=== PATIENT | male | born 1965 | race African-American/Black ===

== ENCOUNTER 2017-02-25 12:38 | Inpatient (IN) | payer OTHER ==
[2017-02-25 15:54] VITALS: BMI 22.5
--- NOTE | 2017-02-25 17:30 | HP ---
Admission ROS [facility] - [facility] Chief Complaint: I WANT TO GO TO REHAB Allergies/Adverse Reactions: Allergies Allergy/AdvReac Type Severity Reaction Status Date / Time No Known Allergies Allergy Verified 02/25/17 16:38 History of Present Illness: 51 YEARS OLD MALE WITH LONG HISTORY OF ALCOHOL NICOTINE, COCAINE DEPENDENCE METHADONE 40 MG AND BIPOLAR II IS ADMITTED TO REHAB Exam Limitations: No Limitations - Ebola screening Have you traveled outside of the country in the last 21 days: No Have you had contact with anyone from an Ebola affected area: No Have you been sick,other than usual withdrawal symptoms: No Do you have a fever: No - Review of Systems Constitutional: Loss of Appetite, Unintentional Wgt. Loss, Unexplained wgt Loss EENT: reports: No Symptoms Reported Respiratory: reports: No Symptoms reported Cardiac: reports: No Symptoms Reported GI: reports: Poor Appetite : reports: No Symptoms Reported Musculoskeletal: reports: No Symptoms Reported Integumentary: reports: No Symptoms Reported Neuro: reports: No Symptoms reported Endocrine: reports: No Symptoms Reported Hematology: reports: No Symptoms Reported Psychiatric: reports: Judgement Intact, Mood/Affect Appropiate, Orientated x3 Other Systems: Reviewed and Negative Patient History - Patient Medical History Hx Anemia: No Hx Asthma: No Hx Chronic Obstructive Pulmonary Disease (COPD): No Hx Cancer: No Hx Cardiac Disorders: No Hx Congestive Heart Failure: No Hx Hypertension: No (HISTORY OF HYPERTENSION) Hx Hypercholesterolemia: No Hx Pacemaker: No HX Cerebrovascular Accident: No Hx Seizures: No Hx Dementia: No Hx Diabetes: No Hx Gastrointestinal Disorders: No Hx Liver Disease: No Hx Genitourinary Disorders: No Hx Sexually Transmitted Disorders: No Hx Renal Disease (ESRD): No Hx Thyroid Disease: No Hx Human Immunodeficiency Virus (HIV): No Hx Hepatitis C: No Hx Depression: No Hx Suicide Attempt: No Hx Bipolar Disorder: Yes Hx Schizophrenia: No - Patient Surgical History Past Surgical History: No Hx Neurologic Surgery: No Hx Cataract Extraction: No Hx Cardiac Surgery: No Hx Lung Surgery: No Hx Breast Surgery: No Hx Breast Biopsy: No Hx Abdominal Surgery: No Hx Appendectomy: No Hx Cholecystectomy: No Hx Genitourinary Surgery: No Hx Orthopedic Surgery: No - PPD History Previous Implant?: Yes Documented Results: Negative w/proof Implanted On Prior R Admission?: Yes Date: 07/26/16 Results: 0 mm PPD to be Administered?: No - Smoking Cessation Smoking history: Current every day smoker Have you smoked in the past 12 months: Yes Aproximately how many cigarettes per day: 10 Cigars Per Day: 0 Hx Chewing Tobacco Use: No Initiated information on smoking cessation: Yes 'Breaking Loose' booklet given: 02/25/17 - Substance & Tx. History Hx Alcohol Use: Yes Hx Substance Use: Yes Substance Use Type: Alcohol, Cocaine Hx Substance Use Treatment: Yes (07/24-07/26/16 [facility]) - Substances Abused Alcohol Route: Oral Frequency: 1-2 times per week Amount used: [id number] Age of first use: 16 Date of Last Use: 02/25/17 Family Disease History - Family Disease History Family Disease History: Heart Disease: Brother ( HEART ATTACK), CA: Father ( THROAT), Mother ( ) Admission Physical Exam [facility] - Vital Signs Vital Signs: Vital Signs - 24 hr 02/25/17 15:50 Temperature 98 F Pulse Rate 74 Respiratory 20 Rate Blood Pressure 137/32 - Physical General Appearance: Yes: No Apparent Distress, Appropriately Dressed, Thin HEENTM: Yes: Hearing grossly Normal, Normal ENT Inspection, Normocephalic, Normal Voice Respiratory: Yes: Chest Non-Tender, Lungs Clear, Normal Breath Sounds, No Respiratory Distress, No Accessory Muscle Use Neck: Yes: Supple, Trachea in good position Breast: Yes: Breasts Symetrical Cardiology: Yes: Regular Rhythm, Regular Rate, S1, S2 Abdominal: Yes: Non Tender, Soft Genitourinary: Yes: Within Normal Limits Back: Yes: Normal Inspection Musculoskeletal: Yes: full range of Motion, Gait Steady Extremities: Yes: Normal Inspection, Normal Range of Motion, Non-Tender Neurological: Yes: Fully Oriented, Alert, Motor Strength 5/5, Normal Response Integumentary: Yes: Warm Lymphatic: Yes: Within Normal Limits - Diagnostic (1) Alcohol dependence with uncomplicated withdrawal Current Visit: Yes Status: Acute (2) Cocaine dependence with withdrawal Current Visit: Yes Status: Chronic (3) Methadone maintenance therapy patient Current Visit: Yes Status: Chronic Comment: 40 MG VERIFICATION PENDING (4) Nicotine dependence Current Visit: Yes Status: Acute Qualifiers: Nicotine product type: cigarettes Substance use status: in withdrawal Qualified Code(s): F17.213 - Nicotine dependence, cigarettes, with withdrawal (5) Weight loss Current Visit: Yes Status: Acute Cleared for Admission [facility] - Detox or Rehab [facility] Level of Care: Observation Bed Detox Regimen/Protocol: Not Applicable Claeared for Rehab Admission: Yes [facility] Breath Alcohol Content Breath Alcohol Content: 0.098 Urine Drug Screen - Results Drug Screen Negative: No Urine Drug Screen Results: CHRISTOPHER-Cocaine, MTD-Methadone
[2017-02-25] MEDS ORDERED: IBUPROFEN 400 MG TABLET (FP) PO PRN (17:33)
[2017-02-25] MEDS ORDERED: P-EPHED 60MG/TRIPROLIDI 2.5MG TABLET PO PRN (17:33)
[2017-02-25] MEDS ORDERED: diphenhydrAMINE HCL 50 MG CAPSULE PO PRN (17:33)
[2017-02-25] MEDS ORDERED: MENTHOL/PHENOL 1 EACH UD MM PRN (17:33)
[2017-02-25] MEDS ORDERED: LOPERAMIDE HCL 2 MG CAPSULE PO PRN (17:33)
[2017-02-25] MEDS ORDERED: MAG HYDROX/AL HYDROX/SIMETH 30 ML UNIT-DOSE CUP PO PRN (17:33)
[2017-02-25] MEDS ORDERED: NICOTINE POLACRILEX 2 MG GUM BC PRN (17:33)
[2017-02-25] MEDS ORDERED: ACETAMINOPHEN 325 MG TABLET (FP) PO PRN (17:33)
[2017-02-25] MEDS ORDERED: MAGNESIUM HYDROX 2400MG/30ML ORAL SUSPENSION 30 ML CUP PO PRN (17:33)
[2017-02-25] MEDS ORDERED: guaiFENesin/D-METHORPHAN HB 10 ML UNIT-DOSE CUPS PO PRN (17:33)
[2017-02-25] MEDS ORDERED: hydrOXYzine PAMOATE 50 MG CAPSULE (FP) PO PRN (17:33)
[2017-02-25] MEDS ORDERED: MAGNESIUM CITRATE 300 ML BOTTLE PO PRN (17:33)
[2017-02-25] MEDS: THIAMINE HCL 100 MG TABLET (FP) PO SCH (21:39)
[2017-02-25 23:18] LABS: URINE APPEARANCE CLEAR; URINE BILIRUBIN NEGATIVE (NEGATIVE); URINE BLOOD NEGATIVE (NEGATIVE); URINE COLOR YELLOW; URINE GLUCOSE (UA) NEGATIVE (NEGATIVE); URINE KETONE NEGATIVE (NEGATIVE); URINE LEUK ESTERASE NEGATIVE (NEGATIVE); URINE NITRITE NEGATIVE (NEGATIVE); URINE PROTEIN NEGATIVE (NEGATIVE); URINE UROBILINOGEN 2.0 E.U/dl E.U./dl (0.2-1.0)
--- NOTE | 2017-02-26 06:20 | HP ---
Psychiatrist Admission - Data Date of interview: 02/26/17 Admission source: [facility] Identifying data: This is the first [facility] admission for this 51 years old single Black male, unemployed with no source of incme, living in transitional housing Medical History: unremarkable. Smokes 10 cigarettes daily Psychiatric History: Denies history of previous psychiatric treatment Physical/Sexual Abuse/Trauma History: Denies emotional, physical or sexual abuse as wel as DV relationship Additional Comment: Reports history of 2 previous misdemeanor arrests Vital Signs: Vital Signs - 24 hr 02/25/17 02/26/17 02/26/17 15:50 00:30 03:30 Temperature 98 F Pulse Rate 74 Respiratory 20 20 20 Rate Blood Pressure 137/32 Allergies/Adverse Reactions: Allergies Allergy/AdvReac Type Severity Reaction Status Date / Time No Known Allergies Allergy Verified 02/25/17 16:38 Date of last physical exam: 02/25/17 Concur with the findings of this exam: Yes - Substance Abuse/Tx History Hx Alcohol Use: Yes Hx Substance Use: No Substance Use Type: Alcohol (Started drinking alcohol at age 16, consumes 10x 16oz of beer daily. Last drink on 02/25/17) Hx Substance Use Treatment: Yes (Attends [facility]. 2 previous inpt detox & one rehab) - Admission Criteria Previous failed treatment: No Poor recovery environment: Yes Comorbidities: Yes Lacks judgement: Yes Mental Status Exam - Mental Status Exam Alert and Oriented to: Time, Place, Person Cognitive Function: Fair Patient Appearance: Well Groomed Mood: Hopeful, Euthymic Affect: Constricted Patient Behavior: Cooperative Speech Pattern: Clear Voice Loudness: Normal Thought Process: Intact, Goal Oriented Hallucinations: Denies Suicidal Ideation: Denies Homicidal Ideation: Denies Insight/Judgement: Fair Sleep: Poorly Appetite: Fair Muscle strength/Tone: Normal Gait/Station: Normal Psychiatric Findings - Problem List ([place] 1, 2,3) (1) Alcohol dependence with uncomplicated withdrawal Current Visit: Yes Status: Acute (2) Cocaine dependence with withdrawal Current Visit: Yes Status: Chronic (3) Opioid dependence on agonist therapy Current Visit: Yes Status: Acute (4) Nicotine dependence Current Visit: Yes Status: Acute (5) Substance-induced sleep disorder Current Visit: Yes Status: Acute - Initial Treatment Plan Initial Treatment Plan: 1) Start Trazadone 100 mg po HS for insomnia. 2) Monitor progress
[2017-02-26 09:52] LABS: MCH 33.4 pg (25.7-33.7); MCHC 32.5 g/dl (32.0-35.9); MEAN CELL VOLUME 102.7 fl (80-96); MEAN PLT VOLUME 8.7 fl (7.5-11.1); PLATELET COUNT 125 K/MM3 (134-434); RDW 12.8 % (11.9-15.9); WHITE BLOOD COUNT 4.4 K/mm3 (4.0-10.0)
[2017-02-26] MEDS ORDERED: METHADONE HCL 40 MG DISPERSABLE TABLET PO ONE (10:00)
[2017-02-26 10:24] LABS: ALBUMIN 3.3 g/dl (3.4-5.0); ALK PHOS 145 U/L (45-117); ANION GAP 9 (8-16); BILIRUBIN,TOTAL 0.9 mg/dL (0.2-1.0); CALCIUM 8.3 mg/dL (8.5-10.1); CO2 27 mmol/L (21-32); CREATININE 0.7 mg/dL (0.7-1.3); GLUCOSE,RANDOM 102 mg/dL (74-106); SGOT/AST 129 U/L (15-37); SGPT/ALT 93 U/L (12-78); TOT PROT 7.7 g/dl (6.4-8.2)
[2017-02-26] MEDS: PRENATAL VITAMINS W/ FOLIC ACID TABLET (FP) PO SCH (10:24)
[2017-02-26] MEDS: NICOTINE 14 MG/24 HOURS TOPICAL PATCH TD SCH (10:25)
--- NOTE | 2017-02-26 14:46 | EKG ---
Test Reason : Blood Pressure : / mmHG Vent. Rate : 054 BPM Atrial Rate : 054 BPM P-R Int : 120 ms QRS Dur : 112 ms QT Int : 478 ms P-R-T Axes : 078 -28 -21 degrees QTc Int : 453 ms SINUS BRADYCARDIA RIGHT ATRIAL ENLARGEMENT VOLTAGE CRITERIA FOR LEFT VENTRICULAR HYPERTROPHY ST ELEVATION, CONSIDER EARLY REPOLARIZATION, PERICARDITIS, OR INJURY NONSPECIFIC ST AND T WAVE ABNORMALITY ABNORMAL ECG NO PREVIOUS ECGS AVAILABLE Confirmed by LEXII BRADSHAW, YAMILETH ([id number]) on 02/26/2017 2:45:54 PM Referred By: Confirmed By:YAMILETH SHULTZ MD
[2017-02-26] MEDS: THIAMINE HCL 100 MG TABLET (FP) PO SCH (22:21)
[2017-02-26] MEDS: traZODone HCL 100 MG TABLET (FP) PO SCH (22:21)
[2017-02-27] MEDS: METHADONE HCL 40 MG DISPERSABLE TABLET PO SCH (07:13)
[2017-02-27] MEDS ORDERED: cloNIDine HCL 0.1 MG TABLET PO ONE (08:07)
[2017-02-27] MEDS: PRENATAL VITAMINS W/ FOLIC ACID TABLET (FP) PO SCH (10:35)
[2017-02-27] MEDS: NICOTINE 14 MG/24 HOURS TOPICAL PATCH TD SCH (10:36)
[2017-02-27] MEDS: THIAMINE HCL 100 MG TABLET (FP) PO SCH (21:40)
[2017-02-27] MEDS: traZODone HCL 100 MG TABLET (FP) PO SCH (21:40)
[2017-02-28] MEDS: METHADONE HCL 40 MG DISPERSABLE TABLET PO SCH (06:56)
[2017-02-28] MEDS: PRENATAL VITAMINS W/ FOLIC ACID TABLET (FP) PO SCH (10:06)
[2017-02-28] MEDS: NICOTINE 14 MG/24 HOURS TOPICAL PATCH TD SCH (10:06)
[2017-02-28] MEDS: THIAMINE HCL 100 MG TABLET (FP) PO SCH (22:25)
[2017-02-28] MEDS: traZODone HCL 100 MG TABLET (FP) PO SCH (22:26)
[2017-03-01] MEDS: METHADONE HCL 40 MG DISPERSABLE TABLET PO SCH (06:39)
[2017-03-01 07:05] VITALS: BP 169/78; PULSE 57; TEMP 98.7
[2017-03-01] MEDS: NICOTINE 14 MG/24 HOURS TOPICAL PATCH TD SCH (10:32)
[2017-03-01] MEDS: PRENATAL VITAMINS W/ FOLIC ACID TABLET (FP) PO SCH (10:32)
== END 2017-03-01 11:00 | disposition left against medical advice (07) | DRG 770 ==
LOC: YASAS 12:38 → Y3W 18:26
PROVIDERS: ADMIT Psychiatry & Neurology Psychiatry; ATTEND Psychiatry & Neurology Psychiatry
PROC: HZ42ZZZ Group Counseling for Substance Abuse Treatment, Cognitive-Behavioral (ICD-10-PCS; principal; 2017-03-01)
DX: F11.23 Opioid dependence with withdrawal (principal); F10.230 Alcohol dependence with withdrawal, uncomplicated; F14.23 Cocaine dependence with withdrawal; F17.210 Nicotine dependence, cigarettes, uncomplicated; F19.282 Other psychoactive substance dependence with psychoactive substance-induced sleep disorder; F31.81 Bipolar II disorder
CPT/HCPCS: 36415; 80053; 81003; 85027; 86593; 93005; 93010

== ENCOUNTER 2018-04-30 11:21 | Inpatient (IN) | payer OTHER ==
[2018-04-30 12:33] VITALS: BMI 22.8
[2018-04-30] MEDS ORDERED: IBUPROFEN 400 MG TABLET (FP) PO PRN (14:29)
[2018-04-30] MEDS ORDERED: guaiFENesin/D-METHORPHAN HB 10 ML UNIT-DOSE CUPS PO PRN (14:29)
[2018-04-30] MEDS ORDERED: ACETAMINOPHEN 325 MG TABLET (FP) PO PRN (14:29)
[2018-04-30] MEDS ORDERED: NICOTINE POLACRILEX 4 MG GUM BC PRN (14:29)
[2018-04-30] MEDS ORDERED: LOPERAMIDE HCL 2 MG CAPSULE PO PRN (14:29)
[2018-04-30] MEDS ORDERED: MAGNESIUM HYDROX 2400MG/30ML ORAL SUSPENSION 30 ML CUP PO PRN (14:29)
[2018-04-30] MEDS ORDERED: MAG HYDROX/AL HYDROX/SIMETH 30 ML UNIT-DOSE CUP PO PRN (14:29)
[2018-04-30] MEDS ORDERED: MAGNESIUM CITRATE 300 ML BOTTLE PO PRN (14:29)
[2018-04-30] MEDS ORDERED: MENTHOL/PHENOL 1 EACH UD MM PRN (14:29)
[2018-04-30] MEDS ORDERED: P-EPHED 60MG/TRIPROLIDI 2.5MG TABLET PO PRN (14:29)
--- NOTE | 2018-04-30 14:38 | HP ---
Admission [facility] - [facility] Chief Complaint: needs to get my life back. 36 yr h/o heroin and alcohol dependency seeking rehab before he starts using regularly again. Allergies/Adverse Reactions: Allergies Allergy/AdvReac Type Severity Reaction Status Date / Time lorazepam [From Ativan] Allergy Severe Rash Verified 04/30/18 14:21 acetaminophen [From Tylenol] Allergy Rash Verified 04/30/18 14:21 History of Present Illness: 52 y/o m pt started using heroin and alcohol @ age 25. Recently at [facility] for detox entered on 04/23/18 and d/c 04/27/18. now seeking rehab. Exam Limitations: No Limitations - Ebola screening Have you traveled outside of the country in the last 21 days: No (N) Have you traveled to any of the following countries: [place] Have you had contact with anyone from an Ebola affected area: No Have you been sick,other than usual withdrawal symptoms: No Do you have a fever: No - Review of Systems Constitutional: Unintentional Wgt. Loss (40 lbs weight loss x 3 months) EENT: reports: No Symptoms Reported Respiratory: reports: No Symptoms reported Cardiac: reports: No Symptoms Reported GI: reports: No Symptoms Reported : reports: No Symptoms Reported Musculoskeletal: reports: Muscle Pain Integumentary: reports: No Symptoms Reported Neuro: reports: No Symptoms reported Endocrine: reports: No Symptoms Reported Hematology: reports: No Symptoms Reported Psychiatric: reports: No Sypmtoms Reported Other Systems: Reviewed and Negative Patient History - Patient Medical History Hx Anemia: No Hx Asthma: No Hx Chronic Obstructive Pulmonary Disease (COPD): No Hx Cancer: No Hx Cardiac Disorders: No Hx Congestive Heart Failure: No Hx Hypertension: Yes Hx Hypercholesterolemia: No Hx Pacemaker: No HX Cerebrovascular Accident: No Hx Seizures: No Hx Dementia: No Hx Diabetes: No Hx Gastrointestinal Disorders: No Hx Liver Disease: No Hx Genitourinary Disorders: No Hx Sexually Transmitted Disorders: No Hx Renal Disease (ESRD): No Hx Thyroid Disease: No Hx Human Immunodeficiency Virus (HIV): No Hx Hepatitis C: No Hx Depression: No Hx Suicide Attempt: No Hx Bipolar Disorder: Yes Hx Schizophrenia: No - Patient Surgical History Past Surgical History: No Hx Neurologic Surgery: No Hx Cataract Extraction: No Hx Cardiac Surgery: No Hx Lung Surgery: No Hx Breast Surgery: No Hx Breast Biopsy: No Hx Abdominal Surgery: No Hx Appendectomy: No Hx Cholecystectomy: No Hx Genitourinary Surgery: No Hx Section: No Hx Orthopedic Surgery: No Anesthesia Reaction: No - PPD History Date: 07/26/16 Results: 0 mm - Reproductive History Patient is a Female of Child Bearing Age (11 -55 yrs old): No - Smoking Cessation Smoking history: Current every day smoker Have you smoked in the past 12 months: Yes Aproximately how many cigarettes per day: 10 Cigars Per Day: 0 Hx Chewing Tobacco Use: No Initiated information on smoking cessation: Yes 'Breaking Loose' booklet given: 04/30/18 - Substance & Tx. History Hx Alcohol Use: Yes Hx Substance Use: Yes Substance Use Type: Heroin Hx Substance Use Treatment: Yes (detox, otp) - Substances Abused Heroin Route: Inhalation Frequency: Daily Amount used: 8 bags/d Age of first use: 25 Date of Last Use: 04/30/18 Alcohol Route: Oral Frequency: Daily Amount used: beer 2-six packs/d Age of first use: 25 Date of Last Use: 04/30/18 Alcohol-beer/vodka Route: Oral Frequency: Daily Amount used: 2-6 pks./1/2 pt. Age of first use: 25 Date of Last Use: 04/30/18 Cocaine Route: Inhalation Frequency: 1-2 times per week Amount used: $20 Age of first use: 25 Date of Last Use: 04/29/18 Family Disease History - Family Disease History Family Disease History: Heart Disease: Brother ( HEART ATTACK), CA: Father ( THROAT), Mother ( ) Admission Physical Exam S - Vital Signs Vital Signs: Vital Signs - 24 hr 04/30/18 12:13 Temperature 97.6 F Pulse Rate 84 Respiratory 18 Rate Blood Pressure 116/77 - Physical General Appearance: Yes: No Apparent Distress, Disheveled, Thin HEENTM: Yes: EOMI, Hearing grossly Normal, Normocephalic, Normal Voice Respiratory: Yes: Chest Non-Tender, Lungs Clear, Normal Breath Sounds Neck: Yes: Supple, Trachea in good position Breast: Yes: Within Normal Limits Cardiology: Yes: Regular Rhythm, Regular Rate, S1, S2 Abdominal: Yes: Normal Bowel Sounds, Non Tender, Flat, Soft, Increased Bowel Sounds Genitourinary: Yes: Within Normal Limits Back: Yes: Within Normal Limits Musculoskeletal: Yes: Within Normal Limits Extremities: Yes: Within Normal Limits Neurological: Yes: Within Normal Limits, radiator repairer II-XII NML intact, Fully Oriented, Motor Strength 5/5 Integumentary: Yes: Within Normal Limits Lymphatic: Yes: Within Normal Limits - Diagnostic (1) Opioid dependence Current Visit: Yes Status: Chronic Qualifiers: Substance use status: uncomplicated Qualified Code(s): F11.20 - Opioid dependence, uncomplicated Comment: pt was at [facility] for detox from 04/23/18 through 04/27/18. (2) Alcohol dependence Current Visit: Yes Status: Chronic Qualifiers: Substance use status: uncomplicated Qualified Code(s): F10.20 - Alcohol dependence, uncomplicated (3) Nicotine dependence Current Visit: Yes Status: Chronic Qualifiers: Nicotine product type: cigarettes Substance use status: uncomplicated Qualified Code(s): F17.210 - Nicotine dependence, cigarettes, uncomplicated (4) Substance-induced sleep disorder Current Visit: Yes Status: Acute (5) Weight loss Current Visit: Yes Status: Acute (6) Cocaine dependence with withdrawal Current Visit: Yes Status: Chronic Cleared for Admission [facility] - Detox or Rehab Detox Regimen/Protocol: Clonidine, Not Applicable Claeared for Rehab Admission: Yes [facility] Breath Alcohol Content Breath Alcohol Content: 0.040 Urine Drug Screen - Results Drug Screen Negative: No Urine Drug Screen Results: CHRISTOPHER-Cocaine, OPI-Opiates, BZO-Benzodiazepines, MTD- Methadone
[2018-04-30] MEDS ORDERED: TUBERCULIN PPD 5 TU/0.1ML VIAL ID ONE ×2 (19:29→22:10)
[2018-04-30] MEDS ORDERED: MELATONIN 5 MG TABLETS PO PRN (22:00)
[2018-04-30] MEDS: THIAMINE HCL 100 MG TABLET (FP) PO SCH (22:06)
[2018-05-01] MEDS ORDERED: cloNIDine HCL 0.1 MG TABLET PO ONE (06:46)
--- NOTE | 2018-05-01 06:50 | PN ---
[facility] Progress Note Note: Patient's blood pressure was B/P 179/103. Patient is asymptomatic Vital Signs Temperature 98.2 F 05/01/18 06:49 Pulse Rate 70 05/01/18 06:49 Respiratory Rate 18 05/01/18 06:49 Blood Pressure 179/103 05/01/18 06:49 O2 Sat by Pulse Oximetry (%) Action: Clonidine 0.1mg tablet oral ordered
--- NOTE | 2018-05-01 09:38 | HP ---
Psychiatrist Admission - Data Date of interview: 05/01/18 Admission source: Self-referred Identifying data: This is the second [facility] admission for this 52 years old single Black male, unemployed with no source of incme, living in transitional housing Medical History: Significant for hypertension. Smokes cigarettes 1 ppd Psychiatric History: Denies history of previous psychiatric treatment Physical/Sexual Abuse/Trauma History: Denies emotional, physical or sexual abuse as wel as DV relationship Additional Comment: Reports history of 2 previous misdemeanor arrests Vital Signs: Vital Signs - 24 hr 04/30/18 04/30/18 04/30/18 12:13 18:50 23:06 Temperature 97.6 F 97.0 F L 97.0 F L Pulse Rate 84 88 88 Respiratory 18 18 18 Rate Blood Pressure 116/77 131/65 131/65 05/01/18 05/01/18 05/01/18 01:19 03:30 06:49 Temperature 98.2 F Pulse Rate 70 Respiratory 18 20 18 Rate Blood Pressure 179/103 Allergies/Adverse Reactions: Allergies Allergy/AdvReac Type Severity Reaction Status Date / Time lorazepam [From Ativan] Allergy Severe Rash Verified 04/30/18 14:21 acetaminophen [From Tylenol] Allergy Rash Verified 04/30/18 14:21 Date of last physical exam: 04/30/18 Concur with the findings of this exam: Yes - Substance Abuse/Tx History Hx Alcohol Use: Yes Hx Substance Use: Yes Substance Use Type: Alcohol (Started drinking alcohol at age 25, consumes half pint of vodka & 2x 6pk of beer daily. Last drank on 04/30/18), Cocaine (Started using cocaine at age 25, consumes $20 worth daily. Last used on 04/29/18), Heroin (Started using heroin at age 25, consumes 8 bags daily. Last used on 04/30) Hx Substance Use Treatment: Yes (2 previous inpt detox & one inpy rehab admissions @ [facility]) Psychiatric Findings - Problem List ([place] 1, 2,3) (1) Alcohol dependence Current Visit: Yes Status: Chronic Qualifiers: Substance use status: uncomplicated Qualified Code(s): F10.20 - Alcohol dependence, uncomplicated (2) Opioid dependence Current Visit: Yes Status: Chronic Qualifiers: Substance use status: uncomplicated Qualified Code(s): F11.20 - Opioid dependence, uncomplicated Comment: [facility] 04/23/18 through 04/27/18. (3) Cocaine dependence Current Visit: Yes Status: Acute
[2018-05-01] MEDS: PRENATAL VITAMINS W/ FOLIC ACID TABLET (FP) PO SCH (10:05)
[2018-05-01] MEDS: NICOTINE 21 MG/24 HOURS TOPICAL PATCH TD SCH (10:05)
--- NOTE | 2018-05-01 15:35 | PN ---
[facility] Progress Note Note: Vital Signs Temperature 98.2 F 05/01/18 06:49 Pulse Rate 79 05/01/18 15:30 Respiratory Rate 18 05/01/18 06:49 Blood Pressure 149/89 05/01/18 15:30 O2 Sat by Pulse Oximetry (%) Patient requested methadone and brenda while in rehab. Patient stable, no distress , but irritable. Recently discharged from [facility] detox entered on 04/23/18 and d/c . Patient made aware of the protocol in rehab and currently can not be medicated with librium or methadone. Patient verbalized understanding.
[2018-05-01] MEDS ORDERED: TUBERCULIN PPD 5 TU/0.1ML VIAL ID ONE (15:54)
--- NOTE | 2018-05-01 16:07 | EKG ---
Test Reason : Blood Pressure : / mmHG Vent. Rate : 090 BPM Atrial Rate : 090 BPM P-R Int : 122 ms QRS Dur : 102 ms QT Int : 360 ms P-R-T Axes : 080 -22 035 degrees QTc Int : 440 ms NORMAL SINUS RHYTHM POSSIBLE LEFT ATRIAL ENLARGEMENT LEFT VENTRICULAR HYPERTROPHY NONSPECIFIC T WAVE ABNORMALITY ABNORMAL ECG WHEN COMPARED WITH ECG OF 25-FEB-2017 22:24, VENT. RATE HAS INCREASED BY 36 BPM Confirmed by Marsha Saez ([id number]) on 05/01/2018 4:06:42 PM Referred By: Confirmed By:Marsha Saez
[2018-05-01] MEDS: THIAMINE HCL 100 MG TABLET (FP) PO SCH (23:18)
[2018-05-02 06:50] VITALS: BP 154/72; PULSE 54; TEMP 98.6
[2018-05-02] MEDS: PRENATAL VITAMINS W/ FOLIC ACID TABLET (FP) PO SCH (10:09)
[2018-05-02] MEDS: NICOTINE 21 MG/24 HOURS TOPICAL PATCH TD SCH (10:09)
[2018-05-02 13:00] LABS: HEMATOCRIT 33.5 % (35.4-49); HEMOGLOBIN 11.2 GM/dL (11.7-16.9); MCH 34.3 pg (25.7-33.7); MCHC 33.3 g/dl (32.0-35.9); MEAN PLT VOLUME 7.8 fl (7.5-11.1); PLATELET COUNT 221 K/MM3 (134-434); RBC 3.26 M/mm3 (4.00-5.60); RDW 13.8 % (11.9-15.9); WHITE BLOOD COUNT 4.3 K/mm3 (4.0-10.0)
[2018-05-02 13:18] LABS: ALBUMIN 2.3 g/dl (3.4-5.0); ANION GAP 5 MMOL/L (8-16); BLOOD UREA NITROGEN 6 mg/dL (7-18); CALCIUM 7.6 mg/dL (8.5-10.1); CHLORIDE 103 mmol/L (98-107); CO2 29 mmol/L (21-32); GLUCOSE,RANDOM 150 mg/dL (74-106); SODIUM 137 mmol/L (136-145)
[2018-05-02 13:21] LABS: ALK PHOS 122 U/L (45-117); BILIRUBIN,TOTAL 0.5 mg/dL (0.2-1.0); CREATININE 0.7 mg/dL (0.7-1.3); SGOT/AST 48 U/L (15-37); SGPT/ALT 45 U/L (12-78); TOT PROT 7.4 g/dl (6.4-8.2)
[2018-05-02 14:09] LABS: SICKLE CELL SCREEN NEGATIVE (NEGATIVE)
== END 2018-05-02 10:00 | disposition left against medical advice (07) | DRG 770 ==
LOC: YASAS 11:21 → Y3W 15:27
PROVIDERS: ADMIT Psychiatry & Neurology Psychiatry; ATTEND Psychiatry & Neurology Psychiatry
PROC: HZ42ZZZ Group Counseling for Substance Abuse Treatment, Cognitive-Behavioral (ICD-10-PCS; principal; 2018-04-30)
DX: F11.20 Opioid dependence, uncomplicated (principal); F10.20 Alcohol dependence, uncomplicated; F14.20 Cocaine dependence, uncomplicated; F17.210 Nicotine dependence, cigarettes, uncomplicated; F19.282 Other psychoactive substance dependence with psychoactive substance-induced sleep disorder; I10 Essential (primary) hypertension; Z88.8 Allergy status to other drugs, medicaments and biological substances
CPT/HCPCS: 36415; 80053; 85027; 85660; 86593; 86803; 93005; 93010; J0735

== ENCOUNTER 2018-06-17 09:18 | Inpatient (IN) | payer OTHER ==
[2018-06-17 10:19] VITALS: BMI 21.6
--- NOTE | 2018-06-17 11:03 | HP ---
COWS - Scale Resting Pulse: 1= [place] 81-100 Sweatin= Chills/Flushing Restless Observation: 3= Extraneous Movement Pupil Size: 1= Pupils >than Normal Bone or Joint Aches: 2= Severe Diffuse Aches Runny Nose/ Eye Tearin= Runny Nose/Eyes GI Upset > 30mins: 2= Nausea/Diarrhea Tremor Observation: 2= Slight Tremor Visible Yawning Observation: 1= 1-2x During Session Anxiety or Irritability: 2=Irritable/Anxious Goose Flesh Skin: 0=Smooth Skin COWS Score: 17 CIWA Score - CIWA Score Nausea/Vomitin Muscle Tremors: 2 Anxiety: 3 Agitation: 2 Paroxysmal Sweats: 1-Minimal Palms Moist Orientation: 0-Oriented Tacttile Disturbances: 1-Very Mild Itch/Numbness Auditory Disturbances: 1-Very Mild Visual Disturbances: 1-Very Mild Sensitivity Headache: 2-Mild CIWA-Ar Total Score: 15 Admission ROS S - HPI Chief Complaint: i need help to stop using heroin,alcohol,cocaine,cannabis,dependence,seeking detox,withdrawal symptom,last detox in [facility] in 04/26 weight loss dry skin anxiety,depression,insomnia longest period of sobriety 6 years Allergies/Adverse Reactions: Allergies Allergy/AdvReac Type Severity Reaction Status Date / Time acetaminophen [From Tylenol] Allergy Rash Verified 04/30/18 14:21 ibuprofen Allergy Rash Verified 06/17/18 10:50 History of Present Illness: i need help to stop using heroin,alcohol,cocaine,cannabis,xanax as mentioned Exam Limitations: No Limitations - Ebola screening Have you traveled outside of the country in the last 21 days: No Have you had contact with anyone from an Ebola affected area: No Have you been sick,other than usual withdrawal symptoms: No Do you have a fever: No - Review of Systems Constitutional: Chills, Loss of Appetite, Malaise, Night Sweats, Changes in sleep, Weakness, Unintentional Wgt. Loss EENT: reports: Tearing, Nose Congestion Respiratory: reports: No Symptoms reported Cardiac: reports: No Symptoms Reported GI: reports: Nausea, Vomiting, Abdominal cramping : reports: No Symptoms Reported Musculoskeletal: reports: Back Pain, Joint Pain, Muscle Pain, Joint Stiffness Neuro: reports: Headache, Tremors Endocrine: reports: No Symptoms Reported Hematology: reports: No Symptoms Reported Psychiatric: reports: No Sypmtoms Reported, Judgement Intact, Mood/Affect Appropiate, Orientated x3, Anxious, Depressed (insomnia) Patient History - Patient Medical History Hx Anemia: No Hx Asthma: No Hx Chronic Obstructive Pulmonary Disease (COPD): No Hx Cancer: No Hx Cardiac Disorders: No Hx Congestive Heart Failure: No Hx Hypertension: Yes (no medications) Hx Hypercholesterolemia: No Hx Pacemaker: No HX Cerebrovascular Accident: No Hx Seizures: No Hx Dementia: No Hx Diabetes: No Hx Gastrointestinal Disorders: No Hx Liver Disease: No Hx Genitourinary Disorders: No Hx Sexually Transmitted Disorders: No Hx Renal Disease (ESRD): No Hx Thyroid Disease: No Hx Human Immunodeficiency Virus (HIV): No (last 04/26 negative) Hx Hepatitis C: No Hx Depression: No Hx Suicide Attempt: No Hx Bipolar Disorder: Yes Hx Schizophrenia: No Other Medical History: no suicidal,no homicidal - Patient Surgical History Past Surgical History: No Hx Neurologic Surgery: No Hx Cataract Extraction: No Hx Cardiac Surgery: No Hx Lung Surgery: No Hx Breast Surgery: No Hx Breast Biopsy: No Hx Abdominal Surgery: No Hx Appendectomy: No Hx Cholecystectomy: No Hx Genitourinary Surgery: No Hx Section: No Hx Orthopedic Surgery: No Anesthesia Reaction: No - PPD History Previous Implant?: Yes Date: 05/03/18 Results: not read PPD to be Administered?: Yes - Smoking Cessation Smoking history: Current every day smoker Have you smoked in the past 12 months: Yes Aproximately how many cigarettes per day: 10 Cigars Per Day: 0 Hx Chewing Tobacco Use: No Initiated information on smoking cessation: Yes 'Breaking Loose' booklet given: 06/17/18 - Substance & Tx. History Hx Alcohol Use: Yes Substance Use Type: Alcohol, Cocaine, Heroin, Tranquilizers Hx Substance Use Treatment: Yes (last [facility] 04/26) - Substances Abused Heroin Route: Inhalation Frequency: Daily Amount used: 7-8 bags Age of first use: 25 Date of Last Use: 06/16/18 Alcohol Route: Oral Frequency: Daily Amount used: 2 6pks beer/ 1/2 pint liquor Age of first use: 12 Date of Last Use: 06/17/18 Cocaine Route: Inhalation Frequency: Daily Amount used: 1/2 gram Age of first use: 25 Date of Last Use: 06/17/18 Marijuana/Hashish Route: Smoking Frequency: 1-3 times last 30 days Amount used: 1 joint Age of first use: 25 Date of Last Use: 06/09/18 Family Disease History - Family Disease History Family Disease History: Heart Disease: Brother ( HEART ATTACK), CA: Father ( THROAT), Mother ( ) Admission Physical Exam [facility] - Vital Signs Vital Signs: Vital Signs - 24 hr 06/17/18 10:16 Temperature 99.4 F Pulse Rate 83 Respiratory 18 Rate Blood Pressure 151/107 H - Physical General Appearance: Yes: Moderate Distress, Tremorous, Irritable, Sweating, Anxious HEENTM: Yes: Normal ENT Inspection, VIVIANE, Pharynx Normal Respiratory: Yes: Lungs Clear, Normal Breath Sounds, No Respiratory Distress Neck: Yes: Within Normal Limits, Supple, Trachea in good position Breast: Yes: Within Normal Limits Cardiology: Yes: Within Normal Limits, Regular Rhythm, Regular Rate, S1, S2 Abdominal: Yes: Within Normal Limits, Normal Bowel Sounds, Non Tender, Soft Genitourinary: Yes: Within Normal Limits Back: Yes: Normal Inspection, Muscle Spasm Musculoskeletal: Yes: full range of Motion, Back pain, Muscle Pain Extremities: Yes: Tremors Neurological: Yes: lathe turner II-XII NML intact, Fully Oriented, Alert, Motor Strength 5/5 Integumentary: Yes: Dry Lymphatic: Yes: Within Normal Limits - Diagnostic (1) Opioid dependence with withdrawal Current Visit: No Status: Acute (2) Alcohol dependence with uncomplicated withdrawal Current Visit: No Status: Acute (3) Cocaine dependence Current Visit: No Status: Acute (4) Weight loss Current Visit: No Status: Acute (5) Cocaine dependence with withdrawal Current Visit: No Status: Chronic (6) Hypertension Current Visit: No Status: Chronic Qualifiers: Hypertension type: unspecified secondary hypertension Qualified Code(s): I15.9 - Secondary hypertension, unspecified Comment: DIETARY CONTROL AMLODIPIN 5 MG LAST DOSE 2 MONTHS AGO (7) Essential hypertension Current Visit: Yes Status: Chronic (8) Nicotine dependence Current Visit: Yes Status: Acute Cleared for Admission [facility] - Detox or Rehab [facility] Level of Care: Medically Managed Detox Regimen/Protocol: Methadone/Librium [facility] Breath Alcohol Content Breath Alcohol Content: 0 Urine Drug Screen - Results Drug Screen Negative: No Urine Drug Screen Results: THC-Marijuana, CHRISTOPHER-Cocaine, OPI-Opiates, BZO- Benzodiazepines
[2018-06-17] MEDS ORDERED: MAGNESIUM CITRATE 300 ML BOTTLE PO PRN (11:24)
[2018-06-17] MEDS ORDERED: guaiFENesin/D-METHORPHAN HB 10 ML UNIT-DOSE CUPS PO PRN (11:24)
[2018-06-17] MEDS ORDERED: LOPERAMIDE HCL 2 MG CAPSULE PO PRN (11:24)
[2018-06-17] MEDS ORDERED: P-EPHED 60MG/TRIPROLIDI 2.5MG TABLET PO PRN (11:24)
[2018-06-17] MEDS ORDERED: MAGNESIUM HYDROX 2400MG/30ML ORAL SUSPENSION 30 ML CUP PO PRN (11:24)
[2018-06-17] MEDS ORDERED: MENTHOL/PHENOL 1 EACH UD MM PRN (11:24)
[2018-06-17] MEDS ORDERED: chlordiazePOXIDE HCL 25 MG CAPSULE PO PRN (11:24)
[2018-06-17] MEDS ORDERED: MAG HYDROX/AL HYDROX/SIMETH 30 ML UNIT-DOSE CUP PO PRN (11:24)
[2018-06-17] MEDS ORDERED: hydrOXYzine PAMOATE 25 MG CAPSULE (FP) PO PRN (11:45)
[2018-06-17] MEDS ORDERED: cloNIDine HCL 0.1 MG TABLET PO ONE (11:52)
[2018-06-17] MEDS ORDERED: METHADONE HCL 10 MG TABLET (FOR DETOX USE ONLY) PO ONE ×2 (12:00→23:00)
[2018-06-17] MEDS ORDERED: COLLOIDAL OATMEAL 1 BAR EACH TP PRN (13:30)
[2018-06-17] MEDS: CYCLOBENZAPRINE HCL 5 MG TABLET PO PRN (14:15)
[2018-06-17] MEDS: NICOTINE 21 MG/24 HOURS TOPICAL PATCH TD SCH (14:27)
[2018-06-17] MEDS: chlordiazePOXIDE HCL 25 MG CAPSULE PO SCH ×2 (17:38→21:59)
[2018-06-17] MEDS: cloNIDine HCL 0.1 MG TABLET PO SCH (21:59)
[2018-06-17] MEDS: THIAMINE HCL 100 MG TABLET (FP) PO SCH (21:59)
[2018-06-17] MEDS ORDERED: MELATONIN 5 MG TABLETS PO PRN (22:00)
[2018-06-18] MEDS: chlordiazePOXIDE HCL 25 MG CAPSULE PO SCH ×4 (06:00→22:22)
--- NOTE | 2018-06-18 08:50 | CONSULT ---
[facility] Psychiatric Consult - Data Date of interview: 06/18/18 Admission source: [facility] Identifying data: This is 53 years old male, single, homeless, on PA, with no psychiatric hospitalization history, as per compuiter with history of Bipolar Disorder, reports Alcohol and Nicotine dependence, reports Alcohol withdrawal symptoms and seeking detox. Denies suicidal homicidal history. Substance Abuse History: - Smoking Cessation. Smoking history: Current every day smoker. Have you smoked in the past 12 months: Yes. Aproximately how many cigarettes per day: 10. Cigars Per Day: 0. Hx Chewing Tobacco Use: No. Initiated information on smoking cessation: Yes. 'Breaking Loose' booklet given : 06/17/18. - Substance & Tx. History. Hx Alcohol Use: Yes. Substance Use Type: Alcohol, Cocaine, Heroin, Tranquilizers. Hx Substance Use Treatment: Yes (last [facility] 04/26) Medical History: HTN Psychiatric History: As per computer patient has Bipolar Disorder history, reports no psychiatric hospitalization hoistory, no psychiatric medicastions taking prior to admission. Reports chronic insomnia and depressed mood. Denies suicidal and homicidal history Physical/Sexual Abuse/Trauma History: Denies Additional Comment: Seroquel 100mg po qhs Mental Status Exam - Mental Status Exam Alert and Oriented to: Person Cognitive Function: Fair Patient Appearance: Unkempt Mood: Sad, Apprehensive Affect: Mood Congruent Patient Behavior: Cooperative Speech Pattern: Delayed Voice Loudness: Mildly Soft/Quiet Thought Process: Circumstantial, Goal Oriented Thought Disorder: Being Controlled Hallucinations: Denies Suicidal Ideation: Denies Homicidal Ideation: Denies Insight/Judgement: Fair Sleep: Difficulty falling asleep Appetite: Weight loss Muscle strength/Tone: Normal Gait/Station: Normal Additional Comments: Seroquel 100mg po qhs Psychiatric Findings - Problem List ([place] 1, 2,3) (1) Nicotine dependence Current Visit: Yes Status: Acute (2) Alcohol dependence with uncomplicated withdrawal Current Visit: No Status: Acute (3) Cocaine dependence Current Visit: No Status: Acute (4) Opioid dependence on agonist therapy Current Visit: No Status: Acute (5) Opioid dependence with withdrawal Current Visit: No Status: Acute (6) Substance-induced sleep disorder Current Visit: No Status: Acute (7) Weight loss Current Visit: No Status: Acute (8) Alcohol dependence Current Visit: No Status: Chronic Qualifiers: Substance use status: uncomplicated Qualified Code(s): F10.20 - Alcohol dependence, uncomplicated (9) Hypertension Current Visit: No Status: Chronic Qualifiers: Hypertension type: unspecified secondary hypertension Qualified Code(s): I15.9 - Secondary hypertension, unspecified Comment: DIETARY CONTROL AMLODIPIN 5 MG LAST DOSE 2 MONTHS AGO (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
--- NOTE | 2018-06-18 09:51 | EKG ---
Test Reason : Blood Pressure : / mmHG Vent. Rate : 086 BPM Atrial Rate : 086 BPM P-R Int : 122 ms QRS Dur : 104 ms QT Int : 368 ms P-R-T Axes : 080 -35 055 degrees QTc Int : 440 ms NORMAL SINUS RHYTHM RIGHT ATRIAL ENLARGEMENT LEFT AXIS DEVIATION PULMONARY DISEASE PATTERN VOLTAGE CRITERIA FOR LEFT VENTRICULAR HYPERTROPHY NONSPECIFIC T WAVE ABNORMALITY ABNORMAL ECG WHEN COMPARED WITH ECG OF 30-APR-2018 18:08, NON-SPECIFIC CHANGE IN ST SEGMENT IN LATERAL LEADS Confirmed by LOREN BRADSHAW, TOPHER ([id number]) on 06/18/2018 9:50:53 AM Referred By: Confirmed By:TOPHER PIMETNEL MD
[2018-06-18 10:00] LABS: HEMATOCRIT 38.2 % (35.4-49); HEMOGLOBIN 12.2 GM/dL (11.7-16.9); MCH 32.4 pg (25.7-33.7); MCHC 31.9 g/dl (32.0-35.9); MEAN CELL VOLUME 101.5 fl (80-96); MEAN PLT VOLUME 8.3 fl (7.5-11.1); PLATELET COUNT 149 K/MM3 (134-434); RBC 3.77 M/mm3 (4.00-5.60); RDW 13.4 % (11.9-15.9); WHITE BLOOD COUNT 4.7 K/mm3 (4.0-10.0)
[2018-06-18] MEDS ORDERED: METHADONE HCL 10 MG TABLET (FOR DETOX USE ONLY) PO SCH (10:00)
[2018-06-18] MEDS: PRENATAL VITAMINS W/ FOLIC ACID TABLET (FP) PO SCH (10:24)
[2018-06-18] MEDS: cloNIDine HCL 0.1 MG TABLET PO SCH ×2 (10:24→22:22)
[2018-06-18] MEDS: NICOTINE 21 MG/24 HOURS TOPICAL PATCH TD SCH (10:24)
[2018-06-18 10:30] LABS: ALBUMIN 3.5 g/dl (3.4-5.0); ALK PHOS 123 U/L (45-117); ANION GAP 7 MMOL/L (8-16); BILIRUBIN,TOTAL 0.6 mg/dL (0.2-1); BLOOD UREA NITROGEN 13 mg/dL (7-18); CALCIUM 8.5 mg/dL (8.5-10.1); CHLORIDE 106 mmol/L (98-107); CO2 26 mmol/L (21-32); CREATININE 0.9 mg/dL (0.55-1.3); GLUCOSE,RANDOM 97 mg/dL (74-106); POTASSIUM 3.5 mmol/L (3.5-5.1); SGOT/AST 104 U/L (15-37); SGPT/ALT 81 U/L (13-61); SODIUM 139 mmol/L (136-145); TOT PROT 8.2 g/dl (6.4-8.2)
[2018-06-18] MEDS ORDERED: FLU VACCINE QUAD 60 MCG/0.5 ML (MDV 18-19) IM ONE ×2 (12:00→14:30)
--- NOTE | 2018-06-18 13:01 | PN ---
S CIWA - CIWA Score Nausea/Vomitin-Mild Nausea/No Vomiting Muscle Tremors: 4-Moderate,w/Arms Extend Anxiety: 3 Agitation: 3 Paroxysmal Sweats: 1-Minimal Palms Moist Orientation: 0-Oriented Tacttile Disturbances: 0-None Auditory Disturbances: 0-None Visual Disturbances: 0-None Headache: 1-Very Mild CIWA-Ar Total Score: 13 [facility] COWS - Scale Resting Pulse: 0= [place] 80 or Below Sweatin= Chills/Flushing Restless Observation: 1= Difficult to Sit Still Pupil Size: 0= Normal to Room Light Bone or Joint Aches: 2= Severe Diffuse Aches Runny Nose/ Eye Tearin= Nasal Congestion GI Upset > 30mins: 2= Nausea/Diarrhea Tremor Observation of Outstretched Hands: 2= Slight Tremor Visible Yawning Observation: 2= >3x During Session Anxiety or Irritability: 2=Irritable/Anxious Goose Flesh Skin: 0=Smooth Skin COWS Score: 13 [facility] Progress Note (SOAP) Subjective: muscle cramping joints pain sweat tremor restlessness Objective: 06/18/18 13:01 Vital Signs Temperature 97.9 F 06/18/18 10:11 Pulse Rate 62 06/18/18 10:11 Respiratory Rate 20 06/18/18 10:11 Blood Pressure 138/105 H 06/18/18 10:11 O2 Sat by Pulse Oximetry (%) Laboratory Last Values WBC 4.7 K/mm3 (4.0-10.0) 06/18/18 06:00 RBC 3.77 M/mm3 (4.00-5.60) L 06/18/18 06:00 Hgb 12.2 GM/dL (11.7-16.9) 06/18/18 06:00 Hct 38.2 % (35.4-49) 06/18/18 06:00 MCV 101.5 fl (80-96) H 06/18/18 06:00 MCH 32.4 pg (25.7-33.7) 06/18/18 06:00 MCHC 31.9 g/dl (32.0-35.9) L 06/18/18 06:00 RDW 13.4 % (11.9-15.9) 06/18/18 06:00 Plt Count 149 K/MM3 (134-434) D 06/18/18 06:00 MPV 8.3 fl (7.5-11.1) 06/18/18 06:00 Sodium 139 mmol/L (136-145) 06/18/18 06:00 Potassium 3.5 mmol/L (3.5-5.1) 06/18/18 06:00 Chloride 106 mmol/L (98-107) 06/18/18 06:00 Carbon Dioxide 26 mmol/L (21-32) 06/18/18 06:00 Anion Gap 7 MMOL/L (8-16) L 06/18/18 06:00 BUN 13 mg/dL (7-18) 06/18/18 06:00 Creatinine 0.9 mg/dL (0.55-1.3) 06/18/18 06:00 Creat Clearance w eGFR > 60 (>60) 06/18/18 06:00 Random Glucose 97 mg/dL (74-106) 06/18/18 06:00 Calcium 8.5 mg/dL (8.5-10.1) 06/18/18 06:00 Total Bilirubin 0.6 mg/dL (0.2-1) 06/18/18 06:00 AST 104 U/L (15-37) H 06/18/18 06:00 ALT 81 U/L (13-61) H 06/18/18 06:00 Alkaline Phosphatase 123 U/L (45-117) H 06/18/18 06:00 Total Protein 8.2 g/dl (6.4-8.2) 06/18/18 06:00 Albumin 3.5 g/dl (3.4-5.0) 06/18/18 06:00 RPR Titer Nonreactive (NONREACTIVE) 06/18/18 06:00 repeat ast lab noted 06/18/18 13:02 Assessment: 06/18/18 13:02 withdrawal sx ast elevation Plan: continue detox repeat ast
[2018-06-18 15:05] LABS: URINE APPEARANCE CLEAR; URINE BILIRUBIN NEGATIVE (<2.0 mg/dL); URINE COLOR DKYELLOW; URINE GLUCOSE (UA) NEGATIVE (NEGATIVE); URINE KETONE NEGATIVE (NEGATIVE); URINE LEUK ESTERASE NEGATIVE (NEGATIVE); URINE NITRITE NEGATIVE (NEGATIVE); URINE PROTEIN NEGATIVE (NEGATIVE); URINE UROBILINOGEN 4.0 E.U/dl mg/dL (0.2-1.0)
[2018-06-18] MEDS: QUEtiapine FUMARATE 100 MG TABLET (FP) PO SCH (20:55)
[2018-06-18] MEDS: THIAMINE HCL 100 MG TABLET (FP) PO SCH (22:21)
[2018-06-19] MEDS: chlordiazePOXIDE HCL 25 MG CAPSULE PO SCH ×2 (06:12→10:45)
[2018-06-19] MEDS: cloNIDine HCL 0.1 MG TABLET PO SCH ×2 (10:45→22:12)
[2018-06-19] MEDS: CYCLOBENZAPRINE HCL 5 MG TABLET PO PRN (10:45)
[2018-06-19] MEDS: PRENATAL VITAMINS W/ FOLIC ACID TABLET (FP) PO SCH (10:45)
[2018-06-19] MEDS: NICOTINE 21 MG/24 HOURS TOPICAL PATCH TD SCH (10:45)
[2018-06-19] MEDS: METHADONE HCL 5 MG TABLET (FOR DETOX USE ONLY) PO SCH (10:45)
--- NOTE | 2018-06-19 11:23 | PN ---
S CIWA - CIWA Score Nausea/Vomitin-Mild Nausea/No Vomiting Muscle Tremors: 3 Anxiety: 2 Agitation: 2 Paroxysmal Sweats: 1-Minimal Palms Moist Orientation: 0-Oriented Tacttile Disturbances: 1-Very Mild Itch/Numbness Auditory Disturbances: 0-None Visual Disturbances: 0-None Headache: 0-None Present CIWA-Ar Total Score: 10 [facility] COWS - Scale Resting Pulse: 0= [place] 80 or Below Sweatin= Chills/Flushing Restless Observation: 1= Difficult to Sit Still Pupil Size: 0= Normal to Room Light Bone or Joint Aches: 2= Severe Diffuse Aches Runny Nose/ Eye Tearin= Runny Nose/Eyes GI Upset > 30mins: 1= Stomach Cramp Tremor Observation of Outstretched Hands: 1= Tremor [place], Not Seen Yawning Observation: 1= 1-2x During Session Anxiety or Irritability: 1=Feels Anxious/Irritable Goose Flesh Skin: 0=Smooth Skin COWS Score: 10 [facility] Progress Note (SOAP) Subjective: body ache joints p pain sweat tremor trouble sleep at night Objective: 06/19/18 11:31 Vital Signs Temperature 98.4 F 06/19/18 10:49 Pulse Rate 68 06/19/18 10:49 Respiratory Rate 18 06/19/18 10:49 Blood Pressure 159/95 06/19/18 10:49 O2 Sat by Pulse Oximetry (%) Laboratory Last Values WBC 4.7 K/mm3 (4.0-10.0) 06/18/18 06:00 RBC 3.77 M/mm3 (4.00-5.60) L 06/18/18 06:00 Hgb 12.2 GM/dL (11.7-16.9) 06/18/18 06:00 Hct 38.2 % (35.4-49) 06/18/18 06:00 MCV 101.5 fl (80-96) H 06/18/18 06:00 MCH 32.4 pg (25.7-33.7) 06/18/18 06:00 MCHC 31.9 g/dl (32.0-35.9) L 06/18/18 06:00 RDW 13.4 % (11.9-15.9) 06/18/18 06:00 Plt Count 149 K/MM3 (134-434) D 06/18/18 06:00 MPV 8.3 fl (7.5-11.1) 06/18/18 06:00 Sodium 139 mmol/L (136-145) 06/18/18 06:00 Potassium 3.5 mmol/L (3.5-5.1) 06/18/18 06:00 Chloride 106 mmol/L (98-107) 06/18/18 06:00 Carbon Dioxide 26 mmol/L (21-32) 06/18/18 06:00 Anion Gap 7 MMOL/L (8-16) L 06/18/18 06:00 BUN 13 mg/dL (7-18) 06/18/18 06:00 Creatinine 0.9 mg/dL (0.55-1.3) 06/18/18 06:00 Creat Clearance w eGFR > 60 (>60) 06/18/18 06:00 Random Glucose 97 mg/dL (74-106) 06/18/18 06:00 Calcium 8.5 mg/dL (8.5-10.1) 06/18/18 06:00 Total Bilirubin 0.6 mg/dL (0.2-1) 06/18/18 06:00 AST 76 U/L (15-37) H 06/19/18 07:00 ALT 81 U/L (13-61) H 06/18/18 06:00 Alkaline Phosphatase 123 U/L (45-117) H 06/18/18 06:00 Total Protein 8.2 g/dl (6.4-8.2) 06/18/18 06:00 Albumin 3.5 g/dl (3.4-5.0) 06/18/18 06:00 Urine Color Dkyellow 06/18/18 10:30 Urine Appearance Clear 06/18/18 10:30 Urine pH 6.0 (5.0-8.0) 06/18/18 10:30 Ur Specific [place] 1.026 (1.010-1.035) 06/18/18 10:30 Urine Protein Negative (NEGATIVE) 06/18/18 10:30 Urine Glucose (UA) Negative (NEGATIVE) 06/18/18 10:30 Urine Ketones Negative (NEGATIVE) 06/18/18 10:30 Urine Blood Negative (NEGATIVE) 06/18/18 10:30 Urine Nitrite Negative (NEGATIVE) 06/18/18 10:30 Urine Bilirubin Negative (<2.0 mg/dL) 06/18/18 10:30 Urine Urobilinogen 4.0 e.u/dl mg/dL (0.2-1.0) 06/18/18 10:30 Ur Leukocyte Esterase Negative (NEGATIVE) 06/18/18 10:30 RPR Titer Nonreactive (NONREACTIVE) 06/18/18 06:00 lab noted Assessment: 06/19/18 11:31 withdrawal sx Plan: continue detox
[2018-06-19] MEDS: chlordiazePOXIDE 5 MG CAPSULE PO SCH ×2 (18:02→22:11)
[2018-06-19] MEDS: QUEtiapine FUMARATE 100 MG TABLET (FP) PO SCH (22:12)
[2018-06-19] MEDS: THIAMINE HCL 100 MG TABLET (FP) PO SCH (22:12)
[2018-06-20] MEDS: chlordiazePOXIDE 5 MG CAPSULE PO SCH ×2 (05:57→10:34)
[2018-06-20] MEDS ORDERED: amLODIPine BESYLATE 5 MG TABLET (FP) PO SCH (10:15)
[2018-06-20] MEDS: NICOTINE 21 MG/24 HOURS TOPICAL PATCH TD SCH (10:34)
[2018-06-20] MEDS: METHADONE HCL 5 MG TABLET (FOR DETOX USE ONLY) PO SCH (10:34)
[2018-06-20] MEDS: PRENATAL VITAMINS W/ FOLIC ACID TABLET (FP) PO SCH (10:34)
[2018-06-20] MEDS: cloNIDine HCL 0.1 MG TABLET PO SCH ×2 (10:34→23:01)
--- NOTE | 2018-06-20 11:06 | PN ---
[facility] Progress Note Note: PATIENT PRESENTS WITH IRRITABILITY, ANXIOUS. Vital Signs Temperature 97.3 F L 06/20/18 10:00 Pulse Rate 73 06/20/18 10:00 Respiratory Rate 18 06/20/18 10:00 Blood Pressure 158/92 06/20/18 10:00 O2 Sat by Pulse Oximetry (%) Laboratory Tests 06/18/18 06/18/18 06/18/18 06:00 06:00 06:00 WBC 4.7 RBC 3.77 L Hgb 12.2 Hct 38.2 MCV 101.5 H MCH 32.4 MCHC 31.9 L RDW 13.4 Plt Count 149 D MPV 8.3 Sodium 139 Potassium 3.5 Chloride 106 Carbon Dioxide 26 Anion Gap 7 L BUN 13 Creatinine 0.9 Creat Clearance w eGFR > 60 Random Glucose 97 Calcium 8.5 Total Bilirubin 0.6 AST 104 H ALT 81 H Alkaline Phosphatase 123 H Total Protein 8.2 Albumin 3.5 Urine Color Urine Appearance Urine pH Ur Specific [place] Urine Protein Urine Glucose (UA) Urine Ketones Urine Blood Urine Nitrite Urine Bilirubin Urine Urobilinogen Ur Leukocyte Esterase RPR Titer Nonreactive 06/18/18 06/19/18 10:30 07:00 WBC RBC Hgb Hct MCV MCH MCHC RDW Plt Count MPV Sodium Potassium Chloride Carbon Dioxide Anion Gap BUN Creatinine Creat Clearance w eGFR Random Glucose Calcium Total Bilirubin AST 76 H ALT Alkaline Phosphatase Total Protein Albumin Urine Color Dkyellow Urine Appearance Clear Urine pH 6.0 Ur Specific [place] 1.026 Urine Protein Negative Urine Glucose (UA) Negative Urine Ketones Negative Urine Blood Negative Urine Nitrite Negative Urine Bilirubin Negative Urine Urobilinogen 4.0 e.u/dl Ur Leukocyte Esterase Negative RPR Titer PE: ALERT AND ORIENTED X 3 IRRITABLE SKIN WARM AND DRY CAR S1S2 RESP CTA BL EXT NO EDEMA, FULL ROM A/P: WITHDRAWAL SYNDROME CONTINUE DETOX ENCOURAGE ORAL FLUIDS CONTINUE TO MONITOR CLINICALLY
[2018-06-20] MEDS: chlordiazePOXIDE HCL 10 MG CAPSULE PO SCH ×2 (18:35→23:00)
[2018-06-20] MEDS: CYCLOBENZAPRINE HCL 5 MG TABLET PO PRN (23:01)
[2018-06-20] MEDS: THIAMINE HCL 100 MG TABLET (FP) PO SCH (23:01)
[2018-06-20] MEDS: QUEtiapine FUMARATE 100 MG TABLET (FP) PO SCH (23:03)
[2018-06-21] MEDS ORDERED: METHADONE HCL 5 MG TABLET (FOR DETOX USE ONLY) PO SCH (06:00)
[2018-06-21] MEDS: chlordiazePOXIDE HCL 10 MG CAPSULE PO SCH (06:14)
--- NOTE | 2018-06-21 09:04 | DS ---
[facility] Detox Discharge Summary Admission Date: 06/17/18 Discharge Date: 06/21/18 - History Present History: Alcohol Dependence, Cocaine Dependence, MMTP Additional Comments: Patient medically stable. Patient to follow up with [facility] provider and referrals to after care. - Physical Exam Results Vital Signs: Vital Signs Temperature 97.7 F 06/21/18 06:52 Pulse Rate 67 06/21/18 06:52 Respiratory Rate 18 06/21/18 06:52 Blood Pressure 185/95 H 06/21/18 06:52 O2 Sat by Pulse Oximetry (%) - Treatment Hospital Course: Detox Protocol Followed, Detoxed Safely, Responded well, Discharged Condition Good, Rehab Referral Accepted Patient has Accepted a Rehab Referral to: [facility] - Medication Discharge Medications: Ambulatory Orders Quetiapine Fumarate [Seroquel] 100 mg PO HS #30 tablet 06/18/18 Amlodipine Besylate [Norvasc -] 5 mg PO DAILY #30 tablet 06/21/18 - Diagnosis (1) Alcohol dependence with uncomplicated withdrawal Status: Acute (2) Cocaine dependence Status: Acute (3) Essential hypertension Status: Acute (4) Nicotine dependence Status: Acute (5) Weight loss Status: Acute (6) Hypertension Status: Chronic Qualifiers: Hypertension type: unspecified secondary hypertension Qualified Code(s): I15.9 - Secondary hypertension, unspecified (7) Methadone maintenance therapy patient Status: Chronic (8) Nicotine dependence Status: Chronic Qualifiers: Nicotine product type: cigarettes Substance use status: uncomplicated Qualified Code(s): F17.210 - Nicotine dependence, cigarettes, uncomplicated - AMA Did Patient Leave Against Medical Advice: No
[2018-06-21] MEDS ORDERED: METHADONE HCL 10 MG TABLET (FOR DETOX USE ONLY) PO SCH (10:00)
[2018-06-21 10:20] VITALS: BP 136/83; PULSE 78; TEMP 99.5
[2018-06-22] MEDS ORDERED: METHADONE HCL 5 MG TABLET (FOR DETOX USE ONLY) PO SCH (06:00)
== END 2018-06-21 09:21 | disposition home or self-care (01) | DRG 773 ==
LOC: YASAS 09:18 → Y6N 11:45
PROC: HZ2ZZZZ Detoxification Services for Substance Abuse Treatment (ICD-10-PCS; principal; 2018-06-17)
DX: F10.230 Alcohol dependence with withdrawal, uncomplicated (principal); F14.20 Cocaine dependence, uncomplicated; F11.20 Opioid dependence, uncomplicated; F17.210 Nicotine dependence, cigarettes, uncomplicated; F19.282 Other psychoactive substance dependence with psychoactive substance-induced sleep disorder; F31.9 Bipolar disorder, unspecified; I10 Essential (primary) hypertension; R63.4 Abnormal weight loss; Z68.21 Body mass index [BMI] 21.0-21.9, adult; Z88.6 Allergy status to analgesic agent
CPT/HCPCS: 36415; 80053; 81003; 84450; 85027; 86593; 90688; 93005; 93010; J0735

== ENCOUNTER 2018-11-15 12:47 | Inpatient (IN) | payer OTHER ==
[2018-11-15 15:44] VITALS: BMI 24.4
--- NOTE | 2018-11-15 18:20 | HP ---
COWS - Scale Resting Pulse: 1= [place] 81-100 Sweatin= Chills/Flushing Restless Observation: 0= Sits Still Pupil Size: 0= Normal to Room Light Bone or Joint Aches: 4=Acute Joint/Muscle Pain Runny Nose/ Eye Tearin= Runny Nose/Eyes GI Upset > 30mins: 2= Nausea/Diarrhea Tremor Observation: 0= None Yawning Observation: 1= 1-2x During Session Anxiety or Irritability: 2=Irritable/Anxious Goose Flesh Skin: 0=Smooth Skin COWS Score: 13 CIWA Score Nausea/Vomitin Muscle Tremors: None Anxiety: 4-Mod. Anxious/Guarded Agitation: 0-Normal Activity Paroxysmal Sweats: 2 Orientation: 0-Oriented Tacttile Disturbances: 2-Mild Itch/Numbness/Burn Auditory Disturbances: 0-None Visual Disturbances: 0-None Headache: 0-None Present CIWA-Ar Total Score: 10 - Admission Criteria OASAS Guidelines: Admission for Medically Managed Detox: Requires at least one of the followin. CIWA greater than 12 2. Seizures within the past 24 hours 3. Delirium tremens within the past 24 hours 4. Hallucinations within the past 24 hours 5. Acute intervention needed for co occurring medical disorder 6. Acute intervention needed for co occurring psychiatric disorder 7. Severe withdrawal that cannot be handled at a lower level of care (continued vomiting, continued diarrhea, abnormal vital signs) requiring intravenous medication and/or fluids 8. Admission ROS [facility] Allergies/Adverse Reactions: Allergies Allergy/AdvReac Type Severity Reaction Status Date / Time acetaminophen [From Tylenol] Allergy Rash Verified 04/30/18 14:21 ibuprofen Allergy Rash Verified 06/17/18 10:50 History of Present Illness: pt here requesting detox from etoh use , reports 1/2 pint/day since 6 years ago after of , reports tremors if not drinking , irritability , starts drinking in the mornings , denies seizures, blackouts , + falls while intoxicated, denies injuries to self , latest use today . heroin : 10 bags/day via inhalation since age 25 , OD x 3 , most recently does not recall when , latest use yesterday , curent symptoms as above . cocaine : 1/2 gr via inhalation denies MMTP currently , in the past 6 mo ago was in [facility] 40 mg x 6 years , left program " I wanted to be off " , continued use during [facility]MTP . benzo : reports sporadic past use of xanax . Reference #: [id number] Others' Prescriptions Patient Name: Hamlet Sr Date: 1965 Address: [place] [id number] Sex: Male Rx Written Rx Dispensed Drug Quantity Days Supply Prescriber Name 09/05/2018 09/05/2018 suboxone 8 mg-2 mg sl film 7 7 Pao Aguirre NP PMHX : denies PSHx : denies Psych : denies meds ; denies Exam Limitations: Clinical Condition, Intoxication - Ebola screening Have you traveled outside of the country in the last 21 days: No (N) Have you had contact with anyone from an Ebola affected area: No Have you been sick,other than usual withdrawal symptoms: No Do you have a fever: No - Review of Systems Constitutional: See HPI EENT: reports: See HPI Respiratory: reports: No Symptoms reported Cardiac: reports: No Symptoms Reported GI: reports: See HPI : reports: No Symptoms Reported Musculoskeletal: reports: No Symptoms Reported Integumentary: reports: No Symptoms Reported Neuro: reports: See HPI Endocrine: reports: No Symptoms Reported Psychiatric: reports: Orientated x3, Anxious Patient History - Patient Medical History Hx Anemia: No Hx Asthma: No Hx Chronic Obstructive Pulmonary Disease (COPD): No Hx Cancer: No Hx Cardiac Disorders: No Hx Congestive Heart Failure: No Hx Hypertension: Yes (no medications) Hx Hypercholesterolemia: No Hx Pacemaker: No HX Cerebrovascular Accident: No Hx Seizures: No Hx Dementia: No Hx Diabetes: No Hx Gastrointestinal Disorders: No Hx Liver Disease: No Hx Genitourinary Disorders: No Hx Sexually Transmitted Disorders: No Hx Renal Disease (ESRD): No Hx Thyroid Disease: No Hx Human Immunodeficiency Virus (HIV): No (last 04/26 negative) Hx Hepatitis C: No Hx Depression: No Hx Suicide Attempt: No Hx Bipolar Disorder: Yes Hx Schizophrenia: No - Patient Surgical History Past Surgical History: No Hx Neurologic Surgery: No Hx Cataract Extraction: No Hx Cardiac Surgery: No Hx Lung Surgery: No Hx Breast Surgery: No Hx Breast Biopsy: No Hx Abdominal Surgery: No Hx Appendectomy: No Hx Cholecystectomy: No Hx Genitourinary Surgery: No Hx Section: No Hx Orthopedic Surgery: No Anesthesia Reaction: No - PPD History Date: 06/19/18 Results: not read - Smoking Cessation Smoking history: Current every day smoker Have you smoked in the past 12 months: Yes Aproximately how many cigarettes per day: 10 Cigars Per Day: 0 Hx Chewing Tobacco Use: No Initiated information on smoking cessation: No Family Disease History - Family Disease History Family Disease History: Heart Disease: Brother ( HEART ATTACK), CA: Father ( THROAT), Mother ( ) Admission Physical Exam S - Vital Signs Vital Signs: Vital Signs - 24 hr 11/15/18 15:41 Temperature 96.2 F L Pulse Rate 95 H Respiratory 20 Rate Blood Pressure 134/80 - Physical General Appearance: Yes: Disheveled, Moderate Distress, Intoxicated, Anxious HEENTM: Yes: EOMI, Hearing grossly Normal, Normocephalic, Nasal Congestion, Rhinorrhea, Muffled/Hoarse Voice Respiratory: Yes: Chest Non-Tender, Lungs Clear, Normal Breath Sounds Neck: Yes: No masses,lesions,Nodules, Trachea in good position Cardiology: Yes: Regular Rhythm, Regular Rate, S1, S2, Tachycardia Abdominal: Yes: Normal Bowel Sounds, Non Tender, Soft Back: Yes: Normal Inspection Musculoskeletal: Yes: full range of Motion, Other (staggering gait) Extremities: Yes: Non-Tender, Pedal Edema Neurological: Yes: Motor Strength 5/5, Other (drowsy , falls asleep frequently during interview , awakened by verbal stimuli) Integumentary: Yes: Normal Color, Warm - Diagnostic (1) Alcohol dependence with uncomplicated withdrawal Current Visit: Yes Status: Acute (2) Cocaine dependence Current Visit: Yes Status: Chronic Qualifiers: Substance use status: uncomplicated Qualified Code(s): F14.20 - Cocaine dependence, uncomplicated (3) Nicotine dependence Current Visit: Yes Status: Chronic Qualifiers: Nicotine product type: cigarettes (4) Opioid dependence with withdrawal Current Visit: Yes Status: Acute BHS Breath Alcohol Content Breath Alcohol Content: 0.036 Urine Drug Screen - Results Drug Screen Negative: No Urine Drug Screen Results: CHRISTOPHER-Cocaine, OPI-Opiates, MET-Methamphetamine, BZO- Benzodiazepines, MTD-Methadone, FEN-Fentanyl Inpatient Rehab Admission - Rehab Decision to Admit Inpatient rehab admission?: No
[2018-11-15] MEDS ORDERED: hydrOXYzine PAMOATE 25 MG CAPSULE (FP) PO PRN (18:34)
[2018-11-15] MEDS ORDERED: MAGNESIUM HYDROX 2400MG/30ML ORAL SUSPENSION 30 ML CUP PO PRN (18:34)
[2018-11-15] MEDS ORDERED: NICOTINE POLACRILEX 2 MG GUM BUC PRN (18:34)
[2018-11-15] MEDS ORDERED: METHOCARBAMOL 500 MG TABLET PO PRN (18:34)
[2018-11-15] MEDS ORDERED: DICYCLOMINE HCL 10 MG CAPSULE PO PRN (18:34)
[2018-11-15] MEDS ORDERED: MAGNESIUM CITRATE 300 ML BOTTLE PO PRN (18:34)
[2018-11-15] MEDS ORDERED: chlordiazePOXIDE HCL 10 MG CAPSULE PO PRN (18:34)
[2018-11-15] MEDS ORDERED: cloNIDine HCL 0.1 MG TABLET PO PRN (18:34)
[2018-11-15] MEDS ORDERED: MAG HYDROX/AL HYDROX/SIMETH 30 ML UNIT-DOSE CUP PO PRN (18:34)
[2018-11-15] MEDS ORDERED: MENTHOL/PHENOL 1 EACH UD MM PRN (18:34)
[2018-11-15] MEDS ORDERED: MELATONIN 5 MG TABLETS PO PRN (18:34)
[2018-11-15] MEDS: THIAMINE HCL 100 MG TABLET (FP) PO SCH (22:06)
[2018-11-15] MEDS: chlordiazePOXIDE HCL 25 MG CAPSULE PO SCH (22:07)
[2018-11-15] MEDS ORDERED: METHADONE HCL 10 MG TABLET (FOR DETOX USE ONLY) PO ONE (23:00)
[2018-11-16] MEDS: chlordiazePOXIDE HCL 25 MG CAPSULE PO SCH ×2 (05:55→13:30)
[2018-11-16] MEDS ORDERED: METHADONE HCL 5 MG TABLET (FOR DETOX USE ONLY) PO ONE (10:00)
[2018-11-16] MEDS: PRENATAL VITAMINS W/ FOLIC ACID TABLET (FP) PO SCH (10:56)
[2018-11-16 10:58] LABS: ALBUMIN 2.6 g/dl (3.4-5.0); ALK PHOS 134 U/L (45-117); ANION GAP 6 MMOL/L (8-16); BILIRUBIN,TOTAL 0.4 mg/dL (0.2-1); BLOOD UREA NITROGEN 10 mg/dL (7-18); CHLORIDE 104 mmol/L (98-107); CO2 28 mmol/L (21-32); CREATININE 0.9 mg/dL (0.55-1.3); GLUCOSE,RANDOM 131 mg/dL (74-106); POTASSIUM 3.9 mmol/L (3.5-5.1); SGOT/AST 57 U/L (15-37); SGPT/ALT 44 U/L (13-61); SODIUM 138 mmol/L (136-145); TOT PROT 6.8 g/dl (6.4-8.2)
[2018-11-16 11:30] LABS: HEMATOCRIT 35.8 % (35.4-49); HEMOGLOBIN 11.9 GM/dL (11.7-16.9); MCH 33.2 pg (25.7-33.7); MCHC 33.1 g/dl (32.0-35.9); MEAN CELL VOLUME 100.3 fl (80-96); MEAN PLT VOLUME 7.9 fl (7.5-11.1); PLATELET COUNT 183 K/MM3 (134-434); RBC 3.57 M/mm3 (4.00-5.60); RDW 13.7 % (11.9-15.9); WHITE BLOOD COUNT 4.3 K/mm3 (4.0-10.0)
--- NOTE | 2018-11-16 16:08 | PN ---
[facility] CIWA - CIWA Score Nausea/Vomitin Muscle Tremors: 4-Moderate,w/Arms Extend Anxiety: 4-Mod. Anxious/Guarded Agitation: 4-Moderately Restless Paroxysmal Sweats: 3 Orientation: 0-Oriented Tacttile Disturbances: 0-None Auditory Disturbances: 0-None Visual Disturbances: 0-None Headache: 0-None Present CIWA-Ar Total Score: 17 B[facility] COWS - Scale Resting Pulse: 0= [place] 80 or Below Sweatin= Chills/Flushing Restless Observation: 3= Extraneous Movement Pupil Size: 0= Normal to Room Light Bone or Joint Aches: 2= Severe Diffuse Aches Runny Nose/ Eye Tearin= Runny Nose/Eyes GI Upset > 30mins: 3= Vomiting/Diarrhea Tremor Observation of Outstretched Hands: 2= Slight Tremor Visible Yawning Observation: 0= None Anxiety or Irritability: 2=Irritable/Anxious Goose Flesh Skin: 0=Smooth Skin COWS Score: 15 S Progress Note (SOAP) Subjective: Back pain, stomachache, sweating, chills, tremor, interrupted sleep Objective: 11/16/18 16:05 Last Vital Signs Temp Pulse Resp BP Pulse Ox 97.9 F 73 18 176/99 H 11/16/18 14:10 11/16/18 14:10 11/16/18 14:10 11/16/18 14:10 Elevated b/p 176/99 (h/o htn, nc with med, on clonidine prn) Laboratory Tests 11/16/18 11/16/18 08:00 08:00 WBC 4.3 RBC 3.57 L Hgb 11.9 Hct 35.8 MCV 100.3 H MCH 33.2 MCHC 33.1 RDW 13.7 Plt Count 183 D MPV 7.9 Sodium 138 Potassium 3.9 Chloride 104 Carbon Dioxide 28 Anion Gap 6 L BUN 10 Creatinine 0.9 Creat Clearance w eGFR > 60 Random Glucose 131 H Calcium 8.0 L Total Bilirubin 0.4 AST 57 H ALT 44 Alkaline Phosphatase 134 H Total Protein 6.8 Albumin 2.6 L Labs reviewed: serum glucose 131, Ca 8 Assessment: 11/16/18 16:10 Withdrawal symptoms Noted with uncontrolled HTN, hyperglycemia and hypocalcemia Plan: Continue detox Encouraged PO water hydration Uncontrolled HTN: encouraged low Na diet, continue clonidine prn, start norvasc 5mg PO daily, first dose today Hyperglycemia: repeat fasting glucose Hypocalcemia: start calcium carbonate 650mg PO bid x 3 days, repeat serum calcium on Saturday
[2018-11-16] MEDS ORDERED: amLODIPine BESYLATE 5 MG TABLET (FP) PO ONE (16:09)
[2018-11-16] MEDS: chlordiazePOXIDE 5 MG CAPSULE PO SCH (22:53)
[2018-11-16] MEDS: CALCIUM CARBONATE 650 MG TABLET PO SCH (22:54)
[2018-11-16] MEDS: THIAMINE HCL 100 MG TABLET (FP) PO SCH (22:54)
[2018-11-17] MEDS: chlordiazePOXIDE 5 MG CAPSULE PO SCH ×2 (05:36→13:30)
--- NOTE | 2018-11-17 07:21 | PN ---
B[facility] Progress Note Note: Patient's blood pressure is B/P 158/105. Patoient is asymptomatic. Vital Signs Temperature 98.1 F 11/17/18 06:00 Pulse Rate 76 11/17/18 07:05 Respiratory Rate 18 11/17/18 07:05 Blood Pressure 158/105 H 11/17/18 07:05 O2 Sat by Pulse Oximetry (%) Action: Clonidine 0.1mg tablet oral ordered
[2018-11-17] MEDS ORDERED: cloNIDine HCL 0.1 MG TABLET PO ONE (08:00)
[2018-11-17] MEDS ORDERED: amLODIPine BESYLATE 5 MG TABLET (FP) PO SCH (10:00)
[2018-11-17] MEDS ORDERED: METHADONE HCL 10 MG TABLET (FOR DETOX USE ONLY) PO ONE (10:00)
[2018-11-17] MEDS: PRENATAL VITAMINS W/ FOLIC ACID TABLET (FP) PO SCH (10:54)
[2018-11-17] MEDS: CALCIUM CARBONATE 650 MG TABLET PO SCH ×2 (10:54→22:13)
--- NOTE | 2018-11-17 12:39 | PN ---
[facility] CIWA - CIWA Score Nausea/Vomitin-No Nausea/No Vomiting Muscle Tremors: 3 Anxiety: 1-Mildly Anxious Agitation: 0-Normal Activity Paroxysmal Sweats: 3 Orientation: 0-Oriented Tacttile Disturbances: 2-Mild Itch/Numbness/Burn Auditory Disturbances: 0-None Visual Disturbances: 2-Mild Sensitivity Headache: 0-None Present CIWA-Ar Total Score: 11 S COWS - Scale Resting Pulse: 1= [place] 81-100 Sweatin= Chills/Flushing Restless Observation: 1= Difficult to Sit Still Pupil Size: 0= Normal to Room Light Bone or Joint Aches: 2= Severe Diffuse Aches Runny Nose/ Eye Tearin= None GI Upset > 30mins: 1= Stomach Cramp Tremor Observation of Outstretched Hands: 2= Slight Tremor Visible Yawning Observation: 1= 1-2x During Session Anxiety or Irritability: 2=Irritable/Anxious Goose Flesh Skin: 0=Smooth Skin COWS Score: 11 S Progress Note (SOAP) Subjective: Body Aches, Sweating, Stomach Cramping, Tremors. Objective: PATIENT A & O X 3, OBSERVED AMBULATING ON UNIT. IN NO ACUTE DISTRESS. 11/17/18 12:40 Vital Signs Temperature 99 F 11/17/18 09:32 Pulse Rate 85 11/17/18 09:32 Respiratory Rate 18 11/17/18 09:32 Blood Pressure 154/96 11/17/18 09:32 O2 Sat by Pulse Oximetry (%) Laboratory Tests 11/16/18 11/16/18 11/16/18 08:00 08:00 08:00 WBC 4.3 RBC 3.57 L Hgb 11.9 Hct 35.8 MCV 100.3 H MCH 33.2 MCHC 33.1 RDW 13.7 Plt Count 183 D MPV 7.9 Sodium 138 Potassium 3.9 Chloride 104 Carbon Dioxide 28 Anion Gap 6 L BUN 10 Creatinine 0.9 Creat Clearance w eGFR > 60 Random Glucose 131 H Calcium 8.0 L Total Bilirubin 0.4 AST 57 H ALT 44 Alkaline Phosphatase 134 H Total Protein 6.8 Albumin 2.6 L RPR Titer Nonreactive LABS NOTED. Assessment: 11/17/18 12:40 WITHDRAWAL SYMPTOMS. HYPERTENSION. HYPOCALCEMIA. ELAVATED LIVER ENZYMES. HYPERGLYCEMIA. 11/17/18 12:42 Plan: CONTINUE DETOX. CONTINUE TO MONITOR BP. CONTINUE OSCAL SUPPLEMENT. REPEAT CALCIUM LEVEL PREVIOUSLY ORDERED FOR TOMORROW AM FOR LOW ADMISSION LEVEL. FASTING GLUCOSE LEVEL PREVIOUSLY ORDERED FOR TOMORROW AM FOR ELEVATED ADMISSION RANDOM GLUCOSE LEVEL.
[2018-11-17] MEDS ORDERED: amLODIPine BESYLATE 5 MG TABLET (FP) PO ONE (15:27)
--- NOTE | 2018-11-17 15:29 | PN ---
[facility] Progress Note Note: BP noted to be Elevated during Afternoon VS Assessment. Daily Dose of Amlodipine increased to 10 mg PO Daily. Keila Morris PROJECT HIRE
[2018-11-17] MEDS ORDERED: chlordiazePOXIDE HCL 10 MG CAPSULE PO PRN (21:00)
[2018-11-17] MEDS: THIAMINE HCL 100 MG TABLET (FP) PO SCH (22:13)
[2018-11-17] MEDS: chlordiazePOXIDE HCL 10 MG CAPSULE PO SCH (22:14)
[2018-11-18] MEDS ORDERED: METHADONE HCL 5 MG TABLET (FOR DETOX USE ONLY) PO ONE (06:00)
[2018-11-18] MEDS: chlordiazePOXIDE HCL 10 MG CAPSULE PO SCH (06:26)
[2018-11-18 07:14] VITALS: BP 183/104; PULSE 70; TEMP 98.2
[2018-11-18] MEDS ORDERED: cloNIDine HCL 0.1 MG TABLET PO ONE (07:54)
--- NOTE | 2018-11-18 07:57 | PN ---
S Progress Note Note: Patient's blood pressure this morning is B/P 183/104 . Patient is asymptomatic Vital Signs Temperature 98.2 F 11/18/18 07:14 Pulse Rate 70 11/18/18 07:14 Respiratory Rate 18 11/18/18 07:14 Blood Pressure 183/104 H 11/18/18 07:14 O2 Sat by Pulse Oximetry (%) Action: Clonidine 0.1mg 1 tablet oral ordered
--- NOTE | 2018-11-18 09:00 | PN ---
S Progress Note Note: pt is refusing to take all his medication (HTN, detox medication) pt was told that his BP is high last BP 170/100. pt insist that he will take his norvasc when he gets home. Pt insists that he needs to go. Pt signed out AMA. pt agreed with the decision.
--- NOTE | 2018-11-18 09:03 | DS ---
[facility] Detox Discharge Summary Admission Date: 11/15/18 Discharge Date: 11/18/18 - History Present History: Alcohol Dependence, Cocaine Dependence, Opioid Dependence - Physical Exam Results Vital Signs: Vital Signs Temperature 98.2 F 11/18/18 07:14 Pulse Rate 70 11/18/18 07:14 Respiratory Rate 18 11/18/18 07:14 Blood Pressure 183/104 H 11/18/18 07:14 O2 Sat by Pulse Oximetry (%) - Treatment Hospital Course: Detox Protocol Followed, Detoxed Safely, Responded well, Discharged Condition Good, Rehab Referral Accepted - Medication Discharge Medications: Ambulatory Orders NK [No Known Home Medication] 11/15/18 - Diagnosis (1) Alcohol dependence with uncomplicated withdrawal Current Visit: Yes Status: Chronic (2) Opioid dependence with withdrawal Current Visit: Yes Status: Acute (3) Cocaine dependence Current Visit: Yes Status: Chronic Qualifiers: Substance use status: uncomplicated Qualified Code(s): F14.20 - Cocaine dependence, uncomplicated (4) Nicotine dependence Current Visit: Yes Status: Chronic Qualifiers: Nicotine product type: cigarettes Substance use status: uncomplicated Qualified Code(s): F17.210 - Nicotine dependence, cigarettes, uncomplicated (5) Essential hypertension Current Visit: Yes Status: Chronic (6) Opioid dependence on agonist therapy Current Visit: No Status: Acute (7) Substance-induced sleep disorder Current Visit: No Status: Acute (8) Weight loss Current Visit: No Status: Acute (9) Cocaine dependence with withdrawal Current Visit: Yes Status: Chronic (10) Hypertension Current Visit: Yes Status: Chronic Qualifiers: Hypertension type: unspecified secondary hypertension Qualified Code(s): I15.9 - Secondary hypertension, unspecified - AMA Did Patient Leave Against Medical Advice: Yes (going home)
[2018-11-18] MEDS ORDERED: amLODIPine BESYLATE 10 MG TABLET (FP) PO SCH (10:00)
== END 2018-11-18 09:17 | disposition left against medical advice (07) | DRG 770 ==
LOC: YASAS 12:47 → Y6N 20:31
PROVIDERS: ADMIT Surgery; ATTEND Surgery
PROC: HZ2ZZZZ Detoxification Services for Substance Abuse Treatment (ICD-10-PCS; principal; 2018-11-15)
DX: F11.23 Opioid dependence with withdrawal (principal); F10.230 Alcohol dependence with withdrawal, uncomplicated; F14.20 Cocaine dependence, uncomplicated; F17.210 Nicotine dependence, cigarettes, uncomplicated; F19.282 Other psychoactive substance dependence with psychoactive substance-induced sleep disorder; F31.9 Bipolar disorder, unspecified; I10 Essential (primary) hypertension; E83.51 Hypocalcemia; R74.8 Abnormal levels of other serum enzymes; R73.9 Hyperglycemia, unspecified; R63.4 Abnormal weight loss; Z68.24 Body mass index [BMI] 24.0-24.9, adult
CPT/HCPCS: 36415; 80053; 85027; 86593; J0735

== ENCOUNTER 2019-03-06 16:38 | Inpatient (IN) | payer OTHER ==
[2019-03-06 23:13] VITALS: BMI 22.7
--- NOTE | 2019-03-07 01:09 | HP ---
COWS - Scale Resting Pulse: 0= [place] 80 or Below Sweatin=Flushed/Facial Moisture Restless Observation: 0= Sits Still Pupil Size: 0= Normal to Room Light Bone or Joint Aches: 4=Acute Joint/Muscle Pain Runny Nose/ Eye Tearin= None GI Upset > 30mins: 0= None Tremor Observation: 0= None Yawning Observation: 2= >3x During Session Anxiety or Irritability: 2=Irritable/Anxious Goose Flesh Skin: 0=Smooth Skin COWS Score: 10 CIWA Score Nausea/Vomitin-No Nausea/No Vomiting Muscle Tremors: None Anxiety: 3 Agitation: 4-Moderately Restless Paroxysmal Sweats: No Perspiration Orientation: 2-Disoriented Date<2 days Tacttile Disturbances: 0-None Auditory Disturbances: 0-None Visual Disturbances: 0-None Headache: 3-Moderate CIWA-Ar Total Score: 12 - Admission Criteria OASAS Guidelines: Admission for Medically Managed Detox: Requires at least one of the followin. CIWA greater than 12 2. Seizures within the past 24 hours 3. Delirium tremens within the past 24 hours 4. Hallucinations within the past 24 hours 5. Acute intervention needed for co occurring medical disorder 6. Acute intervention needed for co occurring psychiatric disorder 7. Severe withdrawal that cannot be handled at a lower level of care (continued vomiting, continued diarrhea, abnormal vital signs) requiring intravenous medication and/or fluids 8. Patient presents the following: CIWA greater than 12 Admission Criteria Met: Admission criteria met Admission ROS [facility] Chief Complaint: c/o worsening withdrawal sx's Allergies/Adverse Reactions: Allergies Allergy/AdvReac Type Severity Reaction Status Date / Time lorazepam [From Ativan] Allergy Mild Itching Verified 03/06/19 23:02 acetaminophen [From Tylenol] Allergy Rash Verified 03/06/19 23:03 ibuprofen Allergy Rash Verified 03/06/19 23:03 History of Present Illness: 53 y.o. male with opioid and alcohol dependence here for detox. presents with c/ o withdrawal sx's. cows 10/ciwa 12. self referred. last admit 11/2018. reports longest clean time 6 years. denies any significant period of clean time in the past year. denies hx/o drug over, sz d/o, black outs, domiciled, unemployed, denies legals Exam Limitations: No Limitations - Ebola screening Have you traveled outside of the country in the last 21 days: No (N) Have you had contact with anyone from an Ebola affected area: No Do you have a fever: No - Review of Systems Constitutional: Chills, Loss of Appetite, Malaise, Night Sweats, Changes in sleep EENT: reports: No Symptoms Reported Respiratory: reports: No Symptoms reported Cardiac: reports: No Symptoms Reported GI: reports: Diarrhea, Poor Appetite, Poor Fluid Intake : reports: No Symptoms Reported Musculoskeletal: reports: No Symptoms Reported Integumentary: reports: No Symptoms Reported Endocrine: reports: No Symptoms Reported Hematology: reports: No Symptoms Reported Psychiatric: reports: Orientated x3, Agitated (irritable) Other Systems: Reviewed and Negative Patient History - Patient Medical History Hx Anemia: No Hx Asthma: No Hx Chronic Obstructive Pulmonary Disease (COPD): No Hx Cancer: No Hx Cardiac Disorders: No Hx Congestive Heart Failure: No Hx Hypertension: Yes Hx Hypercholesterolemia: No Hx Pacemaker: No HX Cerebrovascular Accident: No Hx Seizures: No Hx Dementia: No Hx Diabetes: No Hx Gastrointestinal Disorders: No Hx Liver Disease: No Hx Genitourinary Disorders: No Hx Sexually Transmitted Disorders: No Hx Renal Disease (ESRD): No Hx Thyroid Disease: No Hx Human Immunodeficiency Virus (HIV): No Hx Hepatitis C: No Hx Depression: No Hx Suicide Attempt: No Hx Bipolar Disorder: Yes Hx Schizophrenia: No - Patient Surgical History Past Surgical History: No Hx Neurologic Surgery: No Hx Cataract Extraction: No Hx Cardiac Surgery: No Hx Lung Surgery: No Hx Breast Surgery: No Hx Breast Biopsy: No Hx Abdominal Surgery: No Hx Appendectomy: No Hx Cholecystectomy: No Hx Genitourinary Surgery: No Hx Section: No Hx Orthopedic Surgery: No Anesthesia Reaction: No - PPD History Previous Implant?: Yes Documented Results: Negative w/o proof Implanted On Prior [facility] Admission?: Yes Date: 06/19/18 Results: 0mm PPD to be Administered?: No - Smoking Cessation Smoking history: Current every day smoker Have you smoked in the past 12 months: Yes Aproximately how many cigarettes per day: 10 Cigars Per Day: 0 Hx Chewing Tobacco Use: No Initiated information on smoking cessation: Yes 'Breaking Loose' booklet given: 03/07/19 - Substance & Tx. History Hx Alcohol Use: Yes Hx Substance Use: Yes Substance Use Type: Alcohol, Cocaine, Heroin Hx Substance Use Treatment: Yes ([facility]) - Substances abused Alcohol Substance route: Oral Frequency: Daily Amount used: 1/2 pint Age of first use: 12 Date of last use: 03/05/19 Heroin Substance route: Inhalation Frequency: Daily Amount used: 8 bags Age of first use: 25 Date of last use: 03/05/19 Cocaine Substance route: Inhalation Frequency: Daily Amount used: 1/2 gm Age of first use: 25 Date of last use: 03/05/19 Family Disease History - Family Disease History Family Disease History: Heart Disease: Brother ( HEART ATTACK), CA: Father ( THROAT), Mother ( ) Admission Physical Exam [facility] - Vital Signs Vital Signs: Vital Signs - 24 hr 03/06/19 22:41 Temperature 97.7 F Pulse Rate 58 L Respiratory 18 Rate Blood Pressure 175/87 H - Physical General Appearance: Yes: Irritable HEENTM: Yes: EOMI, Normocephalic, Normal Voice, VIVIANE, Pharynx Normal Respiratory: Yes: Chest Non-Tender, Lungs Clear, Normal Breath Sounds, No Respiratory Distress, No Accessory Muscle Use Neck: Yes: No masses,lesions,Nodules, Supple, Trachea in good position Breast: Yes: Breast Exam Deferred Cardiology: Yes: Regular Rhythm, Regular Rate, S1, S2 Abdominal: Yes: Normal Bowel Sounds, Non Tender, Flat, Soft Genitourinary: Yes: Within Normal Limits Back: Yes: Normal Inspection Musculoskeletal: Yes: Gait Steady Extremities: Yes: Normal Capillary Refill, Normal Range of Motion, Non-Tender Neurological: Yes: Fully Oriented, Alert, Motor Strength 5/5 Integumentary: Yes: Dry, Warm Lymphatic: Yes: Within Normal Limits - Diagnostic (1) Opioid dependence with withdrawal Current Visit: No Status: Acute (2) Alcohol dependence with uncomplicated withdrawal Current Visit: No Status: Chronic (3) Cocaine dependence Current Visit: No Status: Chronic Qualifiers: Substance use status: uncomplicated Qualified Code(s): F14.20 - Cocaine dependence, uncomplicated (4) Essential hypertension Current Visit: No Status: Chronic (5) Nicotine dependence Current Visit: No Status: Chronic Qualifiers: Nicotine product type: cigarettes Substance use status: uncomplicated Qualified Code(s): F17.210 - Nicotine dependence, cigarettes, uncomplicated Cleared for Admission [facility] - Detox or Rehab [facility] Level of Care: Medically Managed Detox Regimen/Protocol: Methadone/Librium Claeared for Rehab Admission: No Breathalyzer - Breathalyzer Breathalyzer: 0 Urine Drug Screen - Test Device Lot number: [id number] Expiration date: 11/06/20 - Control Is test valid?: Yes - Results Urine drug screen results: CHRISTOPHER-Cocaine, FEN-Fentanyl, MOP-Opiates, MTD-Methadone , BZO-Benzodiazepines Inpatient Rehab Admission - Rehab Decision to Admit Inpatient rehab admission?: No
[2019-03-07] MEDS ORDERED: METHOCARBAMOL 500 MG TABLET PO PRN (01:34)
[2019-03-07] MEDS ORDERED: MAGNESIUM HYDROX 2400MG/30ML ORAL SUSPENSION 30 ML CUP PO PRN (01:34)
[2019-03-07] MEDS ORDERED: MELATONIN 5 MG TABLETS PO PRN (01:34)
[2019-03-07] MEDS ORDERED: guaiFENesin 200 MG/10 ML 10 ML UNIT-DOSE CUPS PO PRN (01:34)
[2019-03-07] MEDS ORDERED: MAG HYDROX/AL HYDROX/SIMETH 30 ML UNIT-DOSE CUP PO PRN (01:34)
[2019-03-07] MEDS ORDERED: MAGNESIUM CITRATE 300 ML BOTTLE PO PRN (01:34)
[2019-03-07] MEDS ORDERED: P-EPHED 60MG/TRIPROLIDI 2.5MG TABLET PO PRN (01:34)
[2019-03-07] MEDS ORDERED: chlordiazePOXIDE HCL 25 MG CAPSULE PO ONE (01:34)
[2019-03-07] MEDS ORDERED: NICOTINE POLACRILEX 2 MG GUM BUC PRN (01:34)
[2019-03-07] MEDS ORDERED: hydrOXYzine PAMOATE 25 MG CAPSULE (FP) PO PRN (01:34)
[2019-03-07] MEDS ORDERED: chlordiazePOXIDE HCL 10 MG CAPSULE PO PRN (01:34)
[2019-03-07] MEDS ORDERED: MENTHOL/PHENOL 1 EACH UD MM PRN (01:34)
[2019-03-07] MEDS ORDERED: ONDANSETRON *ODT* 4 MG TABLET SL PRN (01:34)
[2019-03-07] MEDS ORDERED: DICYCLOMINE HCL 10 MG CAPSULE PO PRN (01:34)
[2019-03-07] MEDS ORDERED: NALOXONE HCL 0.4 MG/ML VIAL IVPUSH PRN (01:34)
[2019-03-07] MEDS ORDERED: METHADONE HCL 10 MG TABLET (FOR DETOX USE ONLY) PO ONE ×3 (01:57→23:00)
[2019-03-07] MEDS: cloNIDine HCL 0.1 MG TABLET PO PRN ×3 (02:01→12:22)
[2019-03-07] MEDS: chlordiazePOXIDE HCL 25 MG CAPSULE PO SCH ×3 (06:07→22:42)
[2019-03-07] MEDS ORDERED: NICOTINE 14 MG/24 HOURS TOPICAL PATCH TD SCH (10:00)
[2019-03-07] MEDS ORDERED: PRENATAL VITAMINS W/ FOLIC ACID TABLET (FP) PO SCH (10:00)
[2019-03-07 10:20] LABS: ALBUMIN 2.8 g/dl (3.4-5.0); BILIRUBIN,TOTAL 0.4 mg/dL (0.2-1); BLOOD UREA NITROGEN 9.3 mg/dL (7-18); CALCIUM 8.1 mg/dL (8.5-10.1); CREATININE 0.9 mg/dL (0.55-1.3); POTASSIUM 3.7 mmol/L (3.5-5.1); TOT PROT 6.9 g/dl (6.4-8.2)
[2019-03-07 10:26] LABS: HEMATOCRIT 37.6 % (35.4-49); HEMOGLOBIN 12.2 GM/dL (11.7-16.9); MCH 32.8 pg (25.7-33.7); MCHC 32.5 g/dl (32.0-35.9); MEAN PLT VOLUME 8.1 fl (7.5-11.1); RBC 3.73 M/mm3 (4.00-5.60); RDW 13.3 % (11.9-15.9); WHITE BLOOD COUNT 4.8 K/mm3 (4.0-10.0)
[2019-03-07 11:18] LABS: PLATELET COUNT 187 K/MM3 (134-434)
--- NOTE | 2019-03-07 11:43 | PN ---
[facility] CIWA - CIWA Score Nausea/Vomitin-No Nausea/No Vomiting Muscle Tremors: 2 Anxiety: 2 Agitation: 1-Slight > Activity Paroxysmal Sweats: 3 Orientation: 0-Oriented Tacttile Disturbances: 0-None Auditory Disturbances: 0-None Visual Disturbances: 0-None Headache: 2-Mild CIWA-Ar Total Score: 10 [facility] COWS - Scale Resting Pulse: 0= [place] 80 or Below Sweatin= Chills/Flushing Restless Observation: 1= Difficult to Sit Still Pupil Size: 0= Normal to Room Light Bone or Joint Aches: 2= Severe Diffuse Aches Runny Nose/ Eye Tearin= None GI Upset > 30mins: 0= None Tremor Observation of Outstretched Hands: 2= Slight Tremor Visible Yawning Observation: 1= 1-2x During Session Anxiety or Irritability: 2=Irritable/Anxious Goose Flesh Skin: 0=Smooth Skin COWS Score: 9 S Progress Note (SOAP) Subjective: c/o sweats, anxiety, headache, and mild shakes. Objective: 03/07/19 11:41 Vital Signs 03/07/19 03/07/19 03/07/19 04:11 06:00 06:56 Temperature 97.7 F Pulse Rate 60 62 60 Respiratory 18 18 18 Rate Blood Pressure 178/98 H 03/07/19 10:58 Temperature 98.1 F Pulse Rate 74 Respiratory 18 Rate Blood Pressure 161/92 Laboratory Last Values WBC 4.8 K/mm3 (4.0-10.0) 03/07/19 07:50 RBC 3.73 M/mm3 (4.00-5.60) L 03/07/19 07:50 Hgb 12.2 GM/dL (11.7-16.9) 03/07/19 07:50 Hct 37.6 % (35.4-49) 03/07/19 07:50 MCV 101.0 fl (80-96) H 03/07/19 07:50 MCH 32.8 pg (25.7-33.7) 03/07/19 07:50 MCHC 32.5 g/dl (32.0-35.9) 03/07/19 07:50 RDW 13.3 % (11.9-15.9) 03/07/19 07:50 Plt Count 187 K/MM3 (134-434) 03/07/19 07:50 MPV 8.1 fl (7.5-11.1) 03/07/19 07:50 Sodium 139 mmol/L (136-145) 03/07/19 07:50 Potassium 3.7 mmol/L (3.5-5.1) 03/07/19 07:50 Chloride 106 mmol/L (98-107) 03/07/19 07:50 Carbon Dioxide 28 mmol/L (21-32) 03/07/19 07:50 Anion Gap 5 MMOL/L (8-16) L 03/07/19 07:50 BUN 9.3 mg/dL (7-18) 03/07/19 07:50 Creatinine 0.9 mg/dL (0.55-1.3) 03/07/19 07:50 Est GFR (CKD-EPI)AfAm 111.83 03/07/19 07:50 Est GFR (CKD-EPI)NonAf 96.49 03/07/19 07:50 Random Glucose 172 mg/dL (74-106) H 03/07/19 07:50 Calcium 8.1 mg/dL (8.5-10.1) L 03/07/19 07:50 Total Bilirubin 0.4 mg/dL (0.2-1) 03/07/19 07:50 AST 58 U/L (15-37) H 03/07/19 07:50 ALT 55 U/L (13-61) 03/07/19 07:50 Alkaline Phosphatase 168 U/L (45-117) H 03/07/19 07:50 Total Protein 6.9 g/dl (6.4-8.2) 03/07/19 07:50 Albumin 2.8 g/dl (3.4-5.0) L 03/07/19 07:50 Labs noted. Assessment: 03/07/19 11:42 AOX3, in no acute distress Full ROM, ambulating in the unit. withdrawal symptoms. Plan: continue detox. increase fluids.
[2019-03-07] MEDS ORDERED: cloNIDine HCL 0.1 MG TABLET PO ONE (15:52)
--- NOTE | 2019-03-07 15:58 | PN ---
[facility] Progress Note Note: I was informed by RN that pt's BP is elevated. Pt denies any headache, sob, chestpain, or n/v at the moment. Vital Signs - 24 hr 03/06/19 03/07/19 03/07/19 22:41 01:50 01:55 Temperature 97.7 F 97.7 F Pulse Rate 58 L 62 60 Respiratory 18 20 18 Rate Blood Pressure 175/87 H 212/115 H 194/106 H 03/07/19 03/07/19 03/07/19 04:11 06:00 06:56 Temperature 97.7 F Pulse Rate 60 62 60 Respiratory 18 18 18 Rate Blood Pressure 178/98 H 03/07/19 10:58 Temperature 98.1 F Pulse Rate 74 Respiratory 18 Rate Blood Pressure 161/92 BP rechecked at 3:20pm is 176/98, HR 75. Clonidine 0.1mg po stat and recheck BP after 1hr.
[2019-03-07] MEDS ORDERED: THIAMINE HCL 100 MG TABLET (FP) PO SCH (22:00)
[2019-03-08] MEDS ORDERED: chlordiazePOXIDE 5 MG CAPSULE PO SCH (05:00)
[2019-03-08 07:05] VITALS: PULSE 47; TEMP 98.6
[2019-03-08 07:18] VITALS: BP 180/84
[2019-03-08] MEDS ORDERED: METHADONE HCL 10 MG TABLET (FOR DETOX USE ONLY) PO ONE (10:00)
--- NOTE | 2019-03-08 12:24 | DS ---
[facility] Detox Discharge Summary Admission Date: 03/07/19 Discharge Date: 03/08/19 - History Present History: Alcohol Dependence, Cocaine Dependence, Opioid Dependence Additional Comments: Patient became irritable, agitated and loud and demanded to be released MISHA. Patient stated he doesn't want to be here and wants his locker opened so that he can leave. Patient refused to speak with staff stating that if his locker not opened then he's going to act out and security will have to come up to the floor. Patient instructed to call 911 if feeling sick or any withdrawal symptoms and to see his PCP within 3 days. Patient left AMA in nad, ambulatory. Pertinent Past History: Alcohol dependence Cocaine dependence Opioid dependence HTN Bipolar disorder Nicotine dependence - Physical Exam Results Vital Signs: Vital Signs Temperature 98.6 F 03/08/19 06:00 Pulse Rate 47 L 03/08/19 07:15 Respiratory Rate 18 03/08/19 07:15 Blood Pressure 180/84 H 03/08/19 07:15 O2 Sat by Pulse Oximetry (%) Has htn, not on medication. Patient refused to have medication for htn, demanded to leave stat. Pertinent Admission Physical Exam Findings: Withdrawal symptoms Laboratory Tests 03/07/19 03/07/19 03/07/19 07:50 07:50 07:50 WBC 4.8 RBC 3.73 L Hgb 12.2 Hct 37.6 MCV 101.0 H MCH 32.8 MCHC 32.5 RDW 13.3 Plt Count 187 MPV 8.1 Sodium 139 Potassium 3.7 Chloride 106 Carbon Dioxide 28 Anion Gap 5 L BUN 9.3 Creatinine 0.9 Est GFR (CKD-EPI)AfAm 111.83 Est GFR (CKD-EPI)NonAf 96.49 Random Glucose 172 H Calcium 8.1 L Total Bilirubin 0.4 AST 58 H ALT 55 Alkaline Phosphatase 168 H Total Protein 6.9 Albumin 2.8 L RPR Titer Nonreactive Labs reviewed: serum glucose 172 (denies dm), elevated alk phos (could be r/t substance use). Instructed to follow up with PCP within 3 days and for abnormal lab results. - Medication Discharge Medications: Ambulatory Orders NK [No Known Home Medication] 11/15/18 - Diagnosis (1) Bipolar disorder Status: Chronic (2) Opioid dependence with withdrawal Status: Acute (3) Alcohol dependence with uncomplicated withdrawal Status: Acute (4) Cocaine dependence with withdrawal Status: Chronic (5) Essential hypertension Status: Chronic (6) Nicotine dependence Status: Chronic Qualifiers: Nicotine product type: cigarettes Substance use status: uncomplicated Qualified Code(s): F17.210 - Nicotine dependence, cigarettes, uncomplicated - AMA Did Patient Leave Against Medical Advice: Yes (Instructed to call 911 MISHA if feeling sick or withdrawal symptoms)
[2019-03-09] MEDS ORDERED: chlordiazePOXIDE HCL 10 MG CAPSULE PO PRN (05:00)
[2019-03-09] MEDS ORDERED: chlordiazePOXIDE HCL 10 MG CAPSULE PO SCH (05:00)
[2019-03-09] MEDS ORDERED: METHADONE HCL 10 MG TABLET (FOR DETOX USE ONLY) PO ONE (10:00)
[2019-03-10] MEDS ORDERED: METHADONE HCL 10 MG TABLET (FOR DETOX USE ONLY) PO ONE (10:00)
[2019-03-11] MEDS ORDERED: METHADONE HCL 5 MG TABLET (FOR DETOX USE ONLY) PO ONE (06:00)
== END 2019-03-08 09:48 | disposition left against medical advice (07) | DRG 770 ==
LOC: YASAS 16:38 → Y6N 03-07 00:05
PROVIDERS: ADMIT Surgery; ATTEND Surgery
PROC: HZ2ZZZZ Detoxification Services for Substance Abuse Treatment (ICD-10-PCS; principal; 2019-03-07)
DX: F11.23 Opioid dependence with withdrawal (principal); F10.230 Alcohol dependence with withdrawal, uncomplicated; F14.23 Cocaine dependence with withdrawal; F17.210 Nicotine dependence, cigarettes, uncomplicated; F31.9 Bipolar disorder, unspecified; I10 Essential (primary) hypertension; Z88.8 Allergy status to other drugs, medicaments and biological substances
CPT/HCPCS: 36415; 80053; 85027; 86593; J0735

== ENCOUNTER 2019-03-29 11:28 | Inpatient (IN) | payer OTHER ==
[2019-03-29 12:27] VITALS: BMI 22.8
[2019-03-29] MEDS ORDERED: MAGNESIUM HYDROX 2400MG/30ML ORAL SUSPENSION 30 ML CUP PO PRN (15:45)
[2019-03-29] MEDS ORDERED: MAGNESIUM CITRATE 300 ML BOTTLE PO PRN (15:45)
[2019-03-29] MEDS ORDERED: METHADONE HCL 10 MG TABLET (FOR DETOX USE ONLY) PO ONE (15:45)
[2019-03-29] MEDS ORDERED: chlordiazePOXIDE HCL 25 MG CAPSULE PO PRN (15:45)
[2019-03-29] MEDS ORDERED: hydrOXYzine PAMOATE 25 MG CAPSULE (FP) PO PRN (15:45)
[2019-03-29] MEDS ORDERED: MELATONIN 5 MG TABLETS PO PRN (15:45)
[2019-03-29] MEDS ORDERED: cloNIDine HCL 0.1 MG TABLET PO PRN (15:45)
[2019-03-29] MEDS ORDERED: BISMUTH SUBSALICYLATE 524 MG/30 ML UD PO PRN (15:45)
[2019-03-29] MEDS ORDERED: MAG HYDROX/AL HYDROX/SIMETH 30 ML UNIT-DOSE CUP PO PRN (15:45)
[2019-03-29] MEDS ORDERED: MENTHOL/PHENOL 1 EACH UD MM PRN (15:45)
--- NOTE | 2019-03-29 15:56 | HP ---
COWS - Scale Resting Pulse: 0= [place] 80 or Below Sweatin= Chills/Flushing Restless Observation: 1= Difficult to Sit Still Pupil Size: 2= Moderately Dilated Bone or Joint Aches: 2= Severe Diffuse Aches Runny Nose/ Eye Tearin= Runny Nose/Eyes GI Upset > 30mins: 2= Nausea/Diarrhea Tremor Observation: 2= Slight Tremor Visible Yawning Observation: 0= None Anxiety or Irritability: 2=Irritable/Anxious Goose Flesh Skin: 0=Smooth Skin COWS Score: 14 CIWA Score Nausea/Vomitin Muscle Tremors: 2 Anxiety: 2 Agitation: 1-Slight > Activity Paroxysmal Sweats: 2 Orientation: 0-Oriented Tacttile Disturbances: 0-None Auditory Disturbances: 2-Mild Harshness/Frighten Visual Disturbances: 2-Mild Sensitivity Headache: 2-Mild CIWA-Ar Total Score: 15 - Admission Criteria OASAS Guidelines: Admission for Medically Managed Detox: Requires at least one of the followin. CIWA greater than 12 2. Seizures within the past 24 hours 3. Delirium tremens within the past 24 hours 4. Hallucinations within the past 24 hours 5. Acute intervention needed for co occurring medical disorder 6. Acute intervention needed for co occurring psychiatric disorder 7. Severe withdrawal that cannot be handled at a lower level of care (continued vomiting, continued diarrhea, abnormal vital signs) requiring intravenous medication and/or fluids 8. Admission ROS [facility] Chief Complaint: GUZMAN WANTS TO "GET CLEAN" Allergies/Adverse Reactions: Allergies Allergy/AdvReac Type Severity Reaction Status Date / Time lorazepam [From Ativan] Allergy Mild Itching Verified 03/29/19 12:17 acetaminophen [From Tylenol] Allergy Rash Verified 03/29/19 12:17 ibuprofen Allergy Rash Verified 03/29/19 12:17 Exam Limitations: No Limitations - Ebola screening Have you traveled outside of the country in the last 21 days: No (N) Have you had contact with anyone from an Ebola affected area: No Do you have a fever: No - Review of Systems Constitutional: Malaise, Changes in sleep EENT: reports: No Symptoms Reported Respiratory: reports: No Symptoms reported Cardiac: reports: No Symptoms Reported GI: reports: No Symptoms Reported : reports: No Symptoms Reported Musculoskeletal: reports: No Symptoms Reported Integumentary: reports: Dryness Neuro: reports: No Symptoms reported Endocrine: reports: No Symptoms Reported Hematology: reports: No Symptoms Reported Psychiatric: reports: Anxious Patient History - Patient Medical History Hx Anemia: No Hx Asthma: No Hx Chronic Obstructive Pulmonary Disease (COPD): No Hx Cancer: No Hx Cardiac Disorders: No Hx Congestive Heart Failure: No Hx Hypertension: Yes Hx Hypercholesterolemia: No Hx Pacemaker: No HX Cerebrovascular Accident: No Hx Seizures: No Hx Dementia: No Hx Diabetes: No Hx Gastrointestinal Disorders: No Hx Liver Disease: No Hx Genitourinary Disorders: No Hx Sexually Transmitted Disorders: No Hx Renal Disease (ESRD): No Hx Thyroid Disease: No Hx Human Immunodeficiency Virus (HIV): No Hx Hepatitis C: No Hx Depression: No Hx Suicide Attempt: No Hx Bipolar Disorder: Yes (OFF MEDS) Hx Schizophrenia: No - Patient Surgical History Past Surgical History: No Hx Neurologic Surgery: No Hx Cataract Extraction: No Hx Cardiac Surgery: No Hx Lung Surgery: No Hx Breast Surgery: No Hx Breast Biopsy: No Hx Abdominal Surgery: No Hx Appendectomy: No Hx Cholecystectomy: No Hx Genitourinary Surgery: No Hx Section: No Hx Orthopedic Surgery: No Anesthesia Reaction: No - PPD History Date: 06/19/18 Results: 0mm - Smoking Cessation Smoking history: Current every day smoker Have you smoked in the past 12 months: Yes Aproximately how many cigarettes per day: 10 Cigars Per Day: 0 Hx Chewing Tobacco Use: No Initiated information on smoking cessation: Yes 'Breaking Loose' booklet given: 03/29/19 - Substances abused Alcohol Substance route: Oral Frequency: Daily Amount used: 1/2 pint Age of first use: 12 Date of last use: 03/28/19 Heroin Substance route: Inhalation Frequency: Daily Amount used: 8 bags Age of first use: 25 Date of last use: 03/28/19 Cocaine Substance route: Inhalation Frequency: Daily Amount used: 1/2 gm Age of first use: 25 Date of last use: 03/28/19 Family Disease History - Family Disease History Family Disease History: Heart Disease: Brother ( HEART ATTACK), CA: Father ( THROAT), Mother ( ) Admission Physical Exam [facility] - Vital Signs Vital Signs: Vital Signs - 24 hr 03/29/19 03/29/19 12:21 14:41 Temperature 98.2 F 98.2 F Pulse Rate 70 70 Respiratory 20 20 Rate Blood Pressure 162/94 162/94 - Physical General Appearance: Yes: Alcohol on Breath, Irritable, Sweating, Anxious HEENTM: Yes: EOMI Respiratory: Yes: Lungs Clear Neck: Yes: Within Normal Limits Breast: Yes: Breast Exam Deferred Cardiology: Yes: Within Normal Limits Abdominal: Yes: Within Normal Limits, Normal Bowel Sounds Genitourinary: Yes: Within Normal Limits Back: Yes: Within Normal Limits Musculoskeletal: Yes: full range of Motion, Gait Steady Extremities: Yes: Within Normal Limits 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, Alert, Motor Strength 5/5, Normal Response Integumentary: Yes: Dry (ANT TIBIAL ICTHYOSIS) - Diagnostic (1) Alcohol dependence with uncomplicated withdrawal Current Visit: Yes Status: Acute (2) Opioid dependence with withdrawal Current Visit: Yes Status: Acute (3) Weight loss Current Visit: No Status: Acute (4) Bipolar disorder Current Visit: No Status: Chronic (5) Cocaine dependence Current Visit: No Status: Chronic Qualifiers: Substance use status: uncomplicated Qualified Code(s): F14.20 - Cocaine dependence, uncomplicated (6) Essential hypertension Current Visit: No Status: Chronic (7) Nicotine dependence Current Visit: No Status: Chronic Qualifiers: Nicotine product type: cigarettes Substance use status: uncomplicated Qualified Code(s): F17.210 - Nicotine dependence, cigarettes, uncomplicated Cleared for Admission [facility] - Detox or Rehab Detox Regimen/Protocol: Methadone/Librium Claeared for Rehab Admission: No Breathalyzer - Breathalyzer Breathalyzer: 0.019 Urine Drug Screen - Test Device Lot number: [id number] Expiration date: 01/06/21 - Control Is test valid?: Yes - Results Urine drug screen results: CHRISTOPHER-Cocaine, FEN-Fentanyl, MOP-Opiates, MTD-Methadone , BZO-Benzodiazepines Inpatient Rehab Admission - Rehab Decision to Admit Inpatient rehab admission?: No
[2019-03-29] MEDS: chlordiazePOXIDE HCL 25 MG CAPSULE PO SCH ×2 (16:59→22:42)
[2019-03-29] MEDS: THIAMINE HCL 100 MG TABLET (FP) PO SCH (22:42)
[2019-03-30] MEDS: chlordiazePOXIDE HCL 25 MG CAPSULE PO SCH ×4 (06:10→22:05)
[2019-03-30] MEDS: PRENATAL VITAMINS W/ FOLIC ACID TABLET (FP) PO SCH (10:22)
[2019-03-30] MEDS: METHADONE HCL 5 MG TABLET (FOR DETOX USE ONLY) PO ONE ×2 (10:22→10:25)
[2019-03-30 12:06] LABS: HEMATOCRIT 35.7 % (35.4-49); HEMOGLOBIN 11.6 GM/dL (11.7-16.9); MCH 32.7 pg (25.7-33.7); MCHC 32.4 g/dl (32.0-35.9); MEAN CELL VOLUME 100.8 fl (80-96); MEAN PLT VOLUME 8.3 fl (7.5-11.1); PLATELET COUNT 151 K/MM3 (134-434); RBC 3.54 M/mm3 (4.00-5.60); RDW 13.4 % (11.9-15.9); WHITE BLOOD COUNT 3.7 K/mm3 (4.0-10.0)
[2019-03-30 12:11] LABS: ALBUMIN 2.8 g/dl (3.4-5.0); BILIRUBIN,TOTAL 0.4 mg/dL (0.2-1); BLOOD UREA NITROGEN 11.6 mg/dL (7-18); CALCIUM 8.1 mg/dL (8.5-10.1); CREATININE 0.8 mg/dL (0.55-1.3); POTASSIUM 3.5 mmol/L (3.5-5.1); TOT PROT 6.6 g/dl (6.4-8.2)
--- NOTE | 2019-03-30 15:15 | PN ---
[facility] CIWA - CIWA Score Nausea/Vomitin-No Nausea/No Vomiting Muscle Tremors: 2 Anxiety: 3 Agitation: 3 Paroxysmal Sweats: 3 Orientation: 0-Oriented Tacttile Disturbances: 2-Mild Itch/Numbness/Burn Auditory Disturbances: 0-None Visual Disturbances: 1-Very Mild Sensitivity Headache: 0-None Present CIWA-Ar Total Score: 14 S COWS - Scale Resting Pulse: 1= [place] 81-100 Sweatin= Chills/Flushing Restless Observation: 1= Difficult to Sit Still Pupil Size: 0= Normal to Room Light Bone or Joint Aches: 2= Severe Diffuse Aches Runny Nose/ Eye Tearin= None GI Upset > 30mins: 0= None Tremor Observation of Outstretched Hands: 0= None Yawning Observation: 1= 1-2x During Session Anxiety or Irritability: 2=Irritable/Anxious Goose Flesh Skin: 3=Piloerection COWS Score: 11 S Progress Note (SOAP) Subjective: Diarrhea, Fatigue, Anxious. Objective: PATIENT A & O X 3, OBSERVED AMBULATING ON UNIT UNASSISTED. IN NO ACUTE DISTRESS. 03/30/19 15:17 Vital Signs Temperature 97.9 F 03/30/19 13:16 Pulse Rate 99 H 03/30/19 13:16 Respiratory Rate 16 03/30/19 13:16 Blood Pressure 133/65 03/30/19 13:16 O2 Sat by Pulse Oximetry (%) Laboratory Tests 03/30/19 03/30/19 07:00 07:00 WBC 3.7 L RBC 3.54 L Hgb 11.6 L Hct 35.7 MCV 100.8 H MCH 32.7 MCHC 32.4 RDW 13.4 Plt Count 151 MPV 8.3 Sodium 140 Potassium 3.5 Chloride 106 Carbon Dioxide 32 Anion Gap 2 L BUN 11.6 Creatinine 0.8 Est GFR (CKD-EPI)AfAm 117.38 Est GFR (CKD-EPI)NonAf 101.27 Random Glucose 112 H Calcium 8.1 L Total Bilirubin 0.4 AST 54 H ALT 42 Alkaline Phosphatase 176 H Total Protein 6.6 Albumin 2.8 L LABS NOTED. RPR RESULT PENDING. 03/30/19 15:18 Assessment: 03/30/19 15:18 WITHDRAWAL SYMPTOMS. ELEVATED AST, ALKALINE PHOSPHATASE LEVELS. LEUKOPENIA. ANEMIA. 03/30/19 15:21 Plan: CONTINUE DETOX. INCREASE DAILY PO WATER INTAKE. PATIENT IS CURRENTLY RECEIVING DAILY MVI CONTAINING B VITAMINS AND IRON WHILE ADMITTED FOR DETOX. PRN PEPTO-BISMOL PO FOR DIARRHEA.
[2019-03-30] MEDS: METHOCARBAMOL 500 MG TABLET PO PRN (22:05)
[2019-03-30] MEDS: THIAMINE HCL 100 MG TABLET (FP) PO SCH (22:05)
[2019-03-31] MEDS ORDERED: chlordiazePOXIDE HCL 10 MG CAPSULE PO PRN
[2019-03-31] MEDS: chlordiazePOXIDE HCL 25 MG CAPSULE PO SCH ×2 (07:47→11:56)
[2019-03-31] MEDS ORDERED: METHADONE HCL 10 MG TABLET (FOR DETOX USE ONLY) PO ONE (10:00)
--- NOTE | 2019-03-31 10:23 | PN ---
S CIWA - CIWA Score Nausea/Vomitin Muscle Tremors: 2 Anxiety: 2 Agitation: 2 Paroxysmal Sweats: 1-Minimal Palms Moist Orientation: 0-Oriented Tacttile Disturbances: 1-Very Mild Itch/Numbness Auditory Disturbances: 1-Very Mild Visual Disturbances: 0-None Headache: 2-Mild CIWA-Ar Total Score: 13 [facility] COWS - Scale Resting Pulse: 0= [place] 80 or Below Sweatin= Chills/Flushing Restless Observation: 1= Difficult to Sit Still Pupil Size: 1= Pupils >than Normal Bone or Joint Aches: 2= Severe Diffuse Aches Runny Nose/ Eye Tearin= Nasal Congestion GI Upset > 30mins: 2= Nausea/Diarrhea Tremor Observation of Outstretched Hands: 2= Slight Tremor Visible Yawning Observation: 1= 1-2x During Session Anxiety or Irritability: 2=Irritable/Anxious Goose Flesh Skin: 0=Smooth Skin COWS Score: 13 [facility] Progress Note (SOAP) Subjective: alert,irritable,anxious,interrupted sleep,tremor,pain in the body and back Objective: 03/31/19 10:20 Vital Signs Temperature 98.1 F 03/31/19 09:44 Pulse Rate 61 03/31/19 09:44 Respiratory Rate 16 03/31/19 09:44 Blood Pressure 150/97 03/31/19 09:44 O2 Sat by Pulse Oximetry (%) 03/31/19 10:21 Laboratory Last Values WBC 3.7 K/mm3 (4.0-10.0) L 03/30/19 07:00 RBC 3.54 M/mm3 (4.00-5.60) L 03/30/19 07:00 Hgb 11.6 GM/dL (11.7-16.9) L 03/30/19 07:00 Hct 35.7 % (35.4-49) 03/30/19 07:00 MCV 100.8 fl (80-96) H 03/30/19 07:00 MCH 32.7 pg (25.7-33.7) 03/30/19 07:00 MCHC 32.4 g/dl (32.0-35.9) 03/30/19 07:00 RDW 13.4 % (11.9-15.9) 03/30/19 07:00 Plt Count 151 K/MM3 (134-434) 03/30/19 07:00 MPV 8.3 fl (7.5-11.1) 03/30/19 07:00 Sodium 140 mmol/L (136-145) 03/30/19 07:00 Potassium 3.5 mmol/L (3.5-5.1) 03/30/19 07:00 Chloride 106 mmol/L (98-107) 03/30/19 07:00 Carbon Dioxide 32 mmol/L (21-32) 03/30/19 07:00 Anion Gap 2 MMOL/L (8-16) L 03/30/19 07:00 BUN 11.6 mg/dL (7-18) 03/30/19 07:00 Creatinine 0.8 mg/dL (0.55-1.3) 03/30/19 07:00 Est GFR (CKD-EPI)AfAm 117.38 03/30/19 07:00 Est GFR (CKD-EPI)NonAf 101.27 03/30/19 07:00 Random Glucose 112 mg/dL (74-106) H 03/30/19 07:00 Calcium 8.1 mg/dL (8.5-10.1) L 03/30/19 07:00 Total Bilirubin 0.4 mg/dL (0.2-1) 03/30/19 07:00 AST 54 U/L (15-37) H 03/30/19 07:00 ALT 42 U/L (13-61) 03/30/19 07:00 Alkaline Phosphatase 176 U/L (45-117) H 03/30/19 07:00 Total Protein 6.6 g/dl (6.4-8.2) 03/30/19 07:00 Albumin 2.8 g/dl (3.4-5.0) L 03/30/19 07:00 RPR Titer Nonreactive (NONREACTIVE) 03/30/19 07:00 Assessment: 03/31/19 10:21 withdrawal symptom Plan: continue detox methadone and librium regimen,clonidine 0.1 mg po bid for opiate withdrawal,initial glucose is 112,fasting glucose in am
[2019-03-31] MEDS: PRENATAL VITAMINS W/ FOLIC ACID TABLET (FP) PO SCH (11:51)
[2019-03-31] MEDS: cloNIDine HCL 0.1 MG TABLET PO SCH ×2 (11:51→22:37)
[2019-03-31] MEDS: chlordiazePOXIDE HCL 10 MG CAPSULE PO SCH ×2 (17:51→22:35)
[2019-03-31] MEDS: THIAMINE HCL 100 MG TABLET (FP) PO SCH (22:34)
[2019-04-01] MEDS ORDERED: LISINOPRIL 20 MG TABLET (FP) PO ONE (00:35)
[2019-04-01] MEDS: METHOCARBAMOL 500 MG TABLET PO PRN (00:36)
[2019-04-01] MEDS ORDERED: chlordiazePOXIDE HCL 10 MG CAPSULE PO SCH (05:00)
[2019-04-01] MEDS ORDERED: METHADONE HCL 5 MG TABLET (FOR DETOX USE ONLY) PO ONE (06:00)
[2019-04-01] MEDS: chlordiazePOXIDE HCL 10 MG CAPSULE PO SCH (06:48)
[2019-04-01] MEDS ORDERED: cloNIDine HCL 0.1 MG TABLET PO ONE (06:48)
[2019-04-01] MEDS ORDERED: amLODIPine BESYLATE 5 MG TABLET (FP) PO ONE (06:50)
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
[2019-04-01 09:17] VITALS: BP 143/88; PULSE 88; TEMP 97.3
[2019-04-01] MEDS ORDERED: amLODIPine BESYLATE 5 MG TABLET (FP) PO SCH (10:00)
--- NOTE | 2019-04-01 11:45 | PN ---
[facility] Progress Note Note: pt was admitted in withdrawals pt c/o of withdrawals symptoms and aggressive symptomatic management attempted however, pt in spite of extensive motivational counseling regarding the risk of relapse, seizures, DT and or loss, pt chose to sign out AMA. Also,pt was encouraged to meet with his PCP to follow up regarding his HTN pt agreed.
--- NOTE | 2019-04-01 11:58 | DS ---
[facility] Detox Discharge Summary Admission Date: 03/29/19 Discharge Date: 04/01/19 - History Present History: Alcohol Dependence - Physical Exam Results Vital Signs: Vital Signs Temperature 97.3 F L 04/01/19 09:16 Pulse Rate 88 04/01/19 09:16 Respiratory Rate 18 04/01/19 09:16 Blood Pressure 143/88 04/01/19 09:16 O2 Sat by Pulse Oximetry (%) Pertinent Admission Physical Exam Findings: pt arrived in withdrawals Laboratory Tests 03/30/19 03/30/19 03/30/19 07:00 07:00 07:00 WBC 3.7 L RBC 3.54 L Hgb 11.6 L Hct 35.7 MCV 100.8 H MCH 32.7 MCHC 32.4 RDW 13.4 Plt Count 151 MPV 8.3 Sodium 140 Potassium 3.5 Chloride 106 Carbon Dioxide 32 Anion Gap 2 L BUN 11.6 Creatinine 0.8 Est GFR (CKD-EPI)AfAm 117.38 Est GFR (CKD-EPI)NonAf 101.27 Random Glucose 112 H Calcium 8.1 L Total Bilirubin 0.4 AST 54 H ALT 42 Alkaline Phosphatase 176 H Total Protein 6.6 Albumin 2.8 L RPR Titer Nonreactive labs noted pt is aaox3 ambulating pt chose to sign out AMA regardless of risks - Treatment Hospital Course: Discharged Condition Good Patient has Accepted a Rehab Referral to: referral provided - Medication Discharge Medications: Ambulatory Orders NK [No Known Home Medication] 11/15/18 - Diagnosis (1) Alcohol dependence with uncomplicated withdrawal Status: Chronic (2) Anemia Status: Acute (3) Elevated alkaline phosphatase level Status: Acute (4) Elevated aspartate aminotransferase level Status: Acute (5) Leukopenia Status: Acute (6) Opioid dependence on agonist therapy Status: Acute (7) Opioid dependence with withdrawal Status: Acute (8) Substance-induced sleep disorder Status: Acute (9) Weight loss Status: Acute (10) Bipolar disorder Status: Chronic (11) Cocaine dependence with withdrawal Status: Chronic (12) Essential hypertension Status: Chronic (13) Hypertension Status: Chronic Qualifiers: Hypertension type: unspecified secondary hypertension Qualified Code(s): I15.9 - Secondary hypertension, unspecified (14) Nicotine dependence Status: Chronic Qualifiers: Nicotine product type: cigarettes Substance use status: uncomplicated Qualified Code(s): F17.210 - Nicotine dependence, cigarettes, uncomplicated - AMA Did Patient Leave Against Medical Advice: Yes
[2019-04-02] MEDS ORDERED: chlordiazePOXIDE HCL 10 MG CAPSULE PO ONE (05:00)
[2019-04-02] MEDS ORDERED: amLODIPine BESYLATE 5 MG TABLET (FP) PO SCH (10:00)
== END 2019-04-01 09:35 | disposition left against medical advice (07) | DRG 770 ==
LOC: YASAS 11:28 → Y6N 16:15
PROVIDERS: ADMIT Surgery; ATTEND Surgery
PROC: HZ2ZZZZ Detoxification Services for Substance Abuse Treatment (ICD-10-PCS; principal; 2019-03-29)
DX: F10.230 Alcohol dependence with withdrawal, uncomplicated (principal); F11.23 Opioid dependence with withdrawal; F14.23 Cocaine dependence with withdrawal; F17.210 Nicotine dependence, cigarettes, uncomplicated; F19.282 Other psychoactive substance dependence with psychoactive substance-induced sleep disorder; F32.9 Major depressive disorder, single episode, unspecified; I10 Essential (primary) hypertension; I15.9 Secondary hypertension, unspecified; D72.819 Decreased white blood cell count, unspecified; R74.8 Abnormal levels of other serum enzymes; R74.0 Nonspecific elevation of levels of transaminase and lactic acid dehydrogenase [LDH]; R63.4 Abnormal weight loss; D64.9 Anemia, unspecified; Z88.8 Allergy status to other drugs, medicaments and biological substances
CPT/HCPCS: 36415; 80053; 85027; 86593; J0735

== ENCOUNTER 2019-05-07 13:24 | Inpatient (IN) | payer OTHER ==
[2019-05-07 15:23] VITALS: BMI 22.7
--- NOTE | 2019-05-07 16:10 | HP ---
COWS - Scale Resting Pulse: 0= [place] 80 or Below Sweatin= Chills/Flushing Restless Observation: 1= Difficult to Sit Still Pupil Size: 1= Pupils >than Normal Bone or Joint Aches: 2= Severe Diffuse Aches Runny Nose/ Eye Tearin= Runny Nose/Eyes GI Upset > 30mins: 2= Nausea/Diarrhea Tremor Observation: 2= Slight Tremor Visible Yawning Observation: 1= 1-2x During Session Anxiety or Irritability: 2=Irritable/Anxious Goose Flesh Skin: 0=Smooth Skin COWS Score: 14 CIWA Score Nausea/Vomitin Muscle Tremors: 3 Anxiety: 2 Agitation: 2 Paroxysmal Sweats: 2 Orientation: 0-Oriented Tacttile Disturbances: 0-None Auditory Disturbances: 0-None Visual Disturbances: 0-None Headache: 2-Mild CIWA-Ar Total Score: 13 - Admission Criteria OASAS Guidelines: Admission for Medically Managed Detox: Requires at least one of the followin. CIWA greater than 12 2. Seizures within the past 24 hours 3. Delirium tremens within the past 24 hours 4. Hallucinations within the past 24 hours 5. Acute intervention needed for co occurring medical disorder 6. Acute intervention needed for co occurring psychiatric disorder 7. Severe withdrawal that cannot be handled at a lower level of care (continued vomiting, continued diarrhea, abnormal vital signs) requiring intravenous medication and/or fluids 8. Admission [facility] Chief Complaint: heroin/alcohol detox Allergies/Adverse Reactions: Allergies Allergy/AdvReac Type Severity Reaction Status Date / Time lorazepam [From Ativan] Allergy Mild Itching Verified 05/07/19 15:20 acetaminophen [From Tylenol] Allergy Rash Verified 05/07/19 15:20 ibuprofen Allergy Rash Verified 05/07/19 15:20 History of Present Illness: Patient is a 53 yo M with a PMhx HTN, presenting here for alcohol/heroin detox. patient uses 8 bags of heroin a day by inhalation. denies IV use. Last use yesterday morning. Has been doing heroin since he was 25. overdosed twice. does not carry a narcan pen. Has been on methadone program years ago. Was recently here but left before completion. Drinks half pint of liquor daily and 2 6 packs of beer for many years. Last drink this morning. Never had seizures, blackouts. Uses half a gram of cocaine occasionally. Smokes half pack of cigarettes a day. Unemployed. Lives in an apartment with friend. Exam Limitations: No Limitations - Ebola screening Have you traveled outside of the country in the last 21 days: No Have you had contact with anyone from an Ebola affected area: No Do you have a fever: No - Review of Systems Constitutional: Loss of Appetite, Unintentional Wgt. Loss Respiratory: denies: Cough, Shortness of Breath Cardiac: denies: Chest Pain GI: reports: Diarrhea, Nausea Patient History - Patient Medical History Hx Anemia: No Hx Asthma: No Hx Chronic Obstructive Pulmonary Disease (COPD): No Hx Cancer: No Hx Cardiac Disorders: No Hx Congestive Heart Failure: No Hx Hypertension: Yes Hx Hypercholesterolemia: No Hx Pacemaker: No HX Cerebrovascular Accident: No Hx Seizures: No Hx Dementia: No Hx Diabetes: No Hx Gastrointestinal Disorders: No Hx Liver Disease: No Hx Genitourinary Disorders: No Hx Sexually Transmitted Disorders: No Hx Renal Disease (ESRD): No Hx Thyroid Disease: No Hx Human Immunodeficiency Virus (HIV): No Hx Hepatitis C: No Hx Depression: No Hx Suicide Attempt: No Hx Bipolar Disorder: Yes (OFF MEDS) Hx Schizophrenia: No - Patient Surgical History Past Surgical History: No Hx Neurologic Surgery: No Hx Cataract Extraction: No Hx Cardiac Surgery: No Hx Lung Surgery: No Hx Breast Surgery: No Hx Breast Biopsy: No Hx Abdominal Surgery: No Hx Appendectomy: No Hx Cholecystectomy: No Hx Genitourinary Surgery: No Hx Section: No Hx Orthopedic Surgery: No Anesthesia Reaction: No - PPD History Date: 06/19/18 Results: 0mm - Smoking Cessation Smoking history: Current every day smoker Have you smoked in the past 12 months: Yes Aproximately how many cigarettes per day: 10 Cigars Per Day: 0 Hx Chewing Tobacco Use: No Initiated information on smoking cessation: Yes 'Breaking Loose' booklet given: 05/07/19 - Substances abused Alcohol Substance route: Oral Frequency: Daily Amount used: 1/2 pint Age of first use: 12 Date of last use: 05/07/19 Heroin Substance route: Inhalation Frequency: Daily Amount used: 8 bags Age of first use: 25 Date of last use: 05/06/19 Cocaine Substance route: Inhalation Frequency: Daily Amount used: 1/2 gm Age of first use: 25 Date of last use: 05/06/19 Family Disease History - Family Disease History Family Disease History: Heart Disease: Brother ( HEART ATTACK), CA: Father ( THROAT), Mother ( ) Admission Physical Exam [facility] - Vital Signs Vital Signs: Vital Signs - 24 hr 05/07/19 05/07/19 15:18 16:01 Temperature 97.0 F L 97.0 F L Pulse Rate 74 74 Respiratory 18 18 Rate Blood Pressure 150/93 150/93 - Physical General Appearance: Yes: Irritable Respiratory: Yes: No Respiratory Distress, No Accessory Muscle Use Neck: Yes: Supple Cardiology: Yes: Regular Rate, S1, S2 Abdominal: Yes: Non Tender, Soft - Diagnostic (1) Opioid dependence with withdrawal Current Visit: No Status: Acute (2) Weight loss Current Visit: No Status: Acute (3) Alcohol dependence with uncomplicated withdrawal Current Visit: No Status: Chronic (4) Cocaine dependence with withdrawal Current Visit: No Status: Chronic (5) Essential hypertension Current Visit: No Status: Chronic Breathalyzer - Breathalyzer Breathalyzer: 0 Urine Drug Screen - Test Device Lot number: [id number] Expiration date: 02/06/21 - Control Is test valid?: Yes - Results Urine drug screen results: CHRISTOPHER-Cocaine, MOP-Opiates, BZO-Benzodiazepines Inpatient Rehab Admission - Rehab Decision to Admit Inpatient rehab admission?: No
--- NOTE | 2019-05-07 16:27 | PN ---
Teaching Attending Note Name of Resident: Dianne Sarkar ATTENDING PHYSICIAN STATEMENT I saw and evaluated the patient. I reviewed the resident's note and discussed the case with the resident. I agree with the resident's findings and plan as documented. SUBJECTIVE: 53 yo with HTN here for alcohol and heroin detox- uses 8 bags of heroin, IH. Twice OD. Was in a methadone-MAT. Recently left AMA from detox b/c of family emergency. Also uses alcohol- several pints/day. Also uses nicotine. OBJECTIVE: Vital Signs - 24 hr 05/07/19 05/07/19 15:18 16:01 Temperature 97.0 F L 97.0 F L Pulse Rate 74 74 Respiratory 18 18 Rate Blood Pressure 150/93 150/93 tremulous dry skin alert and oriented ASSESSMENT AND PLAN: admission for alcohol and heroin detox- per protocol
[2019-05-07] MEDS ORDERED: ACETAMINOPHEN 325 MG TABLET (FP) PO PRN ×2 (16:28)
[2019-05-07] MEDS ORDERED: hydrOXYzine PAMOATE 25 MG CAPSULE (FP) PO PRN (16:28)
[2019-05-07] MEDS ORDERED: BISMUTH SUBSALICYLATE 524 MG/30 ML UD PO PRN (16:28)
[2019-05-07] MEDS ORDERED: MAGNESIUM CITRATE 300 ML BOTTLE PO PRN (16:28)
[2019-05-07] MEDS ORDERED: IBUPROFEN 400 MG TABLET (FP) PO PRN (16:28)
[2019-05-07] MEDS ORDERED: METHOCARBAMOL 500 MG TABLET PO PRN (16:28)
[2019-05-07] MEDS ORDERED: NICOTINE POLACRILEX 2 MG GUM BUC PRN (16:28)
[2019-05-07] MEDS ORDERED: MAG HYDROX/AL HYDROX/SIMETH 30 ML UNIT-DOSE CUP PO PRN (16:28)
[2019-05-07] MEDS ORDERED: MAGNESIUM HYDROX 2400MG/30ML ORAL SUSPENSION 30 ML CUP PO PRN (16:28)
[2019-05-07] MEDS ORDERED: METHADONE HCL 10 MG TABLET (FOR DETOX USE ONLY) PO ONE (17:30)
[2019-05-07] MEDS: chlordiazePOXIDE HCL 25 MG CAPSULE PO SCH ×2 (17:55→22:16)
[2019-05-07] MEDS: NICOTINE 21 MG/24 HOURS TOPICAL PATCH TD SCH (17:59)
[2019-05-07] MEDS: THIAMINE HCL 100 MG TABLET (FP) PO SCH (22:16)
[2019-05-07] MEDS: MENTHOL/PHENOL 1 EACH UD MM PRN (22:18)
[2019-05-08] MEDS: chlordiazePOXIDE HCL 25 MG CAPSULE PO PRN (02:00)
[2019-05-08] MEDS: MENTHOL/PHENOL 1 EACH UD MM PRN (02:20)
[2019-05-08] MEDS: chlordiazePOXIDE HCL 25 MG CAPSULE PO SCH ×4 (05:31→22:01)
[2019-05-08] MEDS: cloNIDine HCL 0.1 MG TABLET PO PRN ×2 (06:51→21:52)
[2019-05-08] MEDS ORDERED: METHADONE HCL 10 MG TABLET (FOR DETOX USE ONLY) ONE (09:45)
[2019-05-08] MEDS ORDERED: METHADONE HCL 5 MG TABLET (FOR DETOX USE ONLY) ONE (09:45)
--- NOTE | 2019-05-08 09:56 | PN ---
[facility] CIWA - CIWA Score Nausea/Vomitin Muscle Tremors: 4-Moderate,w/Arms Extend Anxiety: 2 Agitation: 2 Paroxysmal Sweats: 1-Minimal Palms Moist Orientation: 0-Oriented Tacttile Disturbances: 1-Very Mild Itch/Numbness Auditory Disturbances: 0-None Visual Disturbances: 0-None Headache: 0-None Present CIWA-Ar Total Score: 13 [facility] COWS - Scale Resting Pulse: 1= [place] 81-100 Sweatin= Chills/Flushing Restless Observation: 1= Difficult to Sit Still Pupil Size: 1= Pupils >than Normal Bone or Joint Aches: 2= Severe Diffuse Aches Runny Nose/ Eye Tearin= Nasal Congestion GI Upset > 30mins: 1= Stomach Cramp Tremor Observation of Outstretched Hands: 1= Tremor [place], Not Seen Yawning Observation: 0= None Anxiety or Irritability: 1=Feels Anxious/Irritable Goose Flesh Skin: 0=Smooth Skin COWS Score: 10 B[facility] Progress Note (SOAP) Subjective: Patient is still in moderate withdrawals from opioids and alcohol. He denies FRANCIS. Objective: 05/08/19 09:53 BP:143/88 P:82 R:18 T:98.1 All labs still pending. Assessment: 05/08/19 09:54 1. Opioid Dependence and Alcohol Dependence with withdrawals 2. Elevated BP. Plan: 1. Patient encouraged to ask for prn meds for muscle aches and encouraged PO fluids. Continue methadone and Librium protocols. 2. Elevation of BP may be due to stress of withdrawals. Will continue to observe.
[2019-05-08] MEDS ORDERED: METHADONE (DETOX) 20 MG, METHADONE (DETOX) 5 MG PO ONE (10:00)
[2019-05-08] MEDS: CYANOCOBALAMIN (VITAMIN B-12) 100 MCG TABLET PO SCH (10:50)
[2019-05-08] MEDS: PRENATAL VITAMINS W/ FOLIC ACID TABLET (FP) PO SCH (10:52)
[2019-05-08] MEDS: NICOTINE 21 MG/24 HOURS TOPICAL PATCH TD SCH (10:53)
[2019-05-08] MEDS: THIAMINE HCL 100 MG TABLET (FP) PO SCH (21:53)
[2019-05-09] MEDS: cloNIDine HCL 0.1 MG TABLET PO PRN (05:38)
[2019-05-09] MEDS: chlordiazePOXIDE HCL 25 MG CAPSULE PO PRN (05:38)
[2019-05-09] MEDS: chlordiazePOXIDE HCL 25 MG CAPSULE PO SCH ×4 (05:56→22:04)
--- NOTE | 2019-05-09 09:40 | PN ---
S CIWA - CIWA Score Nausea/Vomitin-No Nausea/No Vomiting Muscle Tremors: 2 Anxiety: 3 Agitation: 1-Slight > Activity Paroxysmal Sweats: 3 Orientation: 0-Oriented Tacttile Disturbances: 0-None Auditory Disturbances: 0-None Visual Disturbances: 0-None Headache: 2-Mild CIWA-Ar Total Score: 11 BHS COWS - Scale Resting Pulse: 0= [place] 80 or Below Sweatin= Beads of Sweat on Face Restless Observation: 1= Difficult to Sit Still Pupil Size: 0= Normal to Room Light Bone or Joint Aches: 2= Severe Diffuse Aches Runny Nose/ Eye Tearin= None GI Upset > 30mins: 0= None Tremor Observation of Outstretched Hands: 2= Slight Tremor Visible Yawning Observation: 1= 1-2x During Session Anxiety or Irritability: 2=Irritable/Anxious Goose Flesh Skin: 0=Smooth Skin COWS Score: 11 S Progress Note (SOAP) Subjective: c/o sweats, anxiety, irritability, muscle aches, and headache. Objective: 05/09/19 09:37 Vital Signs 05/09/19 05/09/19 05/09/19 03:30 06:24 09:22 Temperature 97.9 F 98.1 F Pulse Rate 74 70 Respiratory 18 18 18 Rate Blood Pressure 163/100 142/86 Assessment: 05/09/19 09:38 AOX3, in no respiratory distress. Full ROM, ambulating in the unit. Withdrawal symptoms. Plan: continue detox. Increase fluids.
[2019-05-09] MEDS ORDERED: METHADONE HCL 10 MG TABLET (FOR DETOX USE ONLY) PO ONE (10:00)
[2019-05-09] MEDS: NICOTINE 21 MG/24 HOURS TOPICAL PATCH TD SCH (10:27)
[2019-05-09] MEDS: CYANOCOBALAMIN (VITAMIN B-12) 100 MCG TABLET PO SCH (10:27)
[2019-05-09] MEDS: PRENATAL VITAMINS W/ FOLIC ACID TABLET (FP) PO SCH (10:27)
[2019-05-09] MEDS: THIAMINE HCL 100 MG TABLET (FP) PO SCH (22:04)
[2019-05-10] MEDS ORDERED: chlordiazePOXIDE HCL 10 MG CAPSULE PO PRN
[2019-05-10] MEDS: chlordiazePOXIDE HCL 10 MG CAPSULE PO SCH ×4 (06:39→22:16)
[2019-05-10] MEDS ORDERED: METHADONE HCL 10 MG TABLET (FOR DETOX USE ONLY) ONE (09:03)
[2019-05-10] MEDS ORDERED: METHADONE HCL 5 MG TABLET (FOR DETOX USE ONLY) ONE (09:03)
[2019-05-10] MEDS: NICOTINE 21 MG/24 HOURS TOPICAL PATCH TD SCH (10:00)
[2019-05-10] MEDS ORDERED: METHADONE (DETOX) 10 MG, METHADONE (DETOX) 5 MG PO ONE (10:00)
[2019-05-10] MEDS: CYANOCOBALAMIN (VITAMIN B-12) 100 MCG TABLET PO SCH (10:00)
[2019-05-10] MEDS: PRENATAL VITAMINS W/ FOLIC ACID TABLET (FP) PO SCH (10:00)
--- NOTE | 2019-05-10 12:37 | PN ---
[facility] CIWA - CIWA Score Nausea/Vomitin-No Nausea/No Vomiting Muscle Tremors: 2 Anxiety: 3 Agitation: 2 Paroxysmal Sweats: 2 Orientation: 0-Oriented Tacttile Disturbances: 0-None Auditory Disturbances: 0-None Visual Disturbances: 0-None Headache: 0-None Present CIWA-Ar Total Score: 9 BHS COWS - Scale Resting Pulse: 0= [place] 80 or Below Sweatin= Chills/Flushing Restless Observation: 3= Extraneous Movement Pupil Size: 0= Normal to Room Light Bone or Joint Aches: 2= Severe Diffuse Aches Runny Nose/ Eye Tearin= None GI Upset > 30mins: 1= Stomach Cramp Tremor Observation of Outstretched Hands: 2= Slight Tremor Visible Yawning Observation: 0= None Anxiety or Irritability: 1=Feels Anxious/Irritable Goose Flesh Skin: 0=Smooth Skin COWS Score: 10 BHS Progress Note (SOAP) Subjective: Body aches and pain, chills, sweating, diarrhea since yesterday (instructed to notify nurse and to request imodium q6hr prn), interrupted sleep Objective: 05/10/19 12:35 Last Vital Signs Temp Pulse Resp BP Pulse Ox 98.1 F 80 16 160/70 05/10/19 09:11 05/10/19 09:11 05/10/19 09:11 05/10/19 09:11 Elevated b/p 160/70 (has htn, not on medication) No admission labs in chart; lab results from 03/2019 noted Assessment: 05/10/19 12:37 Withdrawal symptoms Elevated b/p noted Plan: Continue detox Encouraged PO water intake Admission CBC and CMP ordered in AM HTN: started on clonidine prn if b/p > 140/90, start norvasc 5mg PO daily, follow up with PCP post discharge for management of htn
[2019-05-10] MEDS: cloNIDine HCL 0.1 MG TABLET PO PRN (17:12)
[2019-05-10] MEDS: THIAMINE HCL 100 MG TABLET (FP) PO SCH (22:16)
[2019-05-10] MEDS: MELATONIN 5 MG TABLETS PO PRN (22:16)
[2019-05-11] MEDS: chlordiazePOXIDE HCL 10 MG CAPSULE PO SCH ×2 (06:11→17:32)
[2019-05-11] MEDS: cloNIDine HCL 0.1 MG TABLET PO PRN ×2 (07:38→19:32)
[2019-05-11] MEDS ORDERED: cloNIDine HCL 0.1 MG TABLET PO ONE (09:31)
--- NOTE | 2019-05-11 09:36 | PN ---
[facility] CIWA - CIWA Score Nausea/Vomitin-Mild Nausea/No Vomiting Muscle Tremors: 1-None Visible, but [place] Anxiety: 2 Agitation: 2 Paroxysmal Sweats: No Perspiration Orientation: 0-Oriented Tacttile Disturbances: 0-None Auditory Disturbances: 0-None Visual Disturbances: 0-None Headache: 2-Mild CIWA-Ar Total Score: 8 BHS COWS - Scale Resting Pulse: 0= [place] 80 or Below Sweatin= Chills/Flushing Restless Observation: 1= Difficult to Sit Still Pupil Size: 1= Pupils >than Normal Bone or Joint Aches: 1= Mild Discomfort Runny Nose/ Eye Tearin= Nasal Congestion GI Upset > 30mins: 1= Stomach Cramp Tremor Observation of Outstretched Hands: 1= Tremor [place], Not Seen Yawning Observation: 1= 1-2x During Session Anxiety or Irritability: 1=Feels Anxious/Irritable Goose Flesh Skin: 0=Smooth Skin COWS Score: 9 S Progress Note (SOAP) Subjective: alert,irritable,interrupted sleep,pain in the body Objective: 05/11/19 09:34 Vital Signs Temperature 99.3 F 05/11/19 07:40 Pulse Rate 73 05/11/19 07:40 Respiratory Rate 18 05/11/19 07:40 Blood Pressure 170/97 05/11/19 07:40 O2 Sat by Pulse Oximetry (%) Assessment: 05/11/19 09:34 withdrawal symptom Plan: continue detox,clonidine 0.1 mg po now,continue methadone regimen
[2019-05-11] MEDS ORDERED: amLODIPine BESYLATE 5 MG TABLET (FP) PO SCH (10:00)
[2019-05-11] MEDS ORDERED: METHADONE HCL 10 MG TABLET (FOR DETOX USE ONLY) PO ONE (10:00)
[2019-05-11] MEDS: CYANOCOBALAMIN (VITAMIN B-12) 100 MCG TABLET PO SCH (10:09)
[2019-05-11] MEDS: PRENATAL VITAMINS W/ FOLIC ACID TABLET (FP) PO SCH (10:09)
[2019-05-11] MEDS: NICOTINE 21 MG/24 HOURS TOPICAL PATCH TD SCH (10:10)
[2019-05-11] MEDS: THIAMINE HCL 100 MG TABLET (FP) PO SCH (22:36)
[2019-05-11] MEDS: MELATONIN 5 MG TABLETS PO PRN (22:36)
[2019-05-12] MEDS ORDERED: chlordiazePOXIDE HCL 10 MG CAPSULE PO ONE (05:00)
[2019-05-12] MEDS ORDERED: METHADONE HCL 5 MG TABLET (FOR DETOX USE ONLY) PO ONE (06:00)
[2019-05-12 06:16] VITALS: TEMP 98.1
[2019-05-12 06:17] VITALS: BP 176/97; PULSE 70
--- NOTE | 2019-05-12 08:07 | DS ---
[facility] Detox Discharge Summary Admission Date: 05/07/19 Discharge Date: 05/12/19 - History Present History: Alcohol Dependence, Cocaine Dependence, Opioid Dependence - Physical Exam Results Vital Signs: Vital Signs Temperature 98.1 F 05/12/19 06:00 Pulse Rate 70 05/12/19 06:05 Respiratory Rate 18 05/12/19 06:05 Blood Pressure 176/97 H 05/12/19 06:05 O2 Sat by Pulse Oximetry (%) Pertinent Admission Physical Exam Findings: Vital Signs Period Temp Pulse Resp BP Sys/Issa Pulse Ox Last 24 Hr 97.4 F-98.1 F 68-75 16-18 146-197/86-103 - Treatment Hospital Course: Detox Protocol Followed, Detoxed Safely, Responded well, Discharged Condition Good, Rehab Referral Accepted Patient has Accepted a Rehab Referral to: referred to [facility] - Medication Discharge Medications: Ambulatory Orders NK [No Known Home Medication] 11/15/18 - Diagnosis (1) Anemia Current Visit: No Status: Acute (2) Elevated aspartate aminotransferase level Current Visit: No Status: Acute (3) Opioid dependence on agonist therapy Current Visit: No Status: Acute (4) Opioid dependence with withdrawal Current Visit: Yes Status: Chronic (5) Substance-induced sleep disorder Current Visit: No Status: Acute (6) Weight loss Current Visit: No Status: Acute (7) Alcohol dependence with uncomplicated withdrawal Current Visit: Yes Status: Chronic (8) Bipolar disorder Current Visit: No Status: Chronic (9) Cocaine dependence with withdrawal Current Visit: Yes Status: Chronic (10) Hypertension Current Visit: Yes Status: Chronic Qualifiers: Hypertension type: unspecified secondary hypertension Qualified Code(s): I15.9 - Secondary hypertension, unspecified (11) Nicotine dependence Current Visit: Yes Status: Chronic Qualifiers: Nicotine product type: cigarettes Substance use status: uncomplicated Qualified Code(s): F17.210 - Nicotine dependence, cigarettes, uncomplicated - AMA Did Patient Leave Against Medical Advice: No
== END 2019-05-12 08:30 | disposition home or self-care (01) | DRG 773 ==
LOC: YASAS 13:24 → Y6N 16:58
PROVIDERS: ADMIT Surgery; ATTEND Surgery
PROC: HZ2ZZZZ Detoxification Services for Substance Abuse Treatment (ICD-10-PCS; principal; 2019-05-07)
DX: F11.23 Opioid dependence with withdrawal (principal); F10.230 Alcohol dependence with withdrawal, uncomplicated; F14.23 Cocaine dependence with withdrawal; F17.210 Nicotine dependence, cigarettes, uncomplicated; F19.282 Other psychoactive substance dependence with psychoactive substance-induced sleep disorder; I15.9 Secondary hypertension, unspecified; L85.3 Xerosis cutis; R63.4 Abnormal weight loss; Z68.22 Body mass index [BMI] 22.0-22.9, adult; Z86.59 Personal history of other mental and behavioral disorders
CPT/HCPCS: J0735

== ENCOUNTER 2019-06-07 13:38 | Inpatient (IN) | payer OTHER ==
[2019-06-07 16:11] VITALS: BMI 23.5
--- NOTE | 2019-06-07 17:44 | HP ---
COWS - Scale Resting Pulse: 0= [place] 80 or Below Sweatin= Chills/Flushing Restless Observation: 1= Difficult to Sit Still Pupil Size: 1= Pupils >than Normal Bone or Joint Aches: 2= Severe Diffuse Aches Runny Nose/ Eye Tearin= Runny Nose/Eyes GI Upset > 30mins: 2= Nausea/Diarrhea Tremor Observation: 2= Slight Tremor Visible Yawning Observation: 1= 1-2x During Session Anxiety or Irritability: 2=Irritable/Anxious Goose Flesh Skin: 0=Smooth Skin COWS Score: 14 CIWA Score Nausea/Vomitin Muscle Tremors: 3 Anxiety: 3 Agitation: 2 Paroxysmal Sweats: 1-Minimal Palms Moist Orientation: 0-Oriented Tacttile Disturbances: 1-Very Mild Itch/Numbness Auditory Disturbances: 0-None Visual Disturbances: 0-None Headache: 2-Mild CIWA-Ar Total Score: 15 - Admission Criteria [facility]ASAS Guidelines: Admission for Medically Managed Detox: Requires at least one of the followin. CIWA greater than 12 2. Seizures within the past 24 hours 3. Delirium tremens within the past 24 hours 4. Hallucinations within the past 24 hours 5. Acute intervention needed for co occurring medical disorder 6. Acute intervention needed for co occurring psychiatric disorder 7. Severe withdrawal that cannot be handled at a lower level of care (continued vomiting, continued diarrhea, abnormal vital signs) requiring intravenous medication and/or fluids 8. Admission ROS S - [facility] Chief Complaint: i need help to stop using drugs and alcohol Allergies/Adverse Reactions: Allergies Allergy/AdvReac Type Severity Reaction Status Date / Time lorazepam [From Ativan] Allergy Mild Itching Verified 06/07/19 16:02 acetaminophen [From Tylenol] Allergy Rash Verified 06/07/19 16:02 ibuprofen Allergy Rash Verified 06/07/19 16:02 History of Present Illness: this 54 years old male with heroin,alcohol,cocaine dependence,seeking detox, withdrawal symptom, multiple admissions to detox,last [facility] form 05/07/19 to 05/12/19 but keep relapsing denied seizure denied syncope weight loss longest sobriety 6 years nicotine dependence 10 cigarette/day plan for rehab after detox Exam Limitations: No Limitations - Ebola screening Have you traveled outside of the country in the last 21 days: No (N) Have you had contact with anyone from an Ebola affected area: No Do you have a fever: No - Review of Systems Constitutional: Chills, Loss of Appetite, Malaise, Night Sweats, Changes in sleep, Unintentional Wgt. Loss, Other EENT: reports: Tearing, Nose Congestion Respiratory: reports: No Symptoms reported Cardiac: reports: No Symptoms Reported GI: reports: Nausea, Vomiting, Abdominal cramping : reports: No Symptoms Reported Musculoskeletal: reports: Back Pain, Joint Pain, Muscle Pain, Joint Stiffness Integumentary: reports: Dryness Neuro: reports: Headache, Tremors Endocrine: reports: No Symptoms Reported Hematology: reports: No Symptoms Reported Psychiatric: reports: No Sypmtoms Reported, Mood/Affect Appropiate, Orientated x3 Other Systems: Reviewed and Negative Patient History - Patient Medical History Hx Anemia: No Hx Asthma: No Hx Chronic Obstructive Pulmonary Disease (COPD): No Hx Cancer: No Hx Cardiac Disorders: No Hx Congestive Heart Failure: No Hx Hypertension: Yes (no medication) Hx Hypercholesterolemia: No Hx Pacemaker: No HX Cerebrovascular Accident: No Hx Seizures: No Hx Dementia: No Hx Diabetes: No Hx Gastrointestinal Disorders: No Hx Liver Disease: No Hx Genitourinary Disorders: No Hx Sexually Transmitted Disorders: No Hx Renal Disease (ESRD): No Hx Thyroid Disease: No Hx Human Immunodeficiency Virus (HIV): No Hx Hepatitis C: No Hx Depression: No Hx Suicide Attempt: No Hx Bipolar Disorder: Yes (OFF MEDS) Hx Schizophrenia: No Other Medical History: no suicidal,no homicidal - Patient Surgical History Past Surgical History: No Hx Neurologic Surgery: No Hx Cataract Extraction: No Hx Cardiac Surgery: No Hx Lung Surgery: No Hx Breast Surgery: No Hx Breast Biopsy: No Hx Abdominal Surgery: No Hx Appendectomy: No Hx Cholecystectomy: No Hx Genitourinary Surgery: No Hx Section: No Hx Orthopedic Surgery: No Anesthesia Reaction: No - PPD History Previous Implant?: Yes Date: 06/19/18 Results: 0mm PPD to be Administered?: No - Smoking Cessation Smoking history: Current every day smoker Have you smoked in the past 12 months: Yes Aproximately how many cigarettes per day: 10 Cigars Per Day: 0 Hx Chewing Tobacco Use: No Initiated information on smoking cessation: Yes 'Breaking Loose' booklet given: 06/07/19 - Substance & Tx. History Hx Alcohol Use: Yes Hx Substance Use: Yes Substance Use Type: Cocaine, Heroin Hx Substance Use Treatment: Yes ([facility] 05/07/19 to 06/11/19) - Substances abused Alcohol Substance route: Oral Frequency: Daily Amount used: 1/2 pint VODKA, 2 CASES OF 6 PACKS OF BEER Age of first use: 12 Date of last use: 06/06/19 Heroin Substance route: Inhalation Frequency: Daily Amount used: 8 bags Age of first use: 25 Date of last use: 06/06/19 Cocaine Substance route: Inhalation Frequency: Daily Amount used: 1/2 gm Age of first use: 25 Date of last use: 06/06/19 Admission Physical Exam S - Vital Signs Vital Signs: Vital Signs - 24 hr 06/07/19 16:04 Temperature 97.5 F L Pulse Rate 59 L Respiratory 20 Rate Blood Pressure 135/73 - Physical General Appearance: Yes: Moderate Distress, Sweating, Anxious HEENTM: Yes: Normal ENT Inspection, VIVIANE, Pharynx Normal Respiratory: Yes: Lungs Clear, Normal Breath Sounds, No Respiratory Distress Neck: Yes: Within Normal Limits, Supple, Trachea in good position Breast: Yes: Within Normal Limits Cardiology: Yes: Within Normal Limits, Regular Rhythm, Regular Rate, S1, S2 Abdominal: Yes: Within Normal Limits, Normal Bowel Sounds, Non Tender, Flat, Soft Genitourinary: Yes: Within Normal Limits Back: Yes: Muscle Spasm Musculoskeletal: Yes: Back pain, Muscle Pain Extremities: Yes: Normal Range of Motion, Tremors Neurological: Yes: shoemaking cutter II-XII NML intact, Alert, Motor Strength 5/5 Integumentary: Yes: Dry Lymphatic: Yes: Within Normal Limits - Diagnostic (1) Opioid dependence with withdrawal Current Visit: No Status: Chronic (2) Bipolar disorder Current Visit: No Status: Chronic (3) Weight loss Current Visit: No Status: Acute (4) Alcohol dependence with uncomplicated withdrawal Current Visit: No Status: Chronic (5) Cocaine dependence with withdrawal Current Visit: No Status: Chronic (6) Hypertension Current Visit: No Status: Chronic Qualifiers: Hypertension type: unspecified secondary hypertension Qualified Code(s): I15.9 - Secondary hypertension, unspecified Comment: DIETARY CONTROL AMLODIPIN 5 MG LAST DOSE 2 MONTHS AGO (7) Nicotine dependence Current Visit: No Status: Chronic Qualifiers: Nicotine product type: cigarettes Substance use status: uncomplicated Qualified Code(s): F17.210 - Nicotine dependence, cigarettes, uncomplicated Cleared for Admission [facility] - Detox or Rehab [facility] Level of Care: Medically Managed Detox Regimen/Protocol: Methadone/Librium Breathalyzer - Breathalyzer Breathalyzer: 0 Urine Drug Screen - Test Device Lot number: [id number] Expiration date: 02/05/21 - Control Is test valid?: Yes - Results Drug screen NEGATIVE: No Urine drug screen results: CHRISTOPHER-Cocaine, FEN-Fentanyl, MOP-Opiates, MTD-Methadone , BZO-Benzodiazepines Inpatient Rehab Admission - Rehab Decision to Admit Inpatient rehab admission?: No
[2019-06-07] MEDS ORDERED: NICOTINE POLACRILEX 2 MG GUM BUC PRN (17:52)
[2019-06-07] MEDS ORDERED: BISMUTH SUBSALICYLATE 524 MG/30 ML UD PO PRN (17:52)
[2019-06-07] MEDS ORDERED: MENTHOL/PHENOL 1 EACH UD MM PRN (17:52)
[2019-06-07] MEDS ORDERED: MAG HYDROX/AL HYDROX/SIMETH 30 ML UNIT-DOSE CUP PO PRN (17:52)
[2019-06-07] MEDS ORDERED: MELATONIN 5 MG TABLETS PO PRN (17:52)
[2019-06-07] MEDS ORDERED: chlordiazePOXIDE HCL 25 MG CAPSULE PO PRN (17:52)
[2019-06-07] MEDS ORDERED: METHOCARBAMOL 500 MG TABLET PO PRN (17:52)
[2019-06-07] MEDS ORDERED: cloNIDine HCL 0.1 MG TABLET PO PRN (17:52)
[2019-06-07] MEDS ORDERED: hydrOXYzine PAMOATE 25 MG CAPSULE (FP) PO PRN (17:52)
[2019-06-07] MEDS ORDERED: MAGNESIUM CITRATE 300 ML BOTTLE PO PRN (17:52)
[2019-06-07] MEDS ORDERED: MAGNESIUM HYDROX 2400MG/30ML ORAL SUSPENSION 30 ML CUP PO PRN (17:52)
[2019-06-07] MEDS ORDERED: METHADONE HCL 10 MG TABLET (FOR DETOX USE ONLY) PO ONE (18:10)
[2019-06-07] MEDS: NICOTINE 21 MG/24 HOURS TOPICAL PATCH TD SCH (18:32)
[2019-06-07] MEDS: chlordiazePOXIDE HCL 25 MG CAPSULE PO SCH (22:02)
[2019-06-07] MEDS: THIAMINE HCL 100 MG TABLET (FP) PO SCH (22:02)
[2019-06-08] MEDS: chlordiazePOXIDE HCL 25 MG CAPSULE PO SCH ×4 (05:35→22:49)
[2019-06-08] MEDS ORDERED: METHADONE HCL 5 MG TABLET (FOR DETOX USE ONLY) ONE (09:14)
[2019-06-08] MEDS ORDERED: METHADONE HCL 10 MG TABLET (FOR DETOX USE ONLY) ONE (09:14)
[2019-06-08] MEDS ORDERED: METHADONE (DETOX) 20 MG, METHADONE (DETOX) 5 MG PO ONE (10:00)
[2019-06-08] MEDS: PRENATAL VITAMINS W/ FOLIC ACID TABLET (FP) PO SCH (10:14)
[2019-06-08] MEDS: NICOTINE 21 MG/24 HOURS TOPICAL PATCH TD SCH (10:14)
[2019-06-08 11:39] LABS: HEMATOCRIT 35.2 % (35.4-49); HEMOGLOBIN 11.5 GM/dL (11.7-16.9); MCH 33.1 pg (25.7-33.7); MCHC 32.7 g/dl (32.0-35.9); MEAN CELL VOLUME 101.1 fl (80-96); PLATELET COUNT 147 K/MM3 (134-434); RBC 3.48 M/mm3 (4.00-5.60); RDW 13.3 % (11.9-15.9); WHITE BLOOD COUNT 4.7 K/mm3 (4.0-10.0)
[2019-06-08 12:21] LABS: ALBUMIN 3.1 g/dl (3.4-5.0); BILIRUBIN,TOTAL 0.4 mg/dL (0.2-1); BLOOD UREA NITROGEN 16.3 mg/dL (7-18); CALCIUM 8.4 mg/dL (8.5-10.1); POTASSIUM 3.7 mmol/L (3.5-5.1)
--- NOTE | 2019-06-08 13:10 | PN ---
[facility] CIWA - CIWA Score Nausea/Vomitin-Mild Nausea/No Vomiting Muscle Tremors: 3 Anxiety: 2 Agitation: 2 Paroxysmal Sweats: 1-Minimal Palms Moist Orientation: 0-Oriented Tacttile Disturbances: 1-Very Mild Itch/Numbness Auditory Disturbances: 0-None Visual Disturbances: 0-None Headache: 1-Very Mild CIWA-Ar Total Score: 11 S COWS - Scale Resting Pulse: 0= [place] 80 or Below Sweatin= Chills/Flushing Restless Observation: 0= Sits Still Pupil Size: 0= Normal to Room Light Bone or Joint Aches: 1= Mild Discomfort Runny Nose/ Eye Tearin= None GI Upset > 30mins: 2= Nausea/Diarrhea Tremor Observation of Outstretched Hands: 2= Slight Tremor Visible Yawning Observation: 0= None Anxiety or Irritability: 2=Irritable/Anxious Goose Flesh Skin: 3=Piloerection COWS Score: 11 [facility] Progress Note (SOAP) Subjective: doing well with librium and methadone detox regimen resting on bed limited conversation with staff feeling tired prefers to stay in bed today Objective: 06/08/19 13:10 Vital Signs Temperature 97.8 F 06/08/19 09:10 Pulse Rate 55 L 06/08/19 09:10 Respiratory Rate 18 06/08/19 09:10 Blood Pressure 150/73 06/08/19 09:10 O2 Sat by Pulse Oximetry (%) Laboratory Last Values WBC 4.7 K/mm3 (4.0-10.0) 06/08/19 08:50 RBC 3.48 M/mm3 (4.00-5.60) L 06/08/19 08:50 Hgb 11.5 GM/dL (11.7-16.9) L 06/08/19 08:50 Hct 35.2 % (35.4-49) L 06/08/19 08:50 MCV 101.1 fl (80-96) H 06/08/19 08:50 MCH 33.1 pg (25.7-33.7) 06/08/19 08:50 MCHC 32.7 g/dl (32.0-35.9) 06/08/19 08:50 RDW 13.3 % (11.9-15.9) 06/08/19 08:50 Plt Count 147 K/MM3 (134-434) 06/08/19 08:50 MPV 8.0 fl (7.5-11.1) 06/08/19 08:50 Sodium 142 mmol/L (136-145) 06/08/19 08:50 Potassium 3.7 mmol/L (3.5-5.1) 06/08/19 08:50 Chloride 108 mmol/L (98-107) H 06/08/19 08:50 Carbon Dioxide 29 mmol/L (21-32) 06/08/19 08:50 Anion Gap 6 MMOL/L (8-16) L 06/08/19 08:50 BUN 16.3 mg/dL (7-18) 06/08/19 08:50 Creatinine 1.0 mg/dL (0.55-1.3) 06/08/19 08:50 Est GFR (CKD-EPI)AfAm 97.77 06/08/19 08:50 Est GFR (CKD-EPI)NonAf 84.35 06/08/19 08:50 Random Glucose 165 mg/dL (74-106) H 06/08/19 08:50 Calcium 8.4 mg/dL (8.5-10.1) L 06/08/19 08:50 Total Bilirubin 0.4 mg/dL (0.2-1) 06/08/19 08:50 AST 72 U/L (15-37) H 06/08/19 08:50 ALT 60 U/L (13-61) 06/08/19 08:50 Alkaline Phosphatase 176 U/L (45-117) H 06/08/19 08:50 Total Protein 7.0 g/dl (6.4-8.2) 06/08/19 08:50 Albumin 3.1 g/dl (3.4-5.0) L 06/08/19 08:50 RPR Titer Nonreactive (NONREACTIVE) 06/08/19 08:50 06/08/19 13:12 lab noted glucose elevation fasting glucose ordered Assessment: 06/08/19 13:14 alcohol and opiate withdrawal sx discuss medication assisted treatment program Plan: continue librium and methadone detox regimen
--- NOTE | 2019-06-08 15:53 | CONSULT ---
[facility] Psychiatric Consult - Data Date of interview: 06/08/19 Admission source: [facility] Identifying data: Readmission to [facility] for this 54 y/o AA male self- referred for detoxification treatment. MINO issues : alcohol, cocaine, heroin. Examined at [address] [place] [address]. Patient is single, no dependents, homeless, unemployed and supported on food stamps. Substance Abuse History: Discussed in this session. Details in current [facility] report as follows : Smoking history: Current every day smoker. Have you smoked in the past 12 months: Yes. Aproximately how many cigarettes per day: 10. Cigars Per Day: 0. Hx Chewing Tobacco Use: No. Initiated information on smoking cessation: Yes. 'Breaking Loose' booklet given: 06/07/19. - Substance & Tx. History. Hx Alcohol Use: Yes. Hx Substance Use: Yes. Substance Use Type : Cocaine, Heroin. Hx Substance Use Treatment: Yes ([facility] 05/07/19 to 06/11/19). - Substances abused. Alcohol. Substance route: Oral. Frequency: Daily. Amount used: 1/2 pint VODKA, 2 CASES OF 6 PACKS OF BEER. Age of first use: 12. Date of last use: 06/06/19. Heroin. Substance route: Inhalation. Frequency: Daily. Amount used: 8 bags. Age of first use: 25. Date of last use : 06/06/19. Cocaine. Substance route: Inhalation. Frequency: Daily. Amount used: 1/2 gm. Age of first use: 25. Date of last use: 06/06/19 Medical History: Hypertension. Psychiatric History: Patient denies history of psychiatric hospitalizations, OPD care or suicide attempts. Physical/Sexual Abuse/Trauma History: Patient denies. Additional Comment: Urine drug screen results: CHRISTOPHER-Cocaine, FEN-Fentanyl, MOP- Opiates, MTD-Methadone, BZO-Benzodiazepines. Noted. Mental Status Exam - Mental Status Exam Alert and Oriented to: Time, Place, Person Cognitive Function: Grossly Intact (falls asleep during interview) Patient Appearance: Well Groomed (short stature) Mood: Irritable Affect: Mood Congruent, Constricted Patient Behavior: Sedated (mildly sedated), Fatigued Speech Pattern: Delayed, Slurred Voice Loudness: Mildly Soft/Quiet Thought Process: Goal Oriented Thought Disorder: Not Present Hallucinations: Denies Suicidal Ideation: Denies Homicidal Ideation: Denies Insight/Judgement: Poor Sleep: Well (since admission) Appetite: Fair Muscle strength/Tone: Normal Gait/Station: Other (slow gait) Psychiatric Findings - Problem List ([place] 1, 2,3) (1) Alcohol dependence with uncomplicated withdrawal Current Visit: Yes Status: Acute (2) Opioid dependence with withdrawal Current Visit: Yes Status: Acute (3) Cocaine dependence with withdrawal Current Visit: Yes Status: Chronic (4) Nicotine dependence Current Visit: Yes Status: Chronic Qualifiers: Nicotine product type: cigarettes Substance use status: uncomplicated Qualified Code(s): F17.210 - Nicotine dependence, cigarettes, uncomplicated (5) Substance induced mood disorder Current Visit: Yes Status: Acute - Initial Treatment Plan Initial Treatment Plan: Psychoeducation. Sleep hygiene. Support. Groups. Detoxification. Observation.
[2019-06-08] MEDS: THIAMINE HCL 100 MG TABLET (FP) PO SCH (22:49)
[2019-06-09] MEDS: chlordiazePOXIDE HCL 25 MG CAPSULE PO SCH ×4 (05:54→22:13)
[2019-06-09] MEDS ORDERED: METHADONE HCL 10 MG TABLET (FOR DETOX USE ONLY) PO ONE (10:00)
[2019-06-09] MEDS: PRENATAL VITAMINS W/ FOLIC ACID TABLET (FP) PO SCH (10:25)
[2019-06-09] MEDS: NICOTINE 21 MG/24 HOURS TOPICAL PATCH TD SCH (10:27)
--- NOTE | 2019-06-09 17:04 | PN ---
S CIWA - CIWA Score Nausea/Vomitin Muscle Tremors: None Anxiety: 3 Agitation: 2 Paroxysmal Sweats: No Perspiration Orientation: 0-Oriented Tacttile Disturbances: 0-None Auditory Disturbances: 2-Mild Harshness/Frighten Visual Disturbances: 2-Mild Sensitivity Headache: 0-None Present CIWA-Ar Total Score: 11 [facility] COWS - Scale Resting Pulse: 0= [place] 80 or Below Sweatin= No chills or Flushing Restless Observation: 1= Difficult to Sit Still Pupil Size: 0= Normal to Room Light Bone or Joint Aches: 2= Severe Diffuse Aches Runny Nose/ Eye Tearin= Nasal Congestion GI Upset > 30mins: 2= Nausea/Diarrhea Tremor Observation of Outstretched Hands: 0= None Yawning Observation: 1= 1-2x During Session Anxiety or Irritability: 2=Irritable/Anxious Goose Flesh Skin: 3=Piloerection COWS Score: 12 S Progress Note (SOAP) Subjective: Anxious, Body Aches, Fatigue, Nausea. Objective: PATIENT A & O X 3, OBSERVED AMBULATING ON DETOX UNIT UNASSISTED. IN NO ACUTE DISTRESS. 06/09/19 17:00 Vital Signs Temperature 97.8 F 06/09/19 09:36 Pulse Rate 74 06/09/19 09:36 Respiratory Rate 16 06/09/19 09:36 Blood Pressure 152/94 06/09/19 09:36 O2 Sat by Pulse Oximetry (%) Laboratory Tests 06/08/19 06/08/19 06/08/19 08:50 08:50 08:50 WBC 4.7 RBC 3.48 L Hgb 11.5 L Hct 35.2 L MCV 101.1 H MCH 33.1 MCHC 32.7 RDW 13.3 Plt Count 147 MPV 8.0 Sodium 142 Potassium 3.7 Chloride 108 H Carbon Dioxide 29 Anion Gap 6 L BUN 16.3 Creatinine 1.0 Est GFR (CKD-EPI)AfAm 97.77 Est GFR (CKD-EPI)NonAf 84.35 Random Glucose 165 H Calcium 8.4 L Total Bilirubin 0.4 AST 72 H ALT 60 Alkaline Phosphatase 176 H Total Protein 7.0 Albumin 3.1 L RPR Titer Nonreactive LABS NOTED. Assessment: 06/09/19 17:00 WITHDRAWAL SYMPTOMS. ANEMIA. ELEVATED ALKALINE PHOSPHASTASE LEVEL. HYPERTENSION. HYPERGLYCEMIA. 10/01/19 17:01 Plan: CONTINUE DETOX. START LISINOPRIL, 10 MG PO DAILY FOR ELEVATED BLOOD PRESSURE (PATIENT REPORTED HISTORY OF HTN ON DETOX ADMISSION HISTORY AND PHYSICAL ASSESSMENT; HOWEVER, HE DENIES CURRENT PRESCRIPTION OF MEDICATION ON OUTPATIENT BASIS). FASTING GLUCOSE LEVEL ORDERED FOR TOMORROW AM FOR ELEVATED RANDOM GLUCOSE LEVEL NOTED ON DETOX ADMISSION LABORATORY ASSESSMENT. PATIENT IS CURRENTLY RECEIVING DAILY MVI CONTAINING B VITAMINS AND IRON WHILE ADMITTED FOR DETOX.
[2019-06-09] MEDS ORDERED: LISINOPRIL 10 MG TABLET (FP) ONE (17:14)
[2019-06-09] MEDS ORDERED: LISINOPRIL 10 MG TABLET (FP) PO ONE (17:15)
[2019-06-09] MEDS: THIAMINE HCL 100 MG TABLET (FP) PO SCH (22:13)
[2019-06-10] MEDS ORDERED: chlordiazePOXIDE HCL 10 MG CAPSULE PO PRN
[2019-06-10] MEDS ORDERED: chlordiazePOXIDE HCL 10 MG CAPSULE PO SCH (05:00)
[2019-06-10 06:50] VITALS: BP 188/90; PULSE 56; TEMP 97
[2019-06-10] MEDS ORDERED: METHADONE (DETOX) 10 MG, METHADONE (DETOX) 5 MG PO ONE (10:00)
[2019-06-10] MEDS ORDERED: LISINOPRIL 10 MG TABLET (FP) PO SCH (10:00)
--- NOTE | 2019-06-10 15:58 | DS ---
[facility] Detox Discharge Summary Admission Date: 06/07/19 Discharge Date: 06/10/19 - History Present History: Alcohol Dependence, Cocaine Dependence, Opioid Dependence Additional Comments: PATIENT DOES NOT WISH TO REMAIN TO COMPLETE DETOX REGIMEN. RISKS OF LEAVING DETOX UNIT AGAINST MEDICAL ADVICE AND PRIOR TO COMPLETION OF DETOX REGIMEN EXPLAINED TO PATIENT. PATIENT ADVISED TO GO IMMEDIATELY TO NEAREST ER SHOULD ANY INTOLERABLE WITHDRAWAL / DETOX SYMPTOMS DEVELOP AT ANY TIME. PATIENT VERBALIZED UNDERSTANDING OF ALL INFORMATION / RECOMMENDATIONS PRESENTED TO HIM PRIOR TO DEPARTURE FROM DETOX UNIT. PATIENT LEFT DETOX UNIT IN STABLE MEDICAL CONDITION. Pertinent Past History: Nicotine Dependence, HTN, Bipolar disorder, Anemia, Elevated Alkaline Phosphatase Level, Elevated AST Level, Weight Loss, Hyperglycemia. - Physical Exam Results Vital Signs: Vital Signs Temperature 97.0 F L 06/10/19 06:50 Pulse Rate 56 L 06/10/19 06:50 Respiratory Rate 18 06/10/19 06:50 Blood Pressure 188/90 H 06/10/19 06:50 O2 Sat by Pulse Oximetry (%) Pertinent Admission Physical Exam Findings: WITHDRAWAL SYMPTOMS. Laboratory Tests 06/08/19 06/08/19 06/08/19 08:50 08:50 08:50 WBC 4.7 RBC 3.48 L Hgb 11.5 L Hct 35.2 L MCV 101.1 H MCH 33.1 MCHC 32.7 RDW 13.3 Plt Count 147 MPV 8.0 Sodium 142 Potassium 3.7 Chloride 108 H Carbon Dioxide 29 Anion Gap 6 L BUN 16.3 Creatinine 1.0 Est GFR (CKD-EPI)AfAm 97.77 Est GFR (CKD-EPI)NonAf 84.35 Random Glucose 165 H Calcium 8.4 L Total Bilirubin 0.4 AST 72 H ALT 60 Alkaline Phosphatase 176 H Total Protein 7.0 Albumin 3.1 L RPR Titer Nonreactive LABS NOTED. - Medication Discharge Medications: Ambulatory Orders Naloxone HCl [Narcan] 4 mg NS ASDIR PRN #1 spray 06/08/19 - Diagnosis (1) Alcohol dependence with uncomplicated withdrawal Status: Acute (2) Anemia Status: Acute Qualifiers: Anemia type: unspecified type Qualified Code(s): D64.9 - Anemia, unspecified (3) Elevated alkaline phosphatase level Status: Acute (4) Elevated aspartate aminotransferase level Status: Acute (5) Hyperglycemia Status: Acute (6) Opioid dependence with withdrawal Status: Acute (7) Substance induced mood disorder Status: Acute (8) Weight loss Status: Acute (9) Bipolar disorder Status: Chronic Qualifiers: Active/Remission status: remission status unspecified Qualified Code(s): F31.9 - Bipolar disorder, unspecified (10) Cocaine dependence with withdrawal Status: Chronic (11) Hypertension Status: Chronic Qualifiers: Hypertension type: unspecified secondary hypertension Qualified Code(s): I15.9 - Secondary hypertension, unspecified (12) Nicotine dependence Status: Chronic Qualifiers: Nicotine product type: cigarettes Substance use status: uncomplicated Qualified Code(s): F17.210 - Nicotine dependence, cigarettes, uncomplicated - AMA Did Patient Leave Against Medical Advice: Yes (PATIENT DID NOT WISH TO REMAIN TO COMPLETE DETOX REGIMEN.) S CIWA - CIWA Score Nausea/Vomitin-Mild Nausea/No Vomiting Muscle Tremors: None Anxiety: 4-Mod. Anxious/Guarded Agitation: 3 Paroxysmal Sweats: No Perspiration Orientation: 0-Oriented Tacttile Disturbances: 1-Very Mild Itch/Numbness Auditory Disturbances: 0-None Visual Disturbances: 0-None Headache: 0-None Present CIWA-Ar Total Score: 9 S COWS - Scale Resting Pulse: 0= [place] 80 or Below Sweatin= No chills or Flushing Restless Observation: 1= Difficult to Sit Still Pupil Size: 0= Normal to Room Light Bone or Joint Aches: 2= Severe Diffuse Aches Runny Nose/ Eye Tearin= None GI Upset > 30mins: 2= Nausea/Diarrhea Tremor Observation of Outstretched Hands: 0= None Yawning Observation: 1= 1-2x During Session Anxiety or Irritability: 2=Irritable/Anxious Goose Flesh Skin: 0=Smooth Skin COWS Score: 8
[2019-06-11] MEDS ORDERED: chlordiazePOXIDE HCL 10 MG CAPSULE PO SCH (05:00)
[2019-06-11] MEDS ORDERED: METHADONE HCL 10 MG TABLET (FOR DETOX USE ONLY) PO ONE (10:00)
[2019-06-12] MEDS ORDERED: chlordiazePOXIDE HCL 10 MG CAPSULE PO ONE (05:00)
[2019-06-12] MEDS ORDERED: METHADONE HCL 5 MG TABLET (FOR DETOX USE ONLY) PO ONE (06:00)
== END 2019-06-10 08:36 | disposition left against medical advice (07) | DRG 770 ==
LOC: YASAS 13:38 → Y3N 17:57
PROVIDERS: ADMIT Surgery; ATTEND Surgery
PROC: HZ2ZZZZ Detoxification Services for Substance Abuse Treatment (ICD-10-PCS; principal; 2019-06-07)
DX: F11.23 Opioid dependence with withdrawal (principal); F10.230 Alcohol dependence with withdrawal, uncomplicated; F14.20 Cocaine dependence, uncomplicated; F17.210 Nicotine dependence, cigarettes, uncomplicated; F19.24 Other psychoactive substance dependence with psychoactive substance-induced mood disorder; F31.9 Bipolar disorder, unspecified; I15.9 Secondary hypertension, unspecified; D64.9 Anemia, unspecified; R74.0 Nonspecific elevation of levels of transaminase and lactic acid dehydrogenase [LDH]; R73.9 Hyperglycemia, unspecified; R63.4 Abnormal weight loss; Z88.8 Allergy status to other drugs, medicaments and biological substances
CPT/HCPCS: 36415; 80053; 85027; 86593; J0735

== ENCOUNTER 2019-06-28 15:26 | Inpatient (IN) | payer OTHER ==
[2019-06-28 15:46] VITALS: BMI 23.3
--- NOTE | 2019-06-28 20:19 | HP ---
COWS - Scale Resting Pulse: 0= [place] 80 or Below Sweatin= Chills/Flushing Restless Observation: 5= Unable to Sit Still Pupil Size: 0= Normal to Room Light Bone or Joint Aches: 4=Acute Joint/Muscle Pain Runny Nose/ Eye Tearin= None GI Upset > 30mins: 1= Stomach Cramp Tremor Observation: 0= None Yawning Observation: 0= None Goose Flesh Skin: 0=Smooth Skin CIWA Score Nausea/Vomitin-Mild Nausea/No Vomiting Muscle Tremors: None Anxiety: 4-Mod. Anxious/Guarded Agitation: 4-Moderately Restless Paroxysmal Sweats: 3 Orientation: 0-Oriented Tacttile Disturbances: 0-None Auditory Disturbances: 0-None Visual Disturbances: 0-None Headache: 0-None Present CIWA-Ar Total Score: 12 - Admission Criteria OASAS Guidelines: Admission for Medically Managed Detox: Requires at least one of the followin. CIWA greater than 12 2. Seizures within the past 24 hours 3. Delirium tremens within the past 24 hours 4. Hallucinations within the past 24 hours 5. Acute intervention needed for co occurring medical disorder 6. Acute intervention needed for co occurring psychiatric disorder 7. Severe withdrawal that cannot be handled at a lower level of care (continued vomiting, continued diarrhea, abnormal vital signs) requiring intravenous medication and/or fluids 8. Patient presents the following: CIWA greater than 12 Admission Criteria Met: Admission criteria met Admitting History and Physical - Smoking History Smoking history: Current every day smoker Have you smoked in the past 12 months: Yes Aproximately how many cigarettes per day: 10 - Alcohol/Substance Use Hx Alcohol Use: Yes Admission ROS [facility] Chief Complaint: SEEKING DETOX Allergies/Adverse Reactions: Allergies Allergy/AdvReac Type Severity Reaction Status Date / Time lorazepam [From Ativan] Allergy Mild Itching Verified 06/28/19 15:34 acetaminophen [From Tylenol] Allergy Rash Verified 06/28/19 15:34 ibuprofen Allergy Rash Verified 06/28/19 15:34 History of Present Illness: HERE FOR DETOX. CLIENT IS SELF REFERRED. KNOWN TO THIS PROGRAM . LAST HERE EARLIER THIS MONTH. REPORTS RELAPSING IMMEDIATELY AFTER DC. HIS DRUG OF CHOICE IS ALCOHOL AND HEROIN. HE LAST USE COCAINE. ALL ON A DAILY BASIS. LAST USE 1 DAY AGO. PRESENTS WITH C/O WITHDRAWAL SX'S. 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 DENIES HX/O SEIZURES, AVH, SI/HI. REPORTS LONGEST CLEAN TIME 6 YEARS. DENIES ANY SIGNIFICANT CLEAN TIME IN THE PAST YEAR. HOMELESS, UNEMPLOYED, DENIES LEGALS Exam Limitations: No Limitations - Ebola screening Have you traveled outside of the country in the last 21 days: No (N) Have you had contact with anyone from an Ebola affected area: No Do you have a fever: No - Review of Systems Constitutional: Chills, Loss of Appetite, Night Sweats, Changes in sleep, Unintentional Wgt. Loss EENT: reports: Other (MISSING TEETH) Respiratory: reports: No Symptoms reported Cardiac: reports: No Symptoms Reported GI: reports: Poor Appetite, Poor Fluid Intake, Abdominal cramping : reports: No Symptoms Reported Musculoskeletal: reports: No Symptoms Reported Integumentary: reports: Dryness Neuro: reports: Other (BLACK OUTS) Endocrine: reports: No Symptoms Reported Hematology: reports: No Symptoms Reported Psychiatric: reports: Orientated x3, Agitated (IRRITABLE), Anxious Other Systems: Reviewed and Negative Patient History - Patient Medical History Hx Anemia: No Hx Asthma: No Hx Chronic Obstructive Pulmonary Disease (COPD): No Hx Cancer: No Hx Cardiac Disorders: No Hx Congestive Heart Failure: No Hx Hypertension: Yes (no medication) Hx Hypercholesterolemia: No Hx Pacemaker: No HX Cerebrovascular Accident: No Hx Seizures: No Hx Dementia: No Hx Diabetes: No Hx Gastrointestinal Disorders: No Hx Liver Disease: No Hx Genitourinary Disorders: No Hx Sexually Transmitted Disorders: No Hx Renal Disease (ESRD): No Hx Thyroid Disease: No Hx Human Immunodeficiency Virus (HIV): No Hx Hepatitis C: No Hx Depression: No Hx Suicide Attempt: No Hx Bipolar Disorder: No Hx Schizophrenia: No Other Medical History: DENIES - Patient Surgical History Past Surgical History: No Hx Neurologic Surgery: No Hx Cataract Extraction: No Hx Cardiac Surgery: No Hx Lung Surgery: No Hx Breast Surgery: No Hx Breast Biopsy: No Hx Abdominal Surgery: No Hx Appendectomy: No Hx Cholecystectomy: No Hx Genitourinary Surgery: No Hx Section: No Hx Orthopedic Surgery: No Anesthesia Reaction: No - PPD History Previous Implant?: Yes Documented Results: Negative w/proof Implanted On Prior R Admission?: Yes Date: 06/19/18 Results: 0mm PPD to be Administered?: Yes - Smoking Cessation Smoking history: Current every day smoker Have you smoked in the past 12 months: Yes Aproximately how many cigarettes per day: 10 Cigars Per Day: 0 Hx Chewing Tobacco Use: No Initiated information on smoking cessation: Yes 'Breaking Loose' booklet given: 06/28/19 - Substance & Tx. History Hx Alcohol Use: Yes Hx Substance Use: Yes Substance Use Type: Alcohol, Cocaine, Heroin Hx Substance Use Treatment: Yes ([facility]) - Substances abused Alcohol Substance route: Oral Frequency: Daily Amount used: 1/2 pint VODKA,( 2) 6 PACKS OF BEER Age of first use: 12 Date of last use: 06/27/19 Heroin Substance route: Inhalation Frequency: Daily Amount used: 8 bags Age of first use: 25 Date of last use: 06/27/19 Cocaine Substance route: Inhalation Frequency: Daily Amount used: 1gm Age of first use: 25 Date of last use: 06/27/19 Admission Physical Exam BHS - Vital Signs Vital Signs: Vital Signs - 24 hr 06/28/19 06/28/19 15:33 17:03 Temperature 97.3 F L 97.3 F L Pulse Rate 63 63 Respiratory 18 18 Rate Blood Pressure 168/94 168/94 - Physical General Appearance: Yes: Appropriately Dressed, Mild Distress, Irritable, Anxious HEENTM: Yes: EOMI, Normocephalic, Normal Voice, VIVIANE, Pharynx Normal, Other ( MISSING TEETH) Respiratory: Yes: Chest Non-Tender, Lungs Clear, Normal Breath Sounds, No Respiratory Distress, No Accessory Muscle Use Neck: Yes: No masses,lesions,Nodules, Supple, Trachea in good position Breast: Yes: Breasts Symetrical, No Discharge Cardiology: Yes: Regular Rhythm, Regular Rate, S1, S2 Abdominal: Yes: Non Tender, Soft, Increased Bowel Sounds Genitourinary: Yes: Hesitency Back: Yes: Normal Inspection Musculoskeletal: Yes: full range of Motion, Gait Steady Extremities: Yes: Normal Capillary Refill, Normal Range of Motion, Non-Tender Neurological: Yes: Fully Oriented, Alert, Motor Strength 5/5 Integumentary: Yes: Dry, Warm, Other (POOR TUGOR) Lymphatic: Yes: Within Normal Limits - Diagnostic (1) Cocaine dependence, uncomplicated Current Visit: Yes Status: Acute (2) Skin turgor poor Current Visit: Yes Status: Acute (3) At risk for dehydration due to poor fluid intake Current Visit: Yes Status: Acute (4) Alcohol dependence with uncomplicated withdrawal Current Visit: No Status: Acute (5) Opioid dependence with withdrawal Current Visit: No Status: Acute (6) Nicotine dependence Current Visit: No Status: Chronic Qualifiers: Nicotine product type: cigarettes Substance use status: uncomplicated Qualified Code(s): F17.210 - Nicotine dependence, cigarettes, uncomplicated (7) Homeless Current Visit: Yes Status: Suspected Cleared for Admission S - Detox or Rehab [facility] Level of Care: Medically Managed Detox Regimen/Protocol: Librium Claeared for Rehab Admission: No Breathalyzer - Breathalyzer Breathalyzer: 0.025 Urine Drug Screen - Test Device Lot number: [id number] Expiration date: 02/06/21 - Control Is test valid?: Yes - Results Drug screen NEGATIVE: No Urine drug screen results: CHRISTOPHER-Cocaine, FEN-Fentanyl, MOP-Opiates, BZO- Benzodiazepines Inpatient Rehab Admission - Rehab Decision to Admit Inpatient rehab admission?: No
[2019-06-28] MEDS ORDERED: METHADONE HCL 10 MG TABLET (FOR DETOX USE ONLY) PO ONE (20:24)
[2019-06-28] MEDS ORDERED: cloNIDine HCL 0.1 MG TABLET PO PRN (20:24)
[2019-06-28] MEDS ORDERED: chlordiazePOXIDE HCL 10 MG CAPSULE PO PRN (20:24)
[2019-06-28] MEDS ORDERED: ONDANSETRON *ODT* 4 MG TABLET SL PRN (20:26)
[2019-06-28] MEDS ORDERED: BISMUTH SUBSALICYLATE 524 MG/30 ML UD PO PRN (20:26)
[2019-06-28] MEDS ORDERED: MELATONIN 5 MG TABLETS PO PRN (20:26)
[2019-06-28] MEDS ORDERED: guaiFENesin 200 MG/10 ML 10 ML UNIT-DOSE CUPS PO PRN (20:26)
[2019-06-28] MEDS ORDERED: MAGNESIUM HYDROX 2400MG/30ML ORAL SUSPENSION 30 ML CUP PO PRN (20:26)
[2019-06-28] MEDS ORDERED: MENTHOL/PHENOL 1 EACH UD MM PRN (20:26)
[2019-06-28] MEDS ORDERED: NICOTINE POLACRILEX 2 MG GUM BUC PRN (20:26)
[2019-06-28] MEDS ORDERED: hydrOXYzine PAMOATE 25 MG CAPSULE (FP) PO PRN (20:26)
[2019-06-28] MEDS ORDERED: P-EPHED 60MG/TRIPROLIDI 2.5MG TABLET PO PRN (20:26)
[2019-06-28] MEDS ORDERED: METHOCARBAMOL 500 MG TABLET PO PRN (20:26)
[2019-06-28] MEDS ORDERED: MAG HYDROX/AL HYDROX/SIMETH 30 ML UNIT-DOSE CUP PO PRN (20:26)
[2019-06-28] MEDS ORDERED: MAGNESIUM CITRATE 300 ML BOTTLE PO PRN (20:26)
[2019-06-28] MEDS ORDERED: DICYCLOMINE HCL 10 MG CAPSULE PO PRN (20:26)
[2019-06-28] MEDS: THIAMINE HCL 100 MG TABLET (FP) PO SCH (21:30)
[2019-06-28] MEDS: chlordiazePOXIDE HCL 25 MG CAPSULE PO SCH (21:31)
[2019-06-29] MEDS: chlordiazePOXIDE HCL 25 MG CAPSULE PO SCH ×3 (05:16→21:30)
[2019-06-29] MEDS ORDERED: METHADONE HCL 5 MG TABLET (FOR DETOX USE ONLY) PO ONE (10:00)
[2019-06-29] MEDS: PRENATAL VITAMINS W/ FOLIC ACID TABLET (FP) PO SCH (10:21)
[2019-06-29] MEDS: NICOTINE 14 MG/24 HOURS TOPICAL PATCH TD SCH (10:24)
--- NOTE | 2019-06-29 10:56 | PN ---
S CIWA - CIWA Score Nausea/Vomitin-Mild Nausea/No Vomiting Muscle Tremors: 2 Anxiety: 2 Agitation: 2 Paroxysmal Sweats: No Perspiration Orientation: 0-Oriented Tacttile Disturbances: 1-Very Mild Itch/Numbness Auditory Disturbances: 0-None Visual Disturbances: 0-None Headache: 2-Mild CIWA-Ar Total Score: 10 BHS COWS - Scale Resting Pulse: 0= [place] 80 or Below Sweatin= Chills/Flushing Restless Observation: 1= Difficult to Sit Still Pupil Size: 1= Pupils >than Normal Bone or Joint Aches: 2= Severe Diffuse Aches Runny Nose/ Eye Tearin= Nasal Congestion GI Upset > 30mins: 1= Stomach Cramp Tremor Observation of Outstretched Hands: 2= Slight Tremor Visible Yawning Observation: 1= 1-2x During Session Anxiety or Irritability: 2=Irritable/Anxious Goose Flesh Skin: 0=Smooth Skin COWS Score: 12 BHS Progress Note (SOAP) Subjective: alert,irritable,anxious,interrupted sleep,tremor,pain in the body and back Objective: 06/29/19 10:55 Vital Signs Temperature 97.7 F 06/29/19 06:43 Pulse Rate 53 L 06/29/19 09:29 Respiratory Rate 16 06/29/19 09:29 Blood Pressure 173/85 H 06/29/19 09:29 O2 Sat by Pulse Oximetry (%) 06/29/19 10:55 patient refused blood test Assessment: 06/29/19 10:55 withdrawal symptom Plan: continue detox methadone and librium regimen
[2019-06-29] MEDS: VITAMINS A AND D TOPICAL OINTMENT 60 GM TUBE TP SCH ×3 (13:24→23:52)
[2019-06-29] MEDS: THIAMINE HCL 100 MG TABLET (FP) PO SCH (21:30)
[2019-06-30] MEDS ORDERED: chlordiazePOXIDE 5 MG CAPSULE PO SCH (05:00)
[2019-06-30] MEDS: VITAMINS A AND D TOPICAL OINTMENT 60 GM TUBE TP SCH (05:26)
[2019-06-30 09:31] VITALS: BP 164/95; PULSE 72; TEMP 98.8
[2019-06-30] MEDS ORDERED: METHADONE HCL 10 MG TABLET (FOR DETOX USE ONLY) PO ONE (10:00)
--- NOTE | 2019-06-30 10:15 | PN ---
[facility] CIWA - CIWA Score Nausea/Vomitin-Mild Nausea/No Vomiting Muscle Tremors: 2 Anxiety: 2 Agitation: 2 Paroxysmal Sweats: No Perspiration Orientation: 0-Oriented Tacttile Disturbances: 1-Very Mild Itch/Numbness Auditory Disturbances: 0-None Visual Disturbances: 0-None Headache: 2-Mild CIWA-Ar Total Score: 10 BHS COWS - Scale Resting Pulse: 0= [place] 80 or Below Sweatin= No chills or Flushing Restless Observation: 1= Difficult to Sit Still Pupil Size: 1= Pupils >than Normal Bone or Joint Aches: 1= Mild Discomfort Runny Nose/ Eye Tearin= Nasal Congestion GI Upset > 30mins: 1= Stomach Cramp Tremor Observation of Outstretched Hands: 1= Tremor [place], Not Seen Yawning Observation: 1= 1-2x During Session Anxiety or Irritability: 2=Irritable/Anxious Goose Flesh Skin: 0=Smooth Skin COWS Score: 9 BHS Progress Note (SOAP) Subjective: alert,irritable,anxious,interrupted sleep,pain in the body Objective: 06/30/19 10:14 Vital Signs Temperature 98.8 F 06/30/19 09:30 Pulse Rate 72 06/30/19 09:30 Respiratory Rate 18 06/30/19 09:30 Blood Pressure 164/95 06/30/19 09:30 O2 Sat by Pulse Oximetry (%) Assessment: 06/30/19 10:15 withdrawal symptom Plan: continue detox methadone and librium regimen
[2019-06-30] MEDS: PRENATAL VITAMINS W/ FOLIC ACID TABLET (FP) PO SCH (10:52)
[2019-06-30] MEDS: NICOTINE 14 MG/24 HOURS TOPICAL PATCH TD SCH (10:52)
--- NOTE | 2019-06-30 11:07 | PN ---
Leni Progress Note Note: patient did not want to complete treatment,high risk of relapsing explained, understood,all attempts to convince patient to stay with no avail,signed release ama,
--- NOTE | 2019-06-30 11:10 | DS ---
[facility] Detox Discharge Summary Admission Date: 06/28/19 Discharge Date: 06/30/19 - History Present History: Alcohol Dependence, Cocaine Dependence, Opioid Dependence Additional Comments: patient left ama,advise to call 911 if not feeling well - Physical Exam Results Vital Signs: Vital Signs Temperature 98.8 F 06/30/19 09:30 Pulse Rate 72 06/30/19 09:30 Respiratory Rate 18 06/30/19 09:30 Blood Pressure 164/95 06/30/19 09:30 O2 Sat by Pulse Oximetry (%) Pertinent Admission Physical Exam Findings: withdrawal signs and symptom - Medication Discharge Medications: Ambulatory Orders NK [No Known Home Medication] 06/28/19 - Diagnosis (1) Cocaine dependence, uncomplicated Current Visit: Yes Status: Acute (2) Alcohol dependence with uncomplicated withdrawal Current Visit: No Status: Acute (3) Opioid dependence with withdrawal Current Visit: No Status: Acute - AMA Did Patient Leave Against Medical Advice: Yes
[2019-07-01] MEDS ORDERED: chlordiazePOXIDE HCL 10 MG CAPSULE PO PRN
[2019-07-01] MEDS ORDERED: chlordiazePOXIDE HCL 10 MG CAPSULE PO SCH (05:00)
[2019-07-01] MEDS ORDERED: METHADONE HCL 5 MG TABLET (FOR DETOX USE ONLY) PO ONE (06:00)
[2019-07-02] MEDS ORDERED: chlordiazePOXIDE HCL 10 MG CAPSULE PO ONE (05:00)
== END 2019-06-30 11:30 | disposition left against medical advice (07) | DRG 770 ==
LOC: YASAS 15:26 → Y6N 20:35
PROVIDERS: ADMIT Allergy & Immunology; ATTEND Allergy & Immunology
PROC: HZ2ZZZZ Detoxification Services for Substance Abuse Treatment (ICD-10-PCS; principal; 2019-06-28)
DX: F11.23 Opioid dependence with withdrawal (principal); F10.230 Alcohol dependence with withdrawal, uncomplicated; F14.20 Cocaine dependence, uncomplicated; F17.210 Nicotine dependence, cigarettes, uncomplicated; I10 Essential (primary) hypertension; R63.4 Abnormal weight loss; R63.8 Other symptoms and signs concerning food and fluid intake; Z88.6 Allergy status to analgesic agent; Z59.0 Homelessness

== ENCOUNTER 2023-06-23 19:50 | Inpatient (IN) | payer OTHER ==
[2023-06-23 20:49] VITALS: BMI 23.6
[2023-06-23] MEDS ORDERED: guaiFENesin 600 MG TABLET.ER (FP) PO PRN (22:51)
[2023-06-23] MEDS ORDERED: MAG HYDROX/AL HYDROX/SIMETH 30 ML UNIT-DOSE CUP PO PRN (22:51)
[2023-06-23] MEDS ORDERED: BENZOCAINE/MENTHOL (CHLORASEPTIC ) LOZENGE MM PRN (22:51)
[2023-06-23] MEDS ORDERED: hydrOXYzine PAMOATE 25 MG CAPSULE (FP) PO PRN (22:51)
[2023-06-23] MEDS ORDERED: MAGNESIUM HYDROX 2400MG/30ML ORAL SUSPENSION 30 ML CUP PO PRN (22:51)
[2023-06-23] MEDS ORDERED: LOPERAMIDE HCL 2 MG CAPSULE PO PRN (22:51)
[2023-06-23] MEDS ORDERED: NICOTINE POLACRILEX 2 MG GUM BUC PRN (22:51)
[2023-06-23] MEDS ORDERED: ONDANSETRON *ODT* 4 MG TABLET SL PRN (22:51)
[2023-06-23] MEDS ORDERED: POLYETHYLENE GLYCOL (HEALTHYLAX) 3350 17 GM PACKET PO PRN (22:51)
[2023-06-23] MEDS ORDERED: DICYCLOMINE HCL 10 MG CAPSULE PO PRN (22:51)
[2023-06-23] MEDS ORDERED: NALOXONE HCL (KLOXXADO) 8 MG SPRAY NS PRN (22:51)
[2023-06-23] MEDS ORDERED: NALOXONE HCL 0.4 MG/ML VIAL IM PRN (22:51)
[2023-06-23] MEDS ORDERED: BENZONATATE 200 MG CAPSULE PO PRN (22:51)
[2023-06-23] MEDS ORDERED: BISMUTH SUBSALICYLATE 524 MG/30 ML PO PRN (22:51)
[2023-06-23] MEDS ORDERED: METHOCARBAMOL 500 MG TABLET PO PRN (22:51)
[2023-06-23] MEDS ORDERED: methaDONE HCL 10 MG TABLET (FOR DETOX USE ONLY) PO ONE (22:59)
[2023-06-23] MEDS ORDERED: chlordiazePOXIDE HCL 25 MG CAPSULE PO PRN (22:59)
[2023-06-23] MEDS ORDERED: methaDONE HCL 10 MG TABLET (FOR DETOX USE ONLY) ONE (23:30)
[2023-06-23] MEDS ORDERED: chlordiazePOXIDE HCL 25 MG CAPSULE ONE (23:30)
[2023-06-23] MEDS: chlordiazePOXIDE HCL 25 MG CAPSULE PO SCH (23:46)
[2023-06-23] MEDS ORDERED: cloNIDine HCL 0.1 MG TABLET ONE (23:48)
[2023-06-23] MEDS: cloNIDine HCL 0.1 MG TABLET PO PRN (23:50)
[2023-06-24] MEDS: chlordiazePOXIDE HCL 25 MG CAPSULE PO SCH ×2 (05:41→10:13)
[2023-06-24] MEDS: cloNIDine HCL 0.1 MG TABLET PO PRN ×2 (06:56→17:15)
[2023-06-24] MEDS ORDERED: NICOTINE 14 MG/24 HOURS TOPICAL PATCH TD SCH (10:00)
[2023-06-24] MEDS ORDERED: PRENATAL VITAMINS W/ FOLIC ACID TABLET (FP) PO SCH (10:00)
[2023-06-24 10:17] LABS: HEMATOCRIT 30.7 % (35.4-49); HEMOGLOBIN 9.8 GM/dL (11.7-16.9); MCH 32.4 pg (25.7-33.7); MEAN CELL VOLUME 101.2 fl (80-96); MEAN PLT VOLUME 7.6 fl (7.5-11.1); PLATELET COUNT 220 10^3/uL (134-434); RBC 3.03 M/mm3 (4.00-5.60); RDW 15.2 % (11.9-15.9); WHITE BLOOD COUNT 3.5 K/mm3 (4.0-10.0)
[2023-06-24 10:19] LABS: POTASSIUM 3.7 mmol/L (3.5-5.1)
[2023-06-24 10:29] LABS: CALCIUM 7.8 mg/dL (8.5-10.1)
[2023-06-24 10:30] LABS: ALBUMIN 2.5 g/dl (3.4-5.0); BLOOD UREA NITROGEN 25.5 mg/dL (7-18)
[2023-06-24 10:33] LABS: CREATININE 1.6 mg/dL (0.55-1.3)
[2023-06-24 10:34] LABS: BILIRUBIN,TOTAL 0.6 mg/dL (0.2-1)
[2023-06-24 10:35] LABS: TOT PROT 6.6 g/dl (6.4-8.2)
[2023-06-24] MEDS ORDERED: diazePAM 5 MG TABLET PO PRN (15:30)
[2023-06-24] MEDS ORDERED: amLODIPine BESYLATE 5 MG TABLET (FP) PO SCH (16:00)
[2023-06-24] MEDS: diazePAM 5 MG TABLET PO SCH ×2 (17:36→23:34)
[2023-06-24 18:14] VITALS: BP 153/104; PULSE 82
[2023-06-24 18:26] VITALS: RESP 18; TEMP 98.2
[2023-06-24] MEDS ORDERED: THIAMINE HCL 100 MG TABLET (FP) PO SCH (22:00)
[2023-06-24] MEDS ORDERED: MELATONIN 5 MG TABLETS PO SCH (22:00)
[2023-06-25] MEDS ORDERED: chlordiazePOXIDE HCL 25 MG CAPSULE PO SCH (05:00)
[2023-06-25] MEDS ORDERED: methaDONE HCL 10 MG TABLET (FOR DETOX USE ONLY) PO ONE (10:00)
[2023-06-26] MEDS ORDERED: chlordiazePOXIDE HCL 10 MG CAPSULE PO PRN
[2023-06-26] MEDS ORDERED: chlordiazePOXIDE HCL 10 MG CAPSULE PO SCH (05:00)
[2023-06-26] MEDS ORDERED: diazePAM 5 MG TABLET PO SCH (06:00)
[2023-06-27] MEDS ORDERED: chlordiazePOXIDE HCL 10 MG CAPSULE PO SCH (05:00)
[2023-06-27] MEDS ORDERED: methaDONE HCL 10 MG TABLET (FOR DETOX USE ONLY) PO ONE (10:00)
[2023-06-27] MEDS ORDERED: diazePAM 5 MG TABLET PO SCH (10:00)
[2023-06-28] MEDS ORDERED: chlordiazePOXIDE HCL 10 MG CAPSULE PO ONE (05:00)
[2023-06-28] MEDS ORDERED: diazePAM 5 MG TABLET PO ONE (06:00)
== END 2023-06-24 23:36 | disposition short-term general hospital (02) | DRG 773 ==
LOC: YASAS 19:50 → Y3N 23:04
PROVIDERS: ADMIT Allergy & Immunology; ATTEND Surgery
PROC: HZ2ZZZZ Detoxification Services for Substance Abuse Treatment (ICD-10-PCS; principal; 2023-06-23)
DX: F11.23 Opioid dependence with withdrawal (principal); F10.230 Alcohol dependence with withdrawal, uncomplicated; F14.20 Cocaine dependence, uncomplicated; F17.210 Nicotine dependence, cigarettes, uncomplicated; I10 Essential (primary) hypertension; R60.0 Localized edema; R41.82 Altered mental status, unspecified; Z88.6 Allergy status to analgesic agent; Z88.0 Allergy status to penicillin
CPT/HCPCS: 36415; 80053; 85027; 86593; 86780; 87635; 87811; 93005; 93010

== ENCOUNTER 2023-06-24 19:22 | Inpatient (IN) | payer OTHER ==
[2023-06-24 19:40] VITALS: BMI 23.8
[2023-06-24 20:56] LABS: BASO % 0.2 % (0-2.0); EOS % 0.1 % (0-4.5); HEMATOCRIT 29.2 % (35.4-49); HEMOGLOBIN 9.2 GM/dL (11.7-16.9); LYMPH % 13.6 % (8-40); MCH 31.8 pg (25.7-33.7); MCHC 31.5 g/dl (32.0-35.9); MEAN CELL VOLUME 101.1 fl (80-96); MEAN PLT VOLUME 7.3 fl (7.5-11.1); MONO % 9.6 % (3.8-10.2); NEUT % 76.5 % (42.8-82.8); PLATELET COUNT 210 10^3/uL (134-434); RBC 2.89 M/mm3 (4.00-5.60); RDW 14.8 % (11.9-15.9); WHITE BLOOD COUNT 5.5 K/mm3 (4.0-10.0)
[2023-06-24 21:15] LABS: CALCIUM 7.5 mg/dL (8.5-10.1)
[2023-06-24 21:16] LABS: ALBUMIN 2.4 g/dl (3.4-5.0); BLOOD UREA NITROGEN 24.2 mg/dL (7-18); MAGNESIUM 1.5 mg/dL (1.8-2.4)
[2023-06-24 21:19] LABS: CREATININE 1.3 mg/dL (0.55-1.3)
[2023-06-24 21:20] LABS: BILIRUBIN,TOTAL 0.6 mg/dL (0.2-1); TOT PROT 6.3 g/dl (6.4-8.2)
[2023-06-24] MEDS ORDERED: FUROSEMIDE 40 MG/4 ML INJECTABLE VIAL IVPUSH ONE (21:49)
[2023-06-24] MEDS ORDERED: FUROSEMIDE 40 MG/4 ML INJECTABLE VIAL ONE (22:00)
[2023-06-25] MEDS ORDERED: NALOXONE HCL 1 MG/ML ML IM ONE (03:13)
[2023-06-25] MEDS ORDERED: NICOTINE POLACRILEX 2 MG GUM BUC PRN (03:14)
[2023-06-25] MEDS ORDERED: diazePAM 5 MG TABLET PO PRN ×2 (03:18→03:39)
[2023-06-25] MEDS ORDERED: methaDONE HCL 10 MG TABLET PO ONE (03:26)
[2023-06-25] MEDS ORDERED: cloNIDine HCL 0.1 MG TABLET PO PRN (03:32)
[2023-06-25] MEDS ORDERED: MAGNESIUM SULF 50% (8.12 MEQ/2 ML-1 GM VIAL) IVPB ONE (04:07)
[2023-06-25] MEDS ORDERED: methaDONE HCL 10 MG TABLET ONE (04:20)
[2023-06-25] MEDS ORDERED: diazePAM 5 MG TABLET ONE ×3 (04:21→23:21)
[2023-06-25] MEDS ORDERED: FUROSEMIDE 40 MG/4 ML INJECTABLE VIAL ONE (04:21)
[2023-06-25] MEDS ORDERED: MAGNESIUM SULFATE IN WATER 2 GM/50 ML IVPB IVPB ONE (04:21)
[2023-06-25] MEDS: diazePAM 5 MG TABLET PO SCH ×4 (04:30→23:33)
[2023-06-25] MEDS: FUROSEMIDE 40 MG/4 ML INJECTABLE VIAL IVPUSH SCH ×2 (04:30→17:48)
[2023-06-25 08:53] LABS: BASO % 0.4 % (0-2.0); EOS % 0.2 % (0-4.5); HEMATOCRIT 28.9 % (35.4-49); LYMPH % 31.2 % (8-40); MCH 31.5 pg (25.7-33.7); MCHC 31.3 g/dl (32.0-35.9); MEAN CELL VOLUME 100.6 fl (80-96); MEAN PLT VOLUME 7.4 fl (7.5-11.1); MONO % 6.5 % (3.8-10.2); NEUT % 61.7 % (42.8-82.8); PLATELET COUNT 211 10^3/uL (134-434); RBC 2.88 M/mm3 (4.00-5.60); RDW 15.2 % (11.9-15.9); WHITE BLOOD COUNT 5.4 K/mm3 (4.0-10.0)
[2023-06-25 09:08] LABS: POTASSIUM 3.5 mmol/L (3.5-5.1)
[2023-06-25 09:15] LABS: ALBUMIN 2.3 g/dl (3.4-5.0); BLOOD UREA NITROGEN 27.4 mg/dL (7-18); CALCIUM 7.7 mg/dL (8.5-10.1); MAGNESIUM 2.1 mg/dL (1.8-2.4)
[2023-06-25 09:18] LABS: PHOSPHOROUS 2.8 mg/dL (2.5-4.9)
[2023-06-25 09:19] LABS: CREATININE 1.5 mg/dL (0.55-1.3)
[2023-06-25 09:20] LABS: BILIRUBIN,TOTAL 0.4 mg/dL (0.2-1); TOT PROT 6.2 g/dl (6.4-8.2)
[2023-06-25] MEDS: NICOTINE 14 MG/24 HOURS TOPICAL PATCH TD SCH (10:00)
[2023-06-25] MEDS: CARVEDILOL 3.125 MG TABLET (FP) PO SCH ×2 (10:00→23:31)
[2023-06-25] MEDS: FOLIC ACID 1 MG TABLET (FP) PO SCH (10:00)
[2023-06-25] MEDS: LOSARTAN POTASSIUM 50 MG TABLET PO SCH (10:00)
[2023-06-25] MEDS: THIAMINE HCL 100 MG TABLET (FP) PO SCH (10:00)
[2023-06-25] MEDS: ENOXAPARIN NA (PORCINE) 40 MG/0.4 ML DISP.SYRIN SQ SCH (10:21)
[2023-06-25] MEDS ORDERED: CARVEDILOL 3.125 MG TABLET (FP) ONE (23:21)
[2023-06-26] MEDS ORDERED: FUROSEMIDE 40 MG/4 ML INJECTABLE VIAL ONE (03:45)
[2023-06-26] MEDS: FUROSEMIDE 40 MG/4 ML INJECTABLE VIAL IVPUSH SCH (03:49)
[2023-06-26] MEDS ORDERED: MAGNESIUM OXIDE 400 MG TABLET (FP) ONE (05:20)
[2023-06-26] MEDS ORDERED: ACETAMINOPHEN 325 MG TABLET (FP) ONE (05:20)
[2023-06-26] MEDS ORDERED: diazePAM 5 MG TABLET PO SCH ×2 (06:00)
[2023-06-26] MEDS ORDERED: methaDONE HCL 10 MG TABLET PO ONE (06:00)
[2023-06-26] MEDS ORDERED: methaDONE HCL 40 MG DISPERSABLE TABLET ONE (06:03)
[2023-06-26] MEDS ORDERED: methaDONE HCL 10 MG TABLET ONE (06:05)
[2023-06-26] MEDS ORDERED: LOSARTAN POTASSIUM 50 MG TABLET ONE (09:23)
[2023-06-26] MEDS ORDERED: CARVEDILOL 12.5 MG TABLET (FP) ONE (09:23)
[2023-06-26] MEDS ORDERED: THIAMINE HCL 100 MG TABLET (FP) ONE (09:23)
[2023-06-26] MEDS ORDERED: NICOTINE 14 MG/24 HOURS TOPICAL PATCH TD ONE (09:24)
[2023-06-26] MEDS ORDERED: FOLIC ACID 1 MG TABLET (FP) ONE (09:24)
[2023-06-26] MEDS ORDERED: ENOXAPARIN NA (PORCINE) 40 MG/0.4 ML DISP.SYRIN SQ ONE (09:24)
[2023-06-26] MEDS ORDERED: CARVEDILOL 3.125 MG TABLET (FP) ONE (09:28)
[2023-06-26 09:56] VITALS: BP 132/84; PULSE 72; RESP 18; TEMP 98.2
[2023-06-26] MEDS: CARVEDILOL 3.125 MG TABLET (FP) PO SCH (11:40)
[2023-06-26] MEDS: LOSARTAN POTASSIUM 50 MG TABLET PO SCH (11:40)
[2023-06-26] MEDS: FOLIC ACID 1 MG TABLET (FP) PO SCH (11:40)
[2023-06-26] MEDS: ENOXAPARIN NA (PORCINE) 40 MG/0.4 ML DISP.SYRIN SQ SCH (11:41)
[2023-06-26] MEDS: NICOTINE 14 MG/24 HOURS TOPICAL PATCH TD SCH (11:41)
[2023-06-26] MEDS: THIAMINE HCL 100 MG TABLET (FP) PO SCH (11:41)
[2023-06-27] MEDS ORDERED: diazePAM 5 MG TABLET PO SCH ×2 (03:23→06:00)
[2023-06-27] MEDS ORDERED: diazePAM 5 MG TABLET PO PRN (03:25)
[2023-06-28] MEDS ORDERED: diazePAM 5 MG TABLET PO ONE ×2 (06:00)
== END 2023-06-26 13:37 | disposition left against medical advice (07) | DRG 194 ==
LOC: JER 19:22 → JERBED 23:10
PROVIDERS: ADMIT Internal Medicine
DX: I11.0 Hypertensive heart disease with heart failure (principal); I50.21 Acute systolic (congestive) heart failure; J18.9 Pneumonia, unspecified organism; N17.9 Acute kidney failure, unspecified; E83.42 Hypomagnesemia; D64.9 Anemia, unspecified; E78.5 Hyperlipidemia, unspecified; F10.10 Alcohol abuse, uncomplicated; F17.210 Nicotine dependence, cigarettes, uncomplicated; F31.9 Bipolar disorder, unspecified; I16.0 Hypertensive urgency; I44.4 Left anterior fascicular block; I49.1 Atrial premature depolarization; J98.11 Atelectasis; R45.1 Restlessness and agitation; Z59.00 Homelessness unspecified
CPT/HCPCS: 0241U-QW; 36415; 71045-TC-FY; 80053; 83735; 83880; 84100; 84484; 85025; 93005; 93010; 93306-TC; 99285-25